=== PATIENT | female | born 1960 | race Caucasian/White ===

== ENCOUNTER 2020-06-16 17:09 | Inpatient (IN) | payer OTHER ==
--- OUTSIDE RECORDS SUMMARY | 2020-06-16 18:56 | XMS REPORT | Continuity of Care Document ---
:1960 Author Organization [facility] t Address [address] [place] [address] Care Team Providers Name Role Phone Lisa BOWEN, Kan Attending Clinician Trev Escalante MD Attending Clinician Problems This patient has no known problems. Allergies, Adverse Reactions, Alerts This patient has no known allergies or adverse reactions. Medications This patient has no known medications. Procedures This patient has no known procedures. Encounters Start End Encounter Admission Attending Care Care Encounter Source Date/Time Date/Time Type Type Clinicians Facility Department ID 2020-06-12 2020-06-12 [facility] [id number] 11:00:00 23:59:00 Encounter [facility] [id number] [place] [id number] [place] [id number] 2019-06-13 2019-06-13 [facility] [id number] 16:45:08 23:59:00 Encounter [facility] [id number] [place] [id number] [place] [id number] 2019-06-13 2019-06-13 [facility] [id number] 16:44:50 16:44:50 Encounter [facility] [id number] [place] [id number] [place] [id number] 2019-06-13 2019-06-13 [facility] [id number] 16:44:31 16:44:31 Encounter Trev [facility] [id number] [place] [id number] [place] [id number] 2019-06-13 2019-06-13 [facility] Chevy Escalante [facility] [id number] 16:44:16 16:44:16 Encounter Trev [facility] [id number] [place] [id number] [place] [id number] 2019-06-13 2019-06-13 [facility] Chevy Escalante [facility] [id number] 16:44:00 16:44:00 Encounter Trev [facility] [id number] [place] [id number] [place] [id number] Results This patient has no known results.
--- NOTE | 2020-06-16 19:57 | P.HP ---
Certification for Inpatient With expected LOS: >2 Midnights Patient will require the following post-hospital care: Rehabilitation Practitioner: I am a practitioner with admitting privileges, knowledge of patient current condition, hospital course, and medical plan of care. Services: Services provided to patient in accordance with Admission requirements found in Title 42 Section 412.3 of the Code of Federal Regulations <[email or web address] gutierrez - Last Filed: 06/16/20 19:52> Patient History Date of Service: 06/16/20 Primary Care Provider: Lisa Reason for admission: Right hip fracture History of Present Illness: 60-year-old female with a past medical history of chronic pain, diabetic neuropathy, history of CVA in 2006, diabetes, hypertension and hypothyroidism presents to the hospital as a direct admit from due to a nondisplaced right hip fracture. Patient states that she has problems with balance ever since her stroke. She was going to the bathroom and tripped falling on her right side. States that this happened approximately 4 weeks ago. States that she has had worsening right hip pain ever since her fall. Today patient was referred to MRI for imaging of her right hip. MRI shows a right intertrochanteric nondisplaced fracture. Patient will be admitted and is scheduled for surgical repair tomorrow morning. 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 -: Hysterectomy -: Bladder suspension Psychosocial/ Personal History: Lives at home with boyfriend of many year - Family History Family History: Reviewed- Non-Contributory - Social History Smoking Status: Never smoker Alcohol use: No CD- Drugs: No Caffeine use: No Place of Residence: Home <Giuseppe Garcia - Last Filed: 06/16/20 19:52> Date of Service: 06/16/20 <Loc Walden - Last Filed: 06/18/20 15:33> Allergies acetaminophen [From Percocet] Allergy (Mild, Verified 06/16/20 23:34) Nausea/Vomiting codeine Allergy (Mild, Verified 06/16/20 23:34) Nausea/Vomiting oxycodone [From Percocet] Allergy (Mild, Verified 06/16/20 23:34) Nausea/Vomiting tramadol Allergy (Mild, Verified 06/16/20 23:34) Nausea/Vomiting Home Medications: ALPRAZolam [Alprazolam] 0.5 mg PO TID PRN 06/16/20 Albuterol Sulfate [Albuterol Sulfate Hfa] 1 puff IN DAILY PRN 06/16/20 Aspirin 81 mg PO DAILY 06/16/20 Clopidogrel Bisulfate [Plavix*] 75 mg PO DAILY 06/16/20 D3/Red Wine/Resveratrol/Malt [Super-D3+ Softgel] 1 cap PO DAILY 06/16/20 Diphenhydramine HCl [Benadryl Allergy] 25 mg PO Q4H PRN 06/16/20 Duloxetine [Cymbalta *] 60 mg PO DAILY 06/16/20 Gabapentin 300 mg PO QID 06/16/20 Glipizide [Glipizide ER] 10 mg PO DAILY 06/16/20 Hydrocodone 10/APAP 325 [Lena 10/325*] 1 tab PO QID PRN 06/16/20 Levothyroxine Sodium 200 mcg PO 0630 06/16/20 Lisinopril [Zestril] 5 mg PO BEDTIME 06/16/20 Magnesium Oxide [Magnesium] 500 mg PO BID 06/16/20 Metformin HCl [Metformin ER Osmotic] 1,000 mg PO BID 06/16/20 Montelukast [Singulair*] 10 mg PO BEDTIME 06/16/20 Omeprazole [Prilosec] 40 mg PO 0730 06/16/20 Simvastatin 10 mg PO BEDTIME 06/16/20 hydroCHLOROthiazide [Hydrochlorothiazide*] 25 mg PO DAILY 06/16/20 Review of Systems General: As per HPI Eyes: Unremarkable ENT: Other (Right ear deafness) Respiratory: Unremarkable Cardiovascular: Unremarkable Gastrointestinal: Unremarkable Genitourinary: Unremarkable Musculoskeletal: Leg Pain (Right hip), As per HPI Integumentary: Unremarkable Neurological: Incoordination (History of balance disorder secondary to CVA in 2006) Lymphatics: Unremarkable <Giuseppe Garcia - Last Filed: 06/16/20 19:52> Physical Examination - Physical Exam General: Alert, In no apparent distress, Oriented x3 HEENT: Atraumatic, Normocephalic, PERRLA Neck: Supple, No Thyromegaly, Other (Trachea midline) Respiratory: Clear to auscultation bilaterally, Normal air movement Cardiovascular: No edema, Normal pulses, Regular rate/rhythm, Normal S1 S2 Capillary refill: <2 Seconds Gastrointestinal: Normal bowel sounds, Soft and benign, Non-distended Musculoskeletal: No clubbing, No swelling, No contractures, No warmth, Tenderness (Right hip) Integumentary: No rashes, No breakdown, No significant lesion Neurological: Normal speech, Normal strength at 5/5 x4 extr, Normal tone, Abnormal gait <Giuseppe Garcia - Last Filed: 06/16/20 19:52> - Studies Laboratory Data (last 24 hrs) 06/17/20 22:22: Potassium 4.2 <Loc Walden - Last Filed: 06/18/20 15:33> Assessment and Plan - Plan Impression: Right nondisplaced intertrochanteric hip fracture: Type 2 diabetes mellitus: Essential hypertension: Chronic pain/neuropathy: Plan: Right nondisplaced intertrochanteric hip fracture: Patient is scheduled for surgical repair of right hip tomorrow morning with . Will keep NPO after midnight. PT consult for after surgery. Patient may need physical therapy and her rehabilitation after her surgery. Type 2 diabetes mellitus: Will start sliding scale insulin. Accu-Cheks a.c. HS. Diabetic diet. Essential hypertension: Will order hydralazine 10 mg q.4 hr for systolic blood pressure greater than 160 and diastolic blood pressure greater than 100. Will resume all medications once verified. Chronic pain/neuropathy: Will continue home pain medications. Discharge Plan: Home Plan to discharge in: Greater than 2 days - Advance Directives Does patient have a Living Will: No Does patient have a Durable POA for Healthcare: No - Code Status/Comfort Care Code Status Assessed: Yes Time Spent Managing Pts Care (In Minutes): 55 <Giuseppe Garcia - Last Filed: 06/16/20 19:52> Date of Service: 06/16/20 Patient is a 60-year-old female who is directly admitted from orthopedic office for hip fracture. Patient will be admitted and taken to the operating room in the morning. Vitals: Reviewed Physical exam: AAO x3 Musculoskeletal; pain on range of motion of the right leg Extremities: No clubbing, no cyanosis, no edema Assessment: 1. Right intratrochanteric hip fracture Plan: 1. Pain control 2. Orthopedic surgery 3. IV antibiotic therapy 4. GI and DVT prophylax <Loc Walden - Last Filed: 06/18/20 15:33>
[2020-06-16 20:32] VITALS: BMI 23.0
[2020-06-16] MEDS: INSULIN -REGULAR HUMAN 50 UNIT/0.5 ML ML SQ SCH (21:34)
[2020-06-16] MEDS: HYDROCODONE/APAP 10/325 TAB PO PRN (21:40)
[2020-06-16] MEDS: HYDRALAZINE HCL 20 MG/ML VIAL IV PRN (22:00)
[2020-06-16 22:59] LABS: Urine Appearance CLOUDY; Urine Bilirubin NEGATIVE (NEG); Urine Blood NEGATIVE (NEG); Urine Color YELLOW; Urine Glucose 2+ (NEG); Urine Protein 1+ (NEG); Urine Specific Gravity 1.015 (1.005-1.030); Urine Urobilinogen 0.2 mg/dL (0.2-1.0); Urine pH 6.5 (5.0-7.0)
[2020-06-16 23:01] LABS: Urine Microscopic Reflex ORDER UMIC
[2020-06-16] MEDS: ALPRAZOLAM 0.5 MG TABLET PO PRN (23:29)
[2020-06-16 23:56] LABS: Urine Culture Reflex Order REFLEXED
[2020-06-16 23:57] LABS: Urine Bacteria LOADED /HPF (<20)
[2020-06-16 23:58] LABS: Urine RBC <5 /HPF (NONE SEEN); Urine Urothelial Cells <5 /HPF (NONE SEEN)
[2020-06-17] MEDS: HEPARIN 5000 UNIT/ML 1 ML VIAL SQ SCH ×3 (00:04→15:40)
[2020-06-17] MEDS: HYDRALAZINE HCL 20 MG/ML VIAL IV PRN (01:55)
[2020-06-17] MEDS: MORPHINE 2 MG/ML SYR IV PRN ×3 (02:47→20:51)
[2020-06-17] MEDS ORDERED: [UNRECOGNIZED DRUG - REMARK] PO PRN (03:00)
[2020-06-17] MEDS ORDERED: ALPRAZOLAM 0.5 MG TABLET PO PRN (03:00)
[2020-06-17] MEDS ORDERED: DIPHENHYDRAMINE 25 MG TAB/CAP PO PRN ×2 (03:06→03:10)
[2020-06-17] MEDS: GABAPENTIN 300 MG CAP PO SCH ×5 (03:45→21:33)
[2020-06-17] MEDS: CEFTRIAXONE/SWI 1gm 1 GM/10 ML SYR IV SCH (03:50)
[2020-06-17] MEDS ORDERED: NA CHLORIDE 0.9% 1,000 ML IV SCH (04:00)
[2020-06-17] MEDS: PANTOPRAZOLE 40MG TABLET PO SCH (05:30)
[2020-06-17] MEDS: LEVOTHYROXINE SOD 0.1 MG TAB PO SCH (05:30)
[2020-06-17] MEDS: HYDROCODONE/APAP 10/325 TAB PO PRN ×3 (06:26→22:55)
[2020-06-17] MEDS ORDERED: HOME MED 1 EA UNK (Levothyroxine Sodium [Levothyroxine Sodium] 200 MCG) PO SCH (06:30)
[2020-06-17 06:42] LABS: Absolute Lymphocytes (CBC) 4.1 K/uL (0.7-4.9); Hematocrit 37.5 % (36.0-45.0); Lymphocytes % 26.1 % (15.3-44.8); MPV 8.2 fL (7.6-11.3); RBC Red Blood Cell Count 5.29 M/uL (3.86-4.86)
[2020-06-17 06:54] LABS: Protime INR 0.93
[2020-06-17 07:03] LABS: Albumin 3.4 g/dL (3.4-5.0); Bilirubin Total 0.3 mg/dL (0.2-1.0); Magnesium 1.5 mg/dL (1.8-2.4); Potassium 3.3 mmol/L (3.5-5.1)
[2020-06-17] MEDS ORDERED: Magnesium Sulfate 2gm IVPB 2 G/50 ML BAG IV ONE (07:07)
[2020-06-17] MEDS: INSULIN -REGULAR HUMAN 50 UNIT/0.5 ML ML SQ SCH ×5 (07:28→21:44)
[2020-06-17] MEDS: hydroCHLOROthiazide 12.5 MG CAP PO SCH (07:30)
[2020-06-17] MEDS: KCL 20 MEQ/100 mL IVPB 20 MEQ/100 ML BAG IV SCH ×2 (07:30→10:00)
[2020-06-17] MEDS ORDERED: PANTOPRAZOLE 40MG TABLET PO SCH (07:30)
[2020-06-17] MEDS: METFORMIN ER 500 MG TAB PO SCH ×2 (07:30→16:19)
--- NOTE | 2020-06-17 08:27 | RAD REPORT ---
EXAM DESCRIPTION: Charlene Single View06/17/2020 6:02 am CLINICAL HISTORY: Preop for hip surgery COMPARISON: 2016 FINDINGS: The right lateral costophrenic sulcus is not included in the field of view and is not eval uated The visualized lungs appear clear of acute infiltrate. Lungs are hyperaerated consistent with COPD The heart is normal size
[2020-06-17 08:29] LABS: Anisocytosis 1+; Blood Morphology Comment NOTED (NOT SEEN); Platelet Estimate INCR; Urine White Blood Cell Casts OK
[2020-06-17] MEDS ORDERED: CEFTRIAXONE 1 GM/NS 50 ML 1 GM/50 ML BAG IV SCH ×2 (09:00)
[2020-06-17] MEDS ORDERED: HOME MED 1 EA UNK (Metformin Hcl [Metformin Er Osmotic] 1,000 MG) PO SCH (09:00)
[2020-06-17] MEDS: NA CHLORIDE 0.9% 1,000 ML IV SCH ×2 (09:41→14:59)
[2020-06-17] MEDS ORDERED: TRANEXAMIC ACID 1,000 MG in NA CHLORIDE 0.9% 50 ML IV ONE (10:00)
--- NOTE | 2020-06-17 10:17 | CON ---
Date of Consultation: 06/17/2020 History Of Present Illness: I have seen this patient in the past, actually saw in office recently. She was there because she was having fairly unremitting pain related to her right hip. X-rays were t aken at that time, which failed to demonstrate any fractures or dislocations. However, based on her history of osteoporosis as well as persistent pain, decision was made to proceed with the MRI and was expecting to find the rami fracture or perhaps sacral insufficiency fracture. However, called by Ra arroyo today and she has an intertrochanteric fracture which is nondisplaced, which basically goes a cross the proximal femur. This was gently recognized as an unstable fracture pattern and could go on to failure or failure to heal. Therefore, she was called at home and [facility] She is admitted under the care of the hospitalist. Review of MRI does reveal a nondisplaced frac ture in the intertrochanteric region. She says that she has had some increasing pain. Risks, benefi ts, and alternatives have been discussed with her both yesterday as well as today, and we will most l ikely proceed with fixation of her hip around 11 this morning. Her questions were otherwise answered . /YOKASTA Voice ID: [id number] Report ID: [id number]
[2020-06-17] MEDS ORDERED: propofoL 200 MG/20 ML VIAL IV ONE (11:09)
[2020-06-17] MEDS ORDERED: FENTANYL CITR 100 MCG/2 ML ONE (11:09)
[2020-06-17] MEDS ORDERED: MIDAZOLAM HCL 2 MG/2 ML INJ ONE (11:09)
[2020-06-17] MEDS ORDERED: LIDOCAINE 2% MPF 5 ML VIAL ONE (11:09)
[2020-06-17] MEDS ORDERED: dexAMETHasone 10 MG/ML VIAL ONE (11:09)
[2020-06-17] MEDS ORDERED: EPHEDRINE SULF 50 MG/ML VIAL ONE (12:25)
[2020-06-17] MEDS ORDERED: KETOROLAC 30 MG/ML INJ ONE (12:50)
--- NOTE | 2020-06-17 12:50 | P.BOP ---
Preoperative diagnosis: right it fracture Postoperative diagnosis: same Primary procedure: right hiup RENEE fixation Estimated blood loss: 20 ccs Anesthesia: General Complications: None Transferred to: Recovery Room Condition: Good
[2020-06-17] MEDS ORDERED: HYDROMORPHONE HCL 0.5 MG/0.5 ML INJ IV PRN (12:56)
[2020-06-17] MEDS: HYDROMORPHONE HCL 1 MG/ML INJ ONE ×4 (13:05→13:22)
[2020-06-17] MEDS ORDERED: ONDANSETRON 4 MG/2 ML VIAL ONE (13:14)
[2020-06-17] MEDS ORDERED: MEPERIDINE HCL 25 MG/ML SYR ONE (13:14)
[2020-06-17] MEDS: MIDAZOLAM HCL 2 MG/2 ML INJ ONE ×2 (13:17→13:56)
--- NOTE | 2020-06-17 13:18 | RAD REPORT ---
EXAM DESCRIPTION: RAD - Hip In Or - 06/17/2020 12:54 pm FINDINGS: A total of 7 images were submitted from a fluoroscopic assisted placement of fracture fixa tion hardware. No suspicious or unexpected finding. Fluoro time was 1.2 minutes. Cumulative dose was 6.42 mGy.
[2020-06-17] MEDS ORDERED: HYDROMORPHONE HCL 1 MG/ML INJ ONE (13:34)
[2020-06-17] MEDS: ONDANSETRON 4 MG/2 ML VIAL IV PRN (20:51)
[2020-06-17] MEDS: ENOXAPARIN 30 MG/0.3 ML SQ SCH (21:00)
[2020-06-17] MEDS: lisinopriL 5 MG TAB PO SCH (21:33)
[2020-06-17] MEDS: MONTELUKAST 10 MG TAB PO SCH (21:33)
[2020-06-17] MEDS: NICOTINE 21 MG/PAT TD SCH ×2 (21:33→22:56)
--- NOTE | 2020-06-17 21:59 | OP ---
Date of Procedure: 06/17/2020 Surgeon: Mahin Gonzalez MD Preoperative Diagnosis: Nondisplaced intertrochanteric fracture on the right. Postoperative Diagnosis: Nondisplaced intertrochanteric fracture on the right. Procedure: Right intertrochanteric fracture closed reduction with intramedullary lashanda fixation. Estimated Blood Loss: 20 cc. Complications: There were no complications. Specimens: No pathology specimen sent. Indications For Operation: Ms. Higgins is a 60-year-old female, who does have a history of fairly sign ificant ostial product change. She came to see me approximately 3 weeks after she had fallen, having very significant amount of difficulty with ambulation, complaining of hip pain. X-rays were taken a t that time in my office did not demonstrate any fracture or dislocation. There was concern for perh aps a small unobserved crack in the femoral neck, however, you would expect that this would be more v isible at this time, also possibility of a pelvic fracture or sacral fracture, and so we ordered an M RI basically just to double check and unfortunately radiologist called with finding of a complete int ertrochanteric fracture with no displacement. She was then brought to the hospital under the care of the hospitalist and cleared, and undergoes fixation of this fracture. The risks, benefits, and alte rnatives of this have been discussed with her. She states she understands things as presented. Description Of Procedure: The patient was taken to the operating room and placed in supine position. General anesthesia was obtained by the staff. Following this, she was then placed on the fracture table where she was properly positioned with regard to her bony prominences as well as probably posit ioned on the fracture table. The C-arm was brought in good AP and lateral views. It was then preppe d and draped in the usual sterile fashion. The greater trochanter was marked out. A vertical incisi on was made just above the greater trochanter, taken down through fascia. A finger was placed into t he incision and the starting awl was then placed without difficulty. This was followed by placement of a guide pin, placed without difficulty. After this, the guide pin was then overreamed and a size 9 x 125 nail was then gently placed to appropriate depth. It was checked under biplanar C-arm radiog veronica as a cephalomedullary screw was then placed. This was followed by placement of a distal interl ocking screw. The wounds were then irrigated and the fascia closed in a watertight fashion using hea vy Vicryl sutures followed by closure of the skin with Vicryl followed by mark. She was then plac ed in Aquacel dressing, awakened, and taken to recovery room. There were no complications. SE/MODL Voice ID: [id number] Report ID: [id number]
[2020-06-18] MEDS: NA CHLORIDE 0.9% 1,000 ML IV SCH ×4 (00:45→20:15)
[2020-06-18] MEDS: MORPHINE 2 MG/ML SYR IV PRN ×4 (00:45→13:25)
[2020-06-18] MEDS: LEVOTHYROXINE SOD 0.1 MG TAB PO SCH (06:30)
[2020-06-18] MEDS: INSULIN -REGULAR HUMAN 50 UNIT/0.5 ML ML SQ SCH ×4 (07:30→20:16)
[2020-06-18] MEDS: PANTOPRAZOLE 40MG TABLET PO SCH (07:37)
[2020-06-18] MEDS: ENOXAPARIN 30 MG/0.3 ML SQ SCH ×2 (08:23→20:16)
[2020-06-18] MEDS: METFORMIN ER 500 MG TAB PO SCH ×2 (08:24→16:26)
[2020-06-18] MEDS: hydroCHLOROthiazide 12.5 MG CAP PO SCH (08:24)
[2020-06-18] MEDS: GABAPENTIN 300 MG CAP PO SCH ×4 (08:25→20:15)
[2020-06-18] MEDS: NICOTINE 21 MG/PAT TD SCH (08:26)
[2020-06-18] MEDS: CEFTRIAXONE/SWI 1gm 1 GM/10 ML SYR IV SCH (08:27)
[2020-06-18] MEDS: HYDROCODONE/APAP 10/325 TAB PO PRN ×2 (10:42→18:00)
--- NOTE | 2020-06-18 15:39 | P.PN ---
Subjective Date of Service: 06/17/20 Patient status post surgery. Continue with pain control. Patient is having significant pain. Continue with physical therapy. Attempting to go to inpatient rehab afterwards. Review of Systems 10-point ROS is otherwise unremarkable Physical Examination - Vital Signs Temperature: 97.8 F Blood Pressure: 143/69 Pulse: 97 Respirations: 20 Pulse Ox (%): 98 - Physical Exam General: Alert, In no apparent distress, Oriented x3 Respiratory: Clear to auscultation bilaterally, Normal air movement Cardiovascular: Regular rate/rhythm, Normal S1 S2, No murmurs Gastrointestinal: Normal bowel sounds, No tenderness Musculoskeletal: No clubbing, No swelling, Tenderness Integumentary: No rashes Neurological: Sensation intact - Studies Laboratory Data (last 24 hrs) 06/17/20 22:22: Potassium 4.2 Medications List Reviewed: Yes Assessment & Plan - Problems (Diagnosis) (1) Intertrochanteric fracture of right femur Current Visit: Yes Status: Acute (2) Status post open reduction and internal fixation (ORIF) of fracture Current Visit: Yes Status: Acute (3) Hypertension Current Visit: Yes Status: Acute Qualifiers: Hypertension type: essential hypertension Qualified Code(s): I10 - Essential (primary) hypertension (4) Type 2 diabetes mellitus Current Visit: Yes Status: Acute 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 Physical therapy evaluation 2. DVT prophylaxis 3. Strict blood sugar and blood pressure control 4. Continue with cardiac med 5. GI and DVT prophylaxis Discharge Plan: Home Plan to discharge in: Greater than 2 days - Advance Directives Does patient have a Living Will: No Does patient have a Durable POA for Healthcare: No - Code Status/Comfort Care Code Status Assessed: Yes Code Status: Full Code Critical Care: No Time Spent Managing PTS Care (In Minutes): 30
[2020-06-18] MEDS: HYDROMORPHONE HCL 0.5 MG/0.5 ML INJ IV PRN ×2 (16:00→20:16)
[2020-06-18] MEDS: HYDRALAZINE HCL 20 MG/ML VIAL IV PRN (16:27)
[2020-06-18] MEDS: ONDANSETRON 4 MG/2 ML VIAL IV PRN (17:09)
[2020-06-18] MEDS: lisinopriL 5 MG TAB PO SCH (20:15)
[2020-06-18] MEDS: MONTELUKAST 10 MG TAB PO SCH (20:15)
[2020-06-18] MEDS: ALPRAZOLAM 0.5 MG TABLET PO PRN (23:29)
[2020-06-19] MEDS: HYDROMORPHONE HCL 0.5 MG/0.5 ML INJ IV PRN ×2 (01:19→09:25)
[2020-06-19] MEDS: NA CHLORIDE 0.9% 1,000 ML IV SCH ×3 (01:36→12:29)
[2020-06-19 02:27] VITALS: O2SAT 98
[2020-06-19] MEDS: LEVOTHYROXINE SOD 0.1 MG TAB PO SCH (05:18)
[2020-06-19] MEDS: PANTOPRAZOLE 40MG TABLET PO SCH (05:18)
[2020-06-19] MEDS: HYDRALAZINE HCL 20 MG/ML VIAL IV PRN (05:18)
--- NOTE | 2020-06-19 05:22 | PN ---
Date of Progress Note: 06/18/2020 Subjective: The patient is seen today. She is conversant. She says she does have some soreness in her hip, otherwise doing well. Objective: Her dressing is clean, dry, and intact. She is neurovascularly intact. Assessment And Plan: I think that she is doing well as it is completely nondisplaced. We will go ah ead and weightbearing as tolerated with physical therapy. [facility] and an opinion of the hospitalist. I think she does need to be on anticoagulation for 3 weeks and then aspirin for 3 weeks. Her mark were removed at 2 weeks. All of her questions we re otherwise answered. SE/MODL Voice ID: [id number] Report ID: [id number]
[2020-06-19] MEDS: INSULIN -REGULAR HUMAN 50 UNIT/0.5 ML ML SQ SCH ×2 (07:30→11:30)
[2020-06-19] MEDS: ENOXAPARIN 30 MG/0.3 ML SQ SCH (09:00)
[2020-06-19] MEDS: hydroCHLOROthiazide 12.5 MG CAP PO SCH (09:15)
[2020-06-19] MEDS: NICOTINE 21 MG/PAT TD SCH (09:16)
[2020-06-19] MEDS: GABAPENTIN 300 MG CAP PO SCH ×2 (09:16→13:25)
[2020-06-19] MEDS: CEFTRIAXONE/SWI 1gm 1 GM/10 ML SYR IV SCH (09:16)
[2020-06-19] MEDS: METFORMIN ER 500 MG TAB PO SCH (09:16)
[2020-06-19] MEDS: HYDROCODONE/APAP 10/325 TAB PO PRN (13:28)
--- NOTE | 2020-06-19 14:01 | P.PN ---
Subjective Date of Service: 06/18/20 Patient did well with physical therapy. 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 Anticipate discharge in next 24-48 hr. Review of Systems 10-point ROS is otherwise unremarkable Physical Examination - Vital Signs Temperature: 97.3 F Blood Pressure: 146/76 Pulse: 109 Respirations: 18 Pulse Ox (%): 97 - Physical Exam General: Alert, In no apparent distress, Oriented x3 Respiratory: Clear to auscultation bilaterally, Normal air movement Cardiovascular: Regular rate/rhythm, Normal S1 S2, No murmurs Gastrointestinal: Normal bowel sounds, Soft and benign, Non-distended, No tenderness Musculoskeletal: No clubbing, No swelling, No tenderness Neurological: Sensation intact, Cranial nerves 3-12 intact - Studies Microbiology Data (last 24 hrs): 06/16/20 22:35 Clean Catch Urine Mcdonald Count - Final >100,000 CFU/ML. 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 Physical therapy evaluation appreciated. Patient walked to the lab with physical therapy today. Possible discharge tomorrow or day after 2. DVT prophylaxis; continue Eliquis 2.5mg b.i.d. at discharge 3. Strict blood sugar and blood pressure control 4. Continue with cardiac med 5. GI and DVT prophylaxis Discharge Plan: Home Plan to discharge in: 48 Hours - Advance Directives Does patient have a Living Will: No Does patient have a Durable POA for Healthcare: No - Code Status/Comfort Care Code Status: Full Code Critical Care: No Time Spent Managing PTS Care (In Minutes): 30
[2020-06-19 16:30] VITALS: BP 110/72; TEMP 97
--- NOTE | 2020-06-20 08:48 | P.DS ---
Discharge Date: 06/19/20 Primary Care Provider: Lisa Disposition: ROUTINE DISCHARGE Discharge Condition: GOOD Reason for Admission: Right hip fracture - Problems (1) Intertrochanteric fracture of right femur Status: Acute (2) Status post open reduction and internal fixation (ORIF) of fracture Status: Acute (3) Hypertension Status: Acute Qualifiers: Hypertension type: essential hypertension Qualified Code(s): I10 - Essential (primary) hypertension (4) Type 2 diabetes mellitus Status: Acute Qualifiers: Diabetes mellitus retirement insulin use: with retirement use (5) History of stroke Status: Acute Brief History of Present Illness: 60-year-old female with a past medical history of chronic pain, diabetic neuropathy, history of CVA in 2006, diabetes, hypertension and hypothyroidism presents to the hospital as a direct admit from due to a nondisplaced right hip fracture. Patient states that she has problems with balance ever since her stroke. She was going to the bathroom and tripped falling on her right side. States that this happened approximately 4 weeks ago. States that she has had worsening right hip pain ever since her fall. Today patient was referred to MRI for imaging of her right hip. MRI shows a right intertrochanteric nondisplaced fracture. Patient will be admitted and is scheduled for surgical repair tomorrow morning. Hospital Course: Patient did well after surgery. Patient ambulating with physical therapy. Patient's pain is well-controlled. Patient is clinically doing well. At this time, patient is stable for discharge with home health. Patient will follow up with PCP in 1-2 weeks. Vital Signs/Physical Exam: Temp Pulse Resp BP Pulse Ox 97.0 F 105 H 16 110/72 97 06/19/20 16:00 06/19/20 16:00 06/19/20 16:00 06/19/20 16:00 06/19/20 16:00 General: Alert, In no apparent distress, Oriented x3 Laboratory Data at Discharge: WBC 15.6 K/uL (4.3-10.9) H 06/17/20 06:21 Hgb 12.1 g/dL (12.0-15.0) 06/17/20 06:21 Hct 37.5 % (36.0-45.0) 06/17/20 06:21 Plt Count 412 K/uL (152-406) H 06/17/20 06:21 PT 11.0 SECONDS (9.5-12.5) 06/17/20 06:21 INR 0.93 06/17/20 06:21 APTT 33.9 SECONDS (24.3-36.9) 06/17/20 06:21 Sodium 133 mmol/L (136-145) L 06/17/20 06:21 Potassium 4.2 mmol/L (3.5-5.1) 06/17/20 22:22 BUN 11 mg/dL (7-18) 06/17/20 06:21 Creatinine 0.77 mg/dL (0.55-1.3) 06/17/20 06:21 Glucose 218 mg/dL (74-106) H 06/17/20 06:21 Magnesium 2.2 mg/dL (1.8-2.4) D 06/17/20 14:23 Total Bilirubin 0.3 mg/dL (0.2-1.0) 06/17/20 06:21 AST 13 U/L (15-37) L 06/17/20 06:21 ALT 15 U/L (12-78) 06/17/20 06:21 Alkaline Phosphatase 145 U/L (45-117) H 06/17/20 06:21 Home Medications: ALPRAZolam [Alprazolam] 0.5 mg PO TID PRN 06/16/20 Albuterol Sulfate [Albuterol Sulfate Hfa] 1 puff IN DAILY PRN 06/16/20 Aspirin 81 mg PO DAILY 06/16/20 Clopidogrel Bisulfate [Plavix*] 75 mg PO DAILY 06/16/20 D3/Red Wine/Resveratrol/Malt [Super-D3+ Softgel] 1 cap PO DAILY 06/16/20 Diphenhydramine HCl [Benadryl Allergy] 25 mg PO Q4H PRN 06/16/20 Duloxetine [Cymbalta *] 60 mg PO DAILY 06/16/20 Gabapentin 300 mg PO QID 06/16/20 Glipizide [Glipizide ER] 10 mg PO DAILY 06/16/20 Hydrocodone 10/APAP 325 [[place] 10/325*] 1 tab PO QID PRN 06/16/20 Levothyroxine Sodium 200 mcg PO 0630 06/16/20 Lisinopril [Zestril] 5 mg PO BEDTIME 06/16/20 Magnesium Oxide [Magnesium] 500 mg PO BID 06/16/20 Metformin HCl [Metformin ER Osmotic] 1,000 mg PO BID 06/16/20 Montelukast [Singulair*] 10 mg PO BEDTIME 06/16/20 Omeprazole [Prilosec] 40 mg PO 0730 06/16/20 Simvastatin 10 mg PO BEDTIME 06/16/20 hydroCHLOROthiazide [Hydrochlorothiazide*] 25 mg PO DAILY 06/16/20 Enoxaparin Sodium [Lovenox 30 MG INJ] 30 mg SQ DAILY #14 syr 06/19/20 New Medications: Enoxaparin Sodium [Lovenox 30 MG INJ] 30 mg SQ DAILY #14 syr Patient Discharge Instructions: OK TO DC IV AND DC HOME. FOLLOW-UP WITH PRIMARY CARE PROVIDER IN 1-2 WEEKS. FOLLOW-UP WITH ORTHOPEDICS IN 1-2 WEEKS. RETURN TO THE ER IF symptoms worsen. CALL or TEXT DR. BORGES AT [phone] IF ANY QUESTIONS REGARDING HOSPITAL STAY. PLEASE CALL THE FLOOR AT [phone] IF ANY MEDICATION OR NURSING QUESTIONS. Diet: AHA Activity: Fall precautions Followup: Mahin Gonzalez MD [ACTIVE - CAN ADMIT] - Time spent managing pt's care (in minutes): 25
== END 2020-06-19 16:45 | disposition home health service (06) | DRG 482 ==
LOC: 2ND 18:55
PROVIDERS: ADMIT Hospitalist; ATTEND Hospitalist
PROC: 0QS606Z Reposition Right Upper Femur with Intramedullary Internal Fixation Device, Open Approach (ICD-10-PCS; principal; 2020-06-17 12:00)
DX: S72.144A Nondisplaced intertrochanteric fracture of right femur, initial encounter for closed fracture (principal); E11.40 Type 2 diabetes mellitus with diabetic neuropathy, unspecified; I10 Essential (primary) hypertension; E03.9 Hypothyroidism, unspecified; W01.0XXA Fall on same level from slipping, tripping and stumbling without subsequent striking against object, initial encounter; Z79.82 Long term (current) use of aspirin; Y92.002 Bathroom of unspecified non-institutional (private) residence as the place of occurrence of the external cause; Z79.84 Long term (current) use of oral hypoglycemic drugs; Z11.59 Encounter for screening for other viral diseases
CPT/HCPCS: 36415; 71045; 73530; 80053; 81003; 81015; 82947; 83605; 83735; 84132; 85025; 85610; 85730; 87077; 87086; 87088; 87186; 97110; 97116; 97161; 97530; J0360; J0696; J1100; J1170; J1644; J1650; J2175; J2250; J2270; J2405; J2704; J3010; J3475; J3480; J7030; U0003

== ENCOUNTER 2021-06-17 10:23 | Emergency (ER) | payer OTHER ==
--- OUTSIDE RECORDS SUMMARY | 2021-06-17 10:26 | XMS REPORT | Continuity of Care Document ---
:1960 Author Organization [facility] t Address [address] [place] [address] Care Team Providers Name Role Phone Tomi العراقي DO Attending Clinician Lisa BOWEN, Kan Attending Clinician Boris BOWEN, Trev Attending Clinician Problems This patient has no known problems. Allergies, Adverse Reactions, Alerts This patient has no known allergies or adverse reactions. Medications This patient has no known medications. Procedures This patient has no known procedures. Encounters Start End Encounter Admission Attending Care Care Encounter Source Date/Time Date/Time Type Type Clinicians Facility Department ID 2021-01-13 2021-01-13 Patient Malcom [facility] [id number] 00:00:00 00:00:00 Outreach [facility] [id number] Tomi [facility] [id number] [place] [id number] 2020-06-12 2020-06-12 [facility] [id number] 11:00:00 23:59:00 Encounter [facility] [id number] [place] [id number] [place] [id number] 2019-06-13 2019-06-13 [facility] Chevy Escalante [facility] [id number] 16:45:08 23:59:00 Encounter [facility] [id number] [place] [id number] [place] [id number] 2019-06-13 2019-06-13 [facility] Chevy Escalante [facility] [id number] 16:44:50 16:44:50 Encounter [facility] [id number] [place] [id number] [place] [id number] 2019-06-13 2019-06-13 [facility] Chevy Escalante [facility] [id number] 16:44:31 16:44:31 Encounter [facility] [id number] [place] [id number] [place] [id number] 2019-06-13 2019-06-13 [facility] Chevy Escalante [facility] [id number] 16:44:16 16:44:16 Encounter Tre[facility] [id number] [place] [id number] [place] [id number] 2019-06-13 2019-06-13 [facility] Chevy Escalante [facility] [id number] 16:44:00 16:44:00 Encounter Trev [facility] [id number] [place] [id number] [place] [id number] Results This patient has no known results.
--- NOTE | 2021-06-17 14:18 | RAD REPORT ---
EXAM DESCRIPTION: RAD - Chest Pa And Lat (2 Views) - 06/17/2021 2:04 pm CLINICAL HISTORY: DYSPNEA Chest pain. COMPARISON: Chest Single View dated 06/17/2020; Chest Pa And Lat (2 Views) dated 01/27/2017 FINDINGS: The lungs are mildly hyperexpanded but clear. The heart is normal in size. No displaced fr actures. IMPRESSION: Mild diffuse COPD.
[2021-06-17] MEDS ORDERED: MEPERIDINE HCL 50 MG/ML ONE (14:28)
[2021-06-17] MEDS ORDERED: PROMETHAZINE INJ 25 MG/ML AMP ONE (14:29)
--- NOTE | 2021-06-17 14:47 | ER ---
Nurse's Notes [facility] Name: Sourav Higgins Age: 61 yrs Sex: Female : 1960 Arrival Date: 06/17/2021 Time: 10:26 Bed DX1 Private MD: Diagnosis: Tobacco abuse counseling;Tobacco use;COPD/ Chronic obstructive pulmonary disease, unspecified;Chest pain, unspecified-contusion;UTI/ Urinary tract infection, site not specified Presentation: 06/17 10:59 Chief complaint: Patient states: "I fell early this morning trying to make it to the aa5 potty chair". Pt c/o pain to left side of abdomen. Pt states "I think I have a UTI". Coronavirus screen: At this time, the client does not indicate any symptoms associated with coronavirus-19. Ebola Screen: Patient negative for fever greater than or equal to 101.5 degrees Fahrenheit, and additional compatible Ebola Virus Disease symptoms. Initial Sepsis Screen: Does the patient meet any 2 criteria? No. Patient's initial sepsis screen is negative. Does the patient have a suspected source of infection? No. Patient's initial sepsis screen is negative. Risk Assessment: Do you want to hurt yourself or someone else? Patient reports no desire to harm self or others. Onset of symptoms was June 17, 2021. 10:59 Method Of Arrival: Wheelchair aa5 10:59 Acuity: ERIN 3 aa5 Triage Assessment: 15:07 General: Appears in no apparent distress. Behavior is calm, cooperative, appropriate kg for age, quiet. Pain: Complains of pain in abdomen. 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 per her doctor's recommmendation. - Social history:: Smoking status: Patient reports the use of cigarette tobacco products, smokes one pack cigarettes per day. Screenin:07 Abuse screen: Denies threats or abuse. Denies injuries from another. Nutritional kg screening: No deficits noted. Tuberculosis screening: No symptoms or risk factors identified. Fall Risk None identified. Assessment: 14:00 General: Appears in no apparent distress. Behavior is calm, cooperative, appropriate kg for age, quiet. Pain: Complains of pain in abdomen Pain radiates to chest. Cardiovascular: Reports chest pain, Heart tones S1 S2. Respiratory: No deficits noted. Respiratory: Respiratory effort is even, unlabored, relaxed, shallow, Respiratory pattern is hypoventilation. Vital Signs: 10:59 BP 160 / 94; Pulse 93; Resp 14 S; Temp 98.6(O); Pulse Ox 100% on R/A; Weight 58.97 kg aa5 (R); Height 5 ft. 3 in. (160.02 cm) (R); Pain 6/10; 15:08 BP 156 / 90; Pulse 85; Resp 18; Pulse Ox 100% on R/A; kg 10:59 Body Mass Index 23.03 (58.97 kg, 160.02 cm) aa5 ED Course: 10:26 Patient arrived in ED. cl3 10:58 Arm band placed on. aa5 11:00 Triage completed. aa5 12:22 Josef Barrow MD is Attending Physician. jerry 12:26 Gill Scott, AMAIRANI is Primary Nurse. kg 12:51 Urine Culture Sent. kg 12:51 Urine Culture Sent. kg 13:50 Patient moved to radiology via wheelchair. md1 14:04 Patient moved back from radiology. md1 14:05 Chest Pa And Lat (2 Views) XRAY In Process Unspecified. EDMS 14:40 INCENTIVE SPIROMETRY Sent. kg 15:07 Patient has correct armband on for positive identification. kg 15:07 No provider procedures requiring assistance completed. Patient did not have IV access kg during this emergency room visit. Administered Medications: 14:12 Drug: Demerol (meperidine) 50 mg Route: IM; Site: right deltoid; kg 14:40 Follow up: Response: No adverse reaction; Pain is decreased kg 14:40 Follow up: Response: No adverse reaction kg 14:12 Drug: Phenergan (promethazine) 25 mg Route: IM; Site: right deltoid; kg 14:50 Follow up: Response: No adverse reaction; Marked relief of symptoms ch5 14:50 Drug: Rocephin (cefTRIAXone) 1 grams Route: IM; Site: right deltoid; ch5 15:08 Follow up: Response: No adverse reaction kg 14:51 Drug: Augmentin (Amoxicillin-Clavulanate) 875 mg Route: PO; ch5 15:08 Follow up: Response: No adverse reaction kg Outcome: 14:46 Discharge ordered by . jerry 15:07 Discharged to home via wheelchair. kg 15:07 Condition: improved kg 15:07 Discharge instructions given to patient, Instructed on discharge instructions, follow up and referral plans. Demonstrated understanding of instructions, follow-up care, medications, Prescriptions given X 1, 2. 15:13 Patient left the ED. kg Addendum: 06/20/2021 07:17 Addendum: Culture Results: Positive urine culture. No further action required. Bacteria e b sensitive to prescribed antibiotic. Signatures: Dispatcher [employer] EDMS Josef Barrow MD MD cha Calderon, Audri, RN RN aa5 Elda Garcia Charde 3 Nadja Grimaldo md1 Gill Scott, AMAIRANI RN Vick De La Rosa RN RN 5 Corrections: (The following items were deleted from the chart) 06/17 11:00 10:59 BP 160 / 94; Pulse 93bpm; Resp 14bpm; Spontaneous; Pulse Ox 100% RA; Temp 98.6F aa5 Oral; 58.97 kg Reported; Height 5 ft. 3 in. Reported; BMI: 23.0; aa5 13:46 12:51 To radiology for Wrist Left 3 View+RAD.RAD.BRZ. kg EDRI 14:04 13:50 Patient moved to radiology Patient moved back from radiology. rahat giang
--- NOTE | 2021-06-17 14:47 | EDPHYS ---
Physician Documentation [facility] Name: Sourav Higgins Age: 61 yrs Sex: Female : 1960 Arrival Date: 06/17/2021 Time: 10:26 Bed DX1 Private MD: ED Physician Josef Barrow HPI: 06/17 14:28 This 61 yrs old Female presents to ER via Wheelchair with complaints of Fall jerry Injury, Wrist Injury. 14:28 Details of fall: The patient fell from an upright position, while walking. Onset: The jerry symptoms/episode began/occurred this morning. Associated injuries: The patient sustained injury to the chest, specifically the anterior aspect of left upper chest, left lateral posterior chest, left lateral anterior chest and left breast, contusion. Severity of symptoms: At their worst the symptoms were mild, in the emergency department the symptoms are unchanged. The patient has experienced similar episodes in the past, a few times. 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 per her doctor's recommmendation. - Social history:: Smoking status: Patient reports the use of cigarette tobacco products, smokes one pack cigarettes per day. ROS: 14:28 Constitutional: Negative for fever, chills, and weight loss, Eyes: Negative for injury, jerry pain, redness, and discharge, ENT: Negative for injury, pain, and discharge, Neck: Negative for injury, pain, and swelling, Cardiovascular: Negative for chest pain, palpitations, and edema, Respiratory: Negative for shortness of breath, cough, wheezing, and pleuritic chest pain, Abdomen/GI: Negative for abdominal pain, nausea, vomiting, diarrhea, and constipation, Back: Negative for injury and pain, MS/Extremity: Negative for injury and deformity, Skin: Negative for injury, rash, and discoloration, Neuro: Negative for headache, weakness, numbness, tingling, and seizure, Psych: Negative for depression, anxiety, suicide ideation, homicidal ideation, and hallucinations, Allergy/Immunology: Negative for hives, rash, and allergies, Endocrine: Negative for neck swelling, polydipsia, polyuria, polyphagia, and marked weight changes, Hematologic/Lymphatic: Negative for swollen nodes, abnormal bleeding, and unusual bruising. 14:28 : Positive for urinary symptoms, of the suprapubic area. Exam: 14:28 Constitutional: This is a well developed, well nourished patient who is awake, alert, jerry and in no acute distress. Head/Face: Normocephalic, atraumatic. Eyes: Pupils equal round and reactive to light, extra-ocular motions intact. Lids and lashes normal. Conjunctiva and sclera are non-icteric and not injected. Cornea within normal limits. Periorbital areas with no swelling, redness, or edema. ENT: Nares patent. No nasal discharge, no septal abnormalities noted. Tympanic membranes are normal and external auditory canals are clear. Oropharynx with no redness, swelling, or masses, exudates, or evidence of obstruction, uvula midline. Mucous membranes moist. Neck: Trachea midline, no thyromegaly or masses palpated, and no cervical lymphadenopathy. Supple, full range of motion without nuchal rigidity, or vertebral point tenderness. No Meningismus. Cardiovascular: Regular rate and rhythm with a normal S1 and S2. No gallops, murmurs, or rubs. Normal PMI, no JVD. No pulse deficits. Respiratory: Lungs have equal breath sounds bilaterally, clear to auscultation and percussion. No rales, rhonchi or wheezes noted. No increased work of breathing, no retractions or nasal flaring. Abdomen/GI: Soft, non-tender, with normal bowel sounds. No distension or tympany. No guarding or rebound. No evidence of tenderness throughout. Back: No spinal tenderness. No costovertebral tenderness. Full range of motion. Female : Normal external genitalia. Skin: Warm, dry with normal turgor. Normal color with no rashes, no lesions, and no evidence of cellulitis. MS/ Extremity: Pulses equal, no cyanosis. Neurovascular intact. Full, normal range of motion. Neuro: Awake and alert, GCS 15, oriented to person, place, time, and situation. Cranial nerves II-XII grossly intact. Motor strength 5/5 in all extremities. Sensory grossly intact. Cerebellar exam normal. Normal gait. Psych: Awake, alert, with orientation to person, place and time. Behavior, mood, and affect are within normal limits. 14:28 Chest/axilla: Inspection: normal, Palpation: tenderness, that is mild, of the left lateral posterior chest and left lateral anterior chest. 14:28 Abdomen/GI: Inspection: abdomen appears normal, Bowel sounds: normal, Palpation: nontender, Liver: no appreciated palpable abnormalities, Hernia: not appreciated. 14:28 : CVA tenderness, is absent, Pelvic Exam: is not necessary for this patient, Bladder: tenderness, that is mild. Vital Signs: 10:59 BP 160 / 94; Pulse 93; Resp 14 S; Temp 98.6(O); Pulse Ox 100% on R/A; Weight 58.97 kg aa5 (R); Height 5 ft. 3 in. (160.02 cm) (R); Pain 6/10; 15:08 BP 156 / 90; Pulse 85; Resp 18; Pulse Ox 100% on R/A; kg 10:59 Body Mass Index 23.03 (58.97 kg, 160.02 cm) aa5 MDM: 12:22 Patient medically screened. [facility] 14:28 Differential diagnosis: contusion, fracture, sprain, strain. Differential diagnosis: jerry Blunt Chest Trauma Chest Wall Contusion Chest Wall Injury Pleural Effusion Pneumothorax Pulmonary Contusion Rib Fracture. Data reviewed: vital signs, nurses notes, radiologic studies, plain films. Data interpreted: tear down man: rate is 93 beats/min, rhythm is regular, Pulse oximetry: on room air is 100 %. Test interpretation: by ED physician or midlevel provider: plain radiologic studies. Counseling: I had a detailed discussion with the patient and/or guardian regarding: the historical points, exam findings, and any diagnostic results supporting the discharge/admit diagnosis, lab results, radiology results. 06/17 12:23 Order name: Urine Culture [facility] 06/17 12:24 Order name: Urine Culture [facility] 06/17 13:46 Order name: Chest Pa And Lat (2 Views) XRAY; Complete Time: 14:23 [facility] 06/17 14:13 Order name: Urine Dipstick--Ancillary (enter results) 06/17 12:23 Order name: Urine Dipstick-Ancillary (obtain specimen); Complete Time: 12:51 [facility] 06/17 12:23 Order name: Ice pack; Complete Time: 12:29 [facility] 06/17 14:27 Order name: INCENTIVE SPIROMETRY jerry Administered Medications: 14:12 Drug: Demerol (meperidine) 50 mg Route: IM; Site: right deltoid; kg 14:40 Follow up: Response: No adverse reaction; Pain is decreased kg 14:40 Follow up: Response: No adverse reaction kg 14:12 Drug: Phenergan (promethazine) 25 mg Route: IM; Site: right deltoid; kg 14:50 Follow up: Response: No adverse reaction; Marked relief of symptoms ch5 14:50 Drug: Rocephin (cefTRIAXone) 1 grams Route: IM; Site: right deltoid; ch5 15:08 Follow up: Response: No adverse reaction kg 14:51 Drug: Augmentin (Amoxicillin-Clavulanate) 875 mg Route: PO; ch5 15:08 Follow up: Response: No adverse reaction kg Disposition Summary: 06/17/21 14:46 Discharge Ordered Location: Home jerry Problem: new jerry Symptoms: have improved jerry Condition: Stable jerry Diagnosis - Tobacco abuse counseling jerry - Tobacco use jerry - COPD/ Chronic obstructive pulmonary disease, unspecified jerry - Chest pain, unspecified - contusion jerry - UTI/ Urinary tract infection, site not specified jerry Followup: jerry - With: Private Physician - When: 2 - 3 days - Reason: Recheck today's complaints, Continuance of care, Re-evaluation by your physician Discharge Instructions: - Discharge Summary Sheet jerry - Chest Wall Pain jerry - Chronic Obstructive Pulmonary Disease jerry - Dysuria jerry - Fall Prevention in the Home, Adult jerry - Urinary Tract Infection, Adult jerry - How to Use an Incentive Spirometer jerry - Chronic Obstructive Pulmonary Disease, [id number]-[id number] jerry - Chest Wall Pain, Blmp-cf-Ruuv jerry - Urinary Tract Infection, Adult, [id number]-yc-Apzq jerry - Fall Prevention in the Home, Adult, [id number] [facility] Forms: - Medication Reconciliation Form [facility] - Thank You Letter [facility] - Antibiotic Education [facility] - Prescription Opioid Use [facility] Prescriptions: - Augmentin 875-125 mg Oral Tablet - take 1 tablet by ORAL route every 12 hours for 7 days; 14 tablet; Refills: 0, [facility] Product Selection Permitted - Tramadol 50 mg Oral Tablet - take 1 tablet by ORAL route every 8 hours as needed; 20 tablet; Refills: 0, [facility] Product Selection Permitted Signatures: Dispatcher [employer] EDMS Josef Barrow MD MD cha Calderon, Audri, RN RN aa5 Gill Scott, RN RN kg Vick De La Rosa RN RN ch5 Corrections: (The following items were deleted from the chart) 13:46 12:24 Wrist Left 3 View+RAD.RAD.BRZ ordered. EDMS EDMS
[2021-06-17] MEDS ORDERED: CEFTRIAXONE 1000 MG/VIAL ONE (15:07)
[2021-06-17] MEDS ORDERED: AMOX/K CLAV 875 MG TAB ONE (15:18)
[2021-06-17 15:19] VITALS: TEMP 98.6; O2SAT 100
[2021-06-17 15:20] VITALS: BP 156/90
== END 2021-06-17 15:13 | disposition home or self-care (01) ==
LOC: ER 10:23
DX: S20.219A Contusion of unspecified front wall of thorax, initial encounter (principal); N39.0 Urinary tract infection, site not specified; J44.9 Chronic obstructive pulmonary disease, unspecified; I10 Essential (primary) hypertension; W19.XXXA Unspecified fall, initial encounter; Y93.01 Activity, walking, marching and hiking; Z71.6 Tobacco abuse counseling; Z72.0 Tobacco use; Z88.5 Allergy status to narcotic agent
CPT/HCPCS: 87088; 87086; 87077; 87186; 71046; 96372; 99284; J2550; J2175

== ENCOUNTER 2021-10-10 21:57 | Emergency (ER) | payer OTHER ==
--- OUTSIDE RECORDS SUMMARY | 2021-10-10 22:02 | XMS REPORT | Continuity of Care Document ---
:1960 Author Organization [facility] t Address [address] [place] [address] Care Team Providers Name Role Phone Trev Bridges MD Primary Care Physician Cristhian Garcia Attending Clinician Doctor Unassigned, Name Attending Clinician Unavailable Tomi العراقي DO Attending Clinician Shaye Attending Clinician Unavailable Kan Gonzalez MD Attending Clinician KAN GONZALEZ Attending Clinician Unavailable Solange ALLEN Attending Clinician Unavailable Trev Bridges MD Attending Clinician TREV BRIDGES Attending Clinician Unavailable Shaye Admitting Clinician Unavailable Payers Payer Name Policy Type Policy Number Effective Date Expiration Date S ource [employer] (MEDICARE [id number] REPLACEMENT/ADVAN TAGE - PPO) [employer] CHOICE [id number] 2014 00:00:00 Problems Condition Condition Condition Status Onset Resolution Last Treating Co mments Source Name Details Category Date Date Treatment Clinician Date Hip Hip Disease Active 2017-10 Univers fracture fracture 1-18 ity of 00:00: [place] 00 Medical Branch Foot pain, Foot pain, Disease Active U nivers left left 6-20 ity of 00:00: [place] 00 Medical Branch Allergies, Adverse Reactions, Alerts Allergy Allergy Status Severity Reaction(s) Onset Inactive Treating Comm ents Source Name Type Date Date Clinician Fish Propensi Active Nausea 2018-10 Univers Containi ty to and/or 1-11 ity of ng adverse Vomiting 00:00: [place] Products reaction 00 Medica l s Branch Strawber Propensi Active Hives 2019- Univer s ry ty to 1-11 ity of adverse 00:00: [place] reaction 00 Medical s Branch FISH Drug Active High N/V 2019- Univers CONTAINI Class 1-11 ity of NG 00:00: [place] PRODUCTS 00 Medical Branch STRAWBER DRUG Active High Hives 2019- Univers RY INGREDI 1-11 ity of 00:00: [place] 00 Medical Branch TRAMADOL DRUG Active N/V 2018- Univers INGREDI 1-18 ity of 00:00: [place] 00 Medical Branch Tramadol Propensi Active Nausea 2018-1 Univer s ty to and/or 1-18 ity of adverse Vomiting 00:00: [place] reaction 00 Medical Branch Codeine Propensi Active Itching 2016-0 Univer s ty to 6-07 ity of adverse 00:00: [place] reaction 00 Medical [facility] OXYCODON DRUG Active Hives 2016-0 Univers E-ACETAM 6-07 ity of INOPHEN 00:00: [place] 00 Medical Branch THIMEROS DRUG Active N/V 2016-0 Univers AL INGREDI 6-07 ity of 00:00: [place] 00 Medical Branch CODEINE DRUG Active Low N/V 2016-0 Univers INGREDI 6-07 ity of 00:00: [place] 00 Medical [place] Oxycodon Propensi Active Hives 2016-0 Univer s e-Acetam ty to 6-07 ity of inophen adverse 00:00: [place] reaction 00 Medical [facility] Thimeros Propensi Active Nausea 2016-0 Univer s al ty to and/or 6-07 ity of adverse Vomiting 00:00: [place] reaction 00 [facility] Social History Social Habit Start Date Stop Date Quantity Comments Source Exposure to Not sure University of SARS-CoV-2 (event) [facility] History of tobacco Cigarette Smoker University of use [facility] Alcohol intake 2021-07-27 2021-07-27 0 /d University of 00:00:00 00:00:00 [facility] Tobacco use and 2019-09-03 2019-09-03 Never used Universit y of exposure 00:00:00 00:00:00 [facility] Cigarettes smoked 2019-09-03 2019-09-03 Univers ity of current (pack per 00:00:00 00:00:00 ) - Reported Branch Cigarette 2019-09-03 2019-09-03 University of pack-years 00:00:00 00:00:00 [facility] Sex [birth year] At [birth year] Universit y of 00:00:00 00:00:00 [facility] Smoking Status Start Date Stop Date Source Current every day smoker 2019-09-03 00:00:00 Uni versity of [facility] Medications Ordered Filled Start Stop Current Ordering Indication Dosage Frequency Signature Comments Components Source Medication Medication Date Date Medication? Clinician (SIG) Name Name clopidogrel 2017-10 Yes 75mg Take 75 mg Univers 75 mg -22 by mouth ity of tablet 00:13: daily. [address] Branch Cholecalcif 2017-10 Yes 1000U Take 1,000 Univers leno, 1-22 Units by ity of Vitamin D3, 00:13: [place] (VITAMIN 18 Medical D3) 1,000 Branch unit capsule aspirin 81 2017-10 Yes 81mg Take 81 mg U nivers mg EC 22 by mouth ity of tablet 00:13: daily. [address] Branch Magnesium 2017-10 Yes [facility] by [facility] Hydroxide - mouth. ity of 400 mg (170 00:13: [place] mg) [address] Branch DULoxetine 2017-10 Yes 60mg Take 60 mg U nivers (CYMBALTA) 22 by mouth ity o f 60 mg 00:13: daily. [place] capsule Medical Branch B 2017-10 Yes Take by Univers INFANTIS/B -22 mouth. ity of ANI/B KARUNA/B 00:13: [place] BIFID Medical (PROBIOTIC Branch 4X ORAL) ranitidine 2017-10 Yes 150mg Take 150 Un jacinta (ZANTAC) 1-22 mg by ity of 150 mg 00:13: mouth 2 [place] tablet 18 (two) Medical times Branch daily. SELENIUM 2017-10 Yes Take by Unive rs ORAL -22 mouth. ity of 00:13: [address] Branch clopidogrel 2017-10 Yes 75mg Take 75 mg Univers 75 mg -22 by mouth ity of tablet 00:13: daily. [address] Branch Cholecalcif 2017-10 Yes 1000U Take 1,000 Univers leno, 1-22 Units by ity of Vitamin D3, 00:13: mouth. [place] (VITAMIN 18 Medical D3) 1,000 Branch unit capsule aspirin 81 2017-10 Yes 81mg Take 81 mg U nivers mg EC -22 by mouth ity of tablet 00:13: daily. [place] [address] Medical Branch Magnesium 2017-10 Yes [facility] Hydroxide - mouth. ity of 400 mg (170 00:13: [place] mg) Chew [address] [place] [address] Branch DULoxetine 2017-10 Yes 60mg Take 60 mg U nivers (CYMBALTA) -22 by mouth ity o f 60 mg 00:13: daily. [place] capsule Medical Branch B 2017-10 Yes Take by [facility] INFANTIS/B - mouth. ity of ANI/B KARUNA/B 00:13: [place] BIFID 18 Medical (PROBIOTIC Branch 4X ORAL) ranitidine 2017-10 Yes 150mg Take 150 Un jacinta (ZANTAC) 1-22 mg by ity of 150 mg 00:13: mouth 2 [place] tablet 18 (two) Medical times [place] daily. SELENIUM 2017-10 [facility] mouth. ity of 00:13: [address] Branch clopidogrel 2017-10 Yes 75mg Take 75 mg Univers 75 mg 11-14 by mouth ity of tablet 00:13: daily. [address] Branch Cholecalcif 2017-10 Yes 1000U Take 1,000 Univers leno, -22 Units by ity of Vitamin D3, 00:13: mouth. [place] (VITAMIN [address] [place] [address] D3) 1,000 Branch unit capsule aspirin 81 2017-10 Yes 81mg Take 81 mg U nivers mg EC -22 by mouth ity of tablet 00:13: daily. [address] Branch Magnesium 2017-10 Yes Take by [facility] ers Hydroxide - mouth. ity of 400 mg (170 00:13: [place] mg) Chew [address] [place] [address] Branch DULoxetine 2017-10 Yes 60mg Take 60 mg U nivers (CYMBALTA) -22 by mouth ity o f 60 mg 00:13: daily. [place] capsule Medical Branch B 2017-10 Yes Take by [facility] INFANTIS/B -22 mouth. ity of ANI/B KARUNA/B 00:13: [place] BIFID 18 Medical (PROBIOTIC Branch 4X ORAL) ranitidine 2017-10 Yes 150mg Take 150 Un jacinta (ZANTAC) 1-22 mg by ity of 150 mg 00:13: mouth 2 [place] tablet 18 (two) Medical times Branch daily. SELENIUM 2017-10 Yes Take by Unive rs ORAL 1-22 mouth. ity of 00:13: [place] [address] Medical Branch clopidogrel 2017-10 Yes 75mg Take 75 mg Univers 75 mg -22 by mouth ity of tablet 00:13: daily. [place] [address] Medical Branch Cholecalcif 2017-10 Yes 1000U Take 1,000 Univers leno, 1-22 Units by ity of Vitamin D3, 00:13: [place]. [place] (VITAMIN 18 Medical D3) 1,000 Branch unit capsule aspirin 81 2017-10 Yes 81mg Take 81 mg U nivers mg EC -22 by mouth ity of tablet 00:13: daily. [place] [address] Medical Branch Magnesium 2017-10 Yes Take by Univ ers Hydroxide -22 mouth. ity of 400 mg (170 00:13: [place] mg) Chew Medical Branch DULoxetine 2017-10 Yes 60mg Take 60 mg U nivers (CYMBALTA) -22 by mouth ity o f 60 mg 00:13: daily. [place] [address] Medical Branch B 2017-10 Yes Take by Univers INFANTIS/B -22 mouth. ity of ANI/B KARUNA/B 00:13: [place] BIFID 18 Medical (PROBIOTIC Branch 4X ORAL) ranitidine 2017-10 Yes 150mg Take 150 Un jacinta (ZANTAC) 1-22 mg by ity of 150 mg 00:13: mouth 2 [place] tablet 18 (two) Medical times Branch daily. SELENIUM 2017-10 Yes Take by Unive rs ORAL -22 mouth. ity of 00:13: [place] [address] Medical Branch clopidogrel 2017-10 Yes 75mg Take 75 mg Univers 75 mg -22 by mouth ity of tablet 00:13: daily. [place] [address] Medical Branch Cholecalcif 2017-10 Yes 1000U Take 1,000 Univers leno, 1-22 Units by ity of Vitamin D3, 00:13: [place]. [place] (VITAMIN 18 Medical D3) 1,000 Branch unit capsule aspirin 81 2017-10 Yes 81mg Take 81 mg U nivers mg EC -22 by mouth ity of tablet 00:13: daily. [place] [address] Medical Branch Magnesium 2017-10 Yes Take by Univ ers Hydroxide -22 mouth. ity of 400 mg (170 00:13: [place] mg) Chew Medical Branch DULoxetine 2017-10 Yes 60mg Take 60 mg U nivers (CYMBALTA) 11-14 by mouth ity o f 60 mg 00:13: daily. [place] capsule 18 Medical Branch B 2017-10 Yes Take by Univers INFANTIS/B - mouth. ity of ANI/B KARUNA/B 00:13: [place] BIFID 18 Medical (PROBIOTIC Branch 4X ORAL) ranitidine 2017-10 Yes 150mg Take 150 Un jacinta (ZANTAC) 1-22 mg by ity of 150 mg 00:13: mouth 2 [place] tablet 18 (two) Medical times Branch daily. SELENIUM 2017-10 Yes Take by Unive rs ORAL -22 mouth. ity of 00:13: [address] Branch clopidogrel 2017-10 Yes 75mg Take 75 mg Univers 75 mg -22 by mouth ity of tablet 00:13: daily. [address] Branch Cholecalcif 2017-10 Yes 1000U Take 1,000 Univers leno, 1-22 Units by ity of Vitamin D3, 00:13: mouth. [place] (VITAMIN Medical D3) 1,000 Branch unit capsule aspirin 81 2017-10 Yes 81mg Take 81 mg U nivers mg EC 11-14 by mouth ity of tablet 00:13: daily. [address] Branch Magnesium 2017-10 Yes Take by Univ ers Hydroxide 11-14 mouth. ity of 400 mg (170 00:13: [place] mg) [address] Branch DULoxetine 2017-10 Yes 60mg Take 60 mg U nivers (CYMBALTA) 11-14 by mouth ity o f 60 mg 00:13: daily. [place] capsule Medical Branch B 2017-10 Yes Take by Univers INFANTIS/B - mouth. ity of ANI/B KARUNA/B 00:13: [place] BIFID 18 Medical (PROBIOTIC Branch 4X ORAL) ranitidine 2017-10 Yes 150mg Take 150 Un jacinta (ZANTAC) 1-22 mg by ity of 150 mg 00:13: mouth 2 [place] tablet 18 (two) Medical times Branch daily. SELENIUM 2017-10 Yes Take by Unive rs ORAL - mouth. ity of 00:13: [address] Branch clopidogrel 2017-10 Yes 75mg Take 75 mg Univers 75 mg -22 by mouth ity of tablet 00:13: daily. [address] Branch Cholecalcif 2017-10 Yes 1000U Take 1,000 Univers leno, 1-22 Units by ity of Vitamin D3, 00:13: [place]. [place] (VITAMIN 18 Medical D3) 1,000 Branch unit capsule aspirin 81 2017-10 Yes 81mg Take 81 mg U nivers mg EC 11-14 by mouth ity of tablet 00:13: daily. [place] [address] Medical Branch Magnesium 2017-10 Yes Take by Univ ers Hydroxide 22 mouth. ity of 400 mg (170 00:13: [place] mg) [place] [address] Medical Branch DULoxetine 2017-10 Yes 60mg Take 60 mg U nivers (CYMBALTA) 22 by mouth ity o f 60 mg 00:13: daily. [place] capsule Medical Branch B 2017-10 Yes Take by Univers INFANTIS/B 11-14 mouth. ity of ANI/B KARUNA/B 00:13: [place] BIFID 18 Medical (PROBIOTIC Branch 4X ORAL) ranitidine 2017-10 Yes 150mg Take 150 Un j[place]inta (ZANTAC) 1-22 mg by ity of 150 mg 00:13: mouth 2 [place] tablet 18 (two) Medical times Branch daily. SELENIUM 2017-10 Yes Take by Unive rs ORAL 22 mouth. ity of 00:13: [address] Branch DULoxetine 2017-10 Yes 60mg Take 60 mg U nivers (CYMBALTA) 11-13 by mouth ity o f 60 mg 18:13: daily. [place] capsule 18 Medical Branch B 2017-10 Yes Take by Univers INFANTIS/B -21 mouth. ity of ANI/B KARUNA/B 18:13: [place] BIFID 18 Medical (PROBIOTIC Branch 4X ORAL) ranitidine 2017-10 Yes 150mg Take 150 Un [place] (ZANTAC) 1-21 mg by ity of 150 mg 18:13: mouth 2 [place] tablet 18 (two) Medical times Branch daily. SELENIUM 2017-10 Yes Take by Unive rs ORAL -21 mouth. ity of 18:13: [address] Branch clopidogrel 2017-10 Yes 75mg Take 75 mg Univers 75 mg -21 by mouth ity of tablet 18:13: daily. [address] Branch Cholecalcif 2017-10 Yes 1000U Take 1,000 Univers leno, 1-21 Units by ity of Vitamin D3, 18:13: [place]. [place] (VITAMIN 18 Medical D3) 1,000 Branch unit capsule aspirin 81 2017-10 Yes 81mg Take 81 mg U nivers mg EC 1-21 by mouth ity of tablet 18:13: daily. [place] [address] Medical Branch Magnesium 2017-10 Yes [facility] ers Hydroxide 1-21 mouth. ity of 400 mg (170 18:13: [place] mg) Chew Medical Branch DULoxetine 2017-10 Yes 60mg Take 60 mg U nivers (CYMBALTA) 1-21 by mouth ity o f 60 mg 18:13: daily. [place] capsule Medical Branch B 2017-10 Yes Take by Univers INFANTIS/B 1-21 mouth. ity of ANI/B KARUNA/B 18:13: [place] BIFID 18 Medical (PROBIOTIC Branch 4X ORAL) ranitidine 2017-10 Yes 150mg Take 150 Un j[place]inta (ZANTAC) 1-21 mg by ity of 150 mg 18:13: mouth 2 [place] tablet 18 (two) Medical times Branch daily. SELENIUM 2017-10 [facility]-21 mouth. ity of 18:13: [address] Branch clopidogrel 2017-10 Yes 75mg Take 75 mg Univers 75 mg 1-21 by mouth ity of tablet 18:13: daily. [address] Branch Cholecalcif 2017-10 Yes 1000U Take 1,000 Univers leno, 1-21 Units by ity of Vitamin D3, 18:13: mouth. [place] [facility] Medical D3) 1,000 Branch unit capsule aspirin 81 2017-10 Yes 81mg Take 81 mg U nivers mg EC 1-21 by mouth ity of tablet 18:13: daily. [address] Branch Magnesium 2017-10 Yes [facility] by [facility] ers Hydroxide 1-21 mouth. ity of 400 mg (170 18:13: [place] mg) Chew Medical Branch HYDROcodone 2017-10 Yes 1{tbl} Take 1 Un jacinta -acetaminop 1-21 tablet by ity of hen 5-325 00:00: mouth [place] mg tablet 00 every 6 Medical (six) Branch hours as needed for Pain (scale 4-6) or Pain (scale 7-10). HYDROcodone 2017-10 Yes 1{tbl} Take 1 Un jac[place] -acetaminop 1-21 tablet by ity of hen 5-325 00:00: mouth [place] mg tablet 00 every 6 Medical (six) Branch hours as needed for Pain (scale 4-6) or Pain (scale 7-10). HYDROcodone 2017-10 Yes 1{tbl} Take 1 Un jac[place] -acetaminop 1-21 tablet by ity of hen 5-325 00:00: mouth [place] mg tablet 00 every 6 Medical (six) Branch hours as needed for Pain (scale 4-6) or Pain (scale 7-10). HYDROcodone 2017-10 Yes 1{tbl} Take 1 Un [place] -acetaminop 1-21 tablet by ity of hen 5-325 00:00: mouth [place] mg tablet 00 every 6 Medical (six) Branch hours as needed for Pain (scale 4-6) or Pain (scale 7-10). HYDROcodone 2017-10 Yes 1{tbl} Take 1 Un [place] -acetaminop 1-21 tablet by ity of hen 5-325 00:00: mouth [place] mg tablet 00 every 6 Medical (six) Branch hours as needed for Pain (scale 4-6) or Pain (scale 7-10). HYDROcodone 2017-10 Yes 1{tbl} Take 1 Un [place] -acetaminop 1-21 tablet by ity of hen 5-325 00:00: mouth [place] mg tablet 00 every 6 Medical (six) Branch hours as needed for Pain (scale 4-6) or Pain (scale 7-10). HYDROcodone 2017-10 Yes 1{tbl} Take 1 Un [place] -acetaminop 1-21 tablet by ity of hen 5-325 00:00: mouth [place] mg tablet 00 every 6 Medical (six) Branch hours as needed for Pain (scale 4-6) or Pain (scale 7-10). HYDROcodone 2017-10 Yes 1{tbl} Take 1 Un jacinta -acetaminop 1-21 tablet by ity of hen 5-325 00:00: mouth [place] mg tablet 00 every 6 Medical (six) Branch hours as needed for Pain (scale 4-6) or Pain (scale 7-10). HYDROcodone 2017-10 Yes 1{tbl} Take 1 Un jacinta -acetaminop 1-21 tablet by ity of hen 5-325 00:00: mouth [place] mg tablet 00 every 6 Medical (six) Branch hours as needed for Pain (scale 4-6) or Pain (scale 7-10). PROAIR HFA 2016-0 Yes Univers 90 5-27 ity of mcg/actuati 00:00: [place] on inhaler 00 Medical Branch PROAIR HFA 0 Yes Univers 90 5-27 ity of mcg/actuati 00:00: [place] on inhaler Medical Branch PROAIR HFA 0 Yes Univers 90 5-27 ity of mcg/actuati 00:00: [place] on inhaler Medical Branch PROAIR HFA 0 Yes Univers 90 5-27 ity of mcg/actuati 00:00: [place] on inhaler Medical Branch PROAIR HFA 0 Yes Univers 90 5-27 ity of mcg/actuati 00:00: [place] on inhaler Medical Branch PROAIR HFA 0 Yes Univers 90 5-27 ity of mcg/actuati 00:00: [place] on inhaler Medical Branch PROAIR HFA 0 Yes Univers 90 5-27 ity of mcg/actuati 00:00: [place] on inhaler Medical Branch PROAIR HFA 0 Yes Univers 90 5-27 ity of mcg/actuati 00:00: [place] on inhaler Medical Branch PROAIR HFA 0 Yes Univers 90 5-27 ity of mcg/actuati 00:00: [place] on inhaler Medical Branch HYDROcodone Yes Univer s -acetaminop 5-24 ity of hen (NORCO 00:00: [place] 5) 5-325 mg 00 Medical tablet Branch HYDROcodone Yes Univer s -acetaminop 5-24 ity of hen (NORCO 00:00: [place] 5) 5-325 mg 00 Medical tablet Branch HYDROcodone Yes Univer s -acetaminop 5-24 ity of hen (NORCO 00:00: [place] 5) 5-325 mg 00 Medical tablet Branch HYDROcodone Yes Univer s -acetaminop 5-24 ity of hen (NORCO 00:00: [place] 5) 5-325 mg 00 Medical tablet Branch HYDROcodone 0 Yes Univer s -acetaminop 5-24 ity of hen (NORCO 00:00: [place] 5) 5-325 mg 00 Medical tablet Branch HYDROcodone 0 Yes Univer s -acetaminop 5-24 ity of hen (NORCO 00:00: [place] 5) 5-325 mg 00 Medical tablet Branch HYDROcodone 0 Yes Univer s -acetaminop 5-24 ity of hen (NORCO 00:00: [place] 5) 5-325 mg 00 Medical tablet Branch HYDROcodone 2016-0 Yes Univer s -acetaminop 5-24 ity of hen (NORCO 00:00: [place] 5) 5-325 mg 00 Medical tablet Branch HYDROcodone 2016-0 Yes Univer s -acetaminop 5-24 ity of hen (NORCO 00:00: [place] 5) 5-325 mg 00 Medical tablet Branch montelukast 20160 Yes Univer s (SINGULAIR) 5-10 ity of 10 mg 00:00: [place] tablet [facility] Univer s (SINGULAIR) 5-10 ity of 10 mg 00:00: [place] tablet 00 [facility] 2016-[facility] Yes Univer s (SINGULAIR) 5-10 ity of 10 mg 00:00: [place] tablet 00 [facility] 2016-0 Yes Univer s (SINGULAIR) 5-10 ity of 10 mg 00:00: [place] tablet 00 [facility] 2016-0 Yes Univer s (SINGULAIR) 5-10 ity of 10 mg 00:00: [place] tablet 00 [facility] 2016-0 Yes Univer s (SINGULAIR) 5-10 ity of 10 mg 00:00: [place] tablet 00 [facility] 2016-[facility] Yes Univer s (SINGULAIR) 5-10 ity of 10 mg 00:00: [place] tablet 00 [facility] 2016-[facility] Yes Univer s (SINGULAIR) 5-10 ity of 10 mg 00:00: [place] tablet [facility] Univer s (SINGULAIR) 5-10 ity of 10 mg 00:00: [place] tablet 00 Medical Branch cyanocobala 2015-0 Yes Univer s min 5-09 ity of (VITAMIN 00:00: [place] B12) 1,000 00 Medical mcg/mL Branch injection cyanocobala 0 Yes Univer s min 5-09 ity of (VITAMIN 00:00: [place] B12) 1,000 00 Medical mcg/mL Branch injection cyanocobala 2015-0 Yes Univer s min 5-09 ity of (VITAMIN 00:00: [place] B12) 1,000 00 Medical mcg/mL Branch injection cyanocobala 2015-0 Yes Univer s min 5-09 ity of (VITAMIN 00:00: [place] B12) 1,000 00 Medical mcg/mL Branch injection cyanocobala 2015-0 Yes Univer s min 5-09 ity of (VITAMIN 00:00: [place] B12) 1,000 00 Medical mcg/mL Branch injection cyanocobala 2015-0 Yes Univer s min 5-09 ity of (VITAMIN 00:00: [place] B12) 1,000 00 Medical mcg/mL Branch injection cyanocobala 2015-0 Yes Univer s min 5-09 ity of (VITAMIN 00:00: [place] B12) 1,000 00 Medical mcg/mL Branch injection cyanocobala 2015-0 Yes Univer s min 5-09 ity of (VITAMIN 00:00: [place] B12) 1,000 00 Medical mcg/mL Branch injection cyanocobala 2015-0 Yes Univer s min 5-09 ity of (VITAMIN 00:00: [place] B12) 1,000 00 Medical mcg/mL Branch injection methscopola 0 Yes 5mg Take 5 mg U nivers mine 4-11 by mouth ity of (PAMINE 00:00: daily. [place] FORTE) 5 mg 00 Medical tablet Branch JANUVIA 100 0 Yes 100mg Take 100 U nivers mg tablet 4-11 mg by ity of 00:00: mouth [place] 00 daily. Medical Branch methscopola 2015-0 Yes 5mg Take 5 mg U nivers mine 4-11 by mouth ity of (PAMINE 00:00: daily. [place] FORTE) 5 mg 00 Medical tablet Branch JANUVIA 100 0 Yes 100mg Take 100 U nivers mg tablet 4-11 mg by ity of 00:00: mouth [place] 00 daily. Medical Branch methscopola 2016-0 Yes 5mg Take 5 mg U nivers mine 4-11 by mouth ity of (PAMINE 00:00: daily. [place] FORTE) 5 mg 00 Medical tablet Branch JANUVIA 100 0 Yes 100mg Take 100 U nivers mg tablet 4-11 mg by ity of 00:00: mouth [place] 00 daily. Medical Branch methscopola 2016-0 Yes 5mg Take 5 mg U nivers mine 4-11 by mouth ity of (PAMINE 00:00: daily. [place] FORTE) 5 mg 00 Medical tablet Branch HUGOUVIA 100 Yes 100mg Take 100 U nivers mg tablet 4-11 mg by ity of 00:00: mouth [place] 00 daily. Medical Branch methscopola 0 Yes 5mg Take 5 mg U nivers mine 4-11 by mouth ity of (PAMINE 00:00: daily. [place] FORTE) 5 mg 00 Medical tablet Branch methscopola Yes 5mg Take 5 mg U nivers mine 4-11 by mouth ity of (PAMINE 00:00: daily. [place] FORTE) 5 mg 00 Medical tablet Branch TEAGANIA 100 Yes 100mg Take 100 U nivers mg tablet 4-11 mg by ity of 00:00: mouth [place] 00 daily. Medical Branch TEAGANIA 100 Yes 100mg Take 100 U nivers mg tablet 4-11 mg by ity of 00:00: mouth [place] 00 daily. Medical Branch methscopola Yes 5mg Take 5 mg U nivers mine 4-11 by mouth ity of (PAMINE 00:00: daily. [place] FORTE) 5 mg 00 Medical tablet Branch SANKET 100 Yes 100mg Take 100 U nivers mg tablet 4-11 mg by ity of 00:00: mouth [place] 00 daily. Medical Branch methscopola Yes 5mg Take 5 mg U nivers mine 4-11 by mouth ity of (PAMINE 00:00: daily. [place] FORTE) 5 mg 00 Medical tablet Branch SANKET 100 Yes 100mg Take 100 U nivers mg tablet 4-11 mg by ity of 00:00: mouth [place] 00 daily. Medical Branch methscopola Yes 5mg Take 5 mg U nivers mine 4-11 by mouth ity of (PAMINE 00:00: daily. [place] FORTE) 5 mg 00 Medical tablet Branch TEAGANIA 100 Yes 100mg Take 100 U nivers mg tablet 4-11 mg by ity of 00:00: mouth [place] 00 daily. Medical Branch glipiZIDE Yes Univers XL 4-01 ity of (GLUCOTROL 00:00: [place] XL) 10 mg 00 Medical 24 hr Branch tablet metFORMIN Yes Univers (GLUCOPHAGE 4-01 ity of ) 1,000 mg 00:00: [place] tablet 00 Medical Branch omeprazole Yes Univers (PRILOSEC) 4-01 ity of 40 mg 00:00: [place] capsule 00 Medical Branch glipiZIDE Yes Univers XL 4-01 ity of (GLUCOTROL 00:00: [place] XL) 10 mg 00 Medical 24 hr Branch tablet metFORMIN Yes Univers (GLUCOPHAGE 4- ity of ) 1,000 mg 00:00: [place] tablet 00 Medical Branch omeprazole Yes Univers (PRILOSEC) 4-01 ity of 40 mg 00:00: [place] capsule 00 Medical Branch glipiZIDE Yes Univers XL 4-01 ity of (GLUCOTROL 00:00: [place] XL) 10 mg 00 Medical 24 hr Branch tablet metFORMIN Yes Univers (GLUCOPHAGE 4- ity of ) 1,000 mg 00:00: [place] tablet 00 Medical Branch glipiZIDE Yes Univers XL 4-01 ity of (GLUCOTROL 00:00: [place] XL) 10 mg 00 Medical 24 hr Branch tablet omeprazole Yes Univers (PRILOSEC) 4-01 ity of 40 mg 00:00: [place] capsule 00 Medical Branch glipiZIDE Yes Univers XL 4-01 ity of (GLUCOTROL 00:00: [place] XL) 10 mg 00 Medical 24 hr Branch tablet metFORMIN Yes Univers (GLUCOPHAGE 4- ity of ) 1,000 mg 00:00: [place] tablet 00 Medical Branch metFORMIN Yes Univers (GLUCOPHAGE 4- ity of ) 1,000 mg 00:00: [place] tablet 00 Medical Branch omeprazole Yes Univers (PRILOSEC) 4-01 ity of 40 mg 00:00: [place] capsule 00 Medical Branch omeprazole Yes Univers (PRILOSEC) 4-01 ity of 40 mg 00:00: [place] capsule 00 Medical Branch glipiZIDE Yes Univers XL 4-01 ity of (GLUCOTROL 00:00: [place] XL) 10 mg 00 Medical 24 hr Branch tablet metFORMIN Yes Univers (GLUCOPHAGE 4-01 ity of ) 1,000 mg 00:00: [place] tablet 00 Medical Branch omeprazole Yes Univers (PRILOSEC) 4-01 ity of 40 mg 00:00: [place] capsule 00 Medical Branch glipiZIDE Yes Univers XL 4-01 ity of (GLUCOTROL 00:00: [place] XL) 10 mg 00 Medical 24 hr Branch tablet metFORMIN Yes Univers (GLUCOPHAGE 4-01 ity of ) 1,000 mg 00:00: [place] tablet 00 Medical Branch omeprazole Yes Univers (PRILOSEC) 4- ity of 40 mg 00:00: [place] capsule 00 Medical Branch glipiZIDE Yes Univers XL 4- ity of (GLUCOTROL 00:00: [place] XL) 10 mg 00 Medical 24 hr Branch tablet metFORMIN Yes Univers (GLUCOPHAGE 4- ity of ) 1,000 mg 00:00: [place] tablet 00 Medical Branch omeprazole Yes Univers (PRILOSEC) 4 ity of 40 mg 00:00: [place] capsule 00 Medical Branch glipiZIDE Yes Univers XL 01-22 ity of (GLUCOTROL 00:00: [place] XL) 10 mg 00 Medical 24 hr Branch tablet metFORMIN Yes Univers (GLUCOPHAGE 4- ity of ) 1,000 mg 00:00: [place] tablet 00 Medical Branch omeprazole Yes Univers (PRILOSEC) 4 ity of 40 mg 00:00: [place] [facility] Vital Signs Vital Name Observation Time Observation Value Comments Source Systolic blood 2021-07-28 02:18:00 137 mm[Hg] Univer sity of pressure [facility] Diastolic blood 2021-07-28 02:18:00 101 mm[Hg] Unive rsity of pressure [facility] Heart rate 2021-07-28 02:18:00 114 /min [facility] Body temperature 2021-07-28 02:18:00 36.83 [place] [facility] Respiratory rate 2021-07-28 02:18:00 20 /min [facility] Body weight 2021-07-28 02:18:00 54.432 kg [facility] BMI 2021-07-28 02:18:00 20.60 kg/m2 [facility] Oxygen saturation in 2021-07-28 02:18:00 100 /min [facility] Arterial blood by [facility] Pulse oximetry Branch Procedures Procedure Date / Time Performing Clinician Source Performed ED SPLINT APPLICATION 2021-07-28 04:01:28 Sobia Benitez [facility] XR WRIST 3+ VW LEFT 2021-07-28 02:47:37 Sobia Benitez [facility] [place] NOTICE OF PRIVACY 2021-07-28 02:12:55 Doctor Unassigned, [facility] PRACTICES [facility] CONSENT/REFUSAL FOR 2021-07-28 02:11:02 Doctor Unassjudi, [facility] DIAGNOSIS AND TREATMENT [facility] DEXA SELF-REFERRED AXIAL 2020-06-12 16:32:24 Mahin Gonzalez [facility] (HIP AND SPINE) [facility] NO SHOW OR MISSED 2020-06-12 15:28:40 Doctor Maribeth, [facility] APPOINTMENT POLICY [facility] [place] [facility] ACKNOWLEDGEMENT [facility] PATIENT FINANCIAL 2020-06-12 15:28:13 Doctor Unawallace, [facility] POLICY [facility] NOTICE OF BILLING 2020-06-12 15:27:48 Doctor Maribeth, [facility] PRACTICES FOR MEDICARE [facility] ranch PATIENTS NOTICE OF PRIVACY 2020-06-12 15:27:26 Doctor Unawallace, [facility] CONSENT/REFUSAL FOR 2020-06-12 15:27:12 Doctor Maribeth, [facility] DIAGNOSIS AND TREATMENT [facility] ASSIGNMENT OF BENEFITS 2020-06-12 15:26:57 Doctor Maribeth, [facility] XR HAND 3+ VW RIGHT 2019-06-13 22:51:47 Chevy Bridges [facility] [place] XR FINGERS 2 VW LEFT 2019-06-13 22:37:09 Chevy Bridges [facility] Branch XR FINGERS 2 VW RIGHT 2019-06-13 22:36:58 Chevy Bridges [facility] XR KNEE 3 VW RIGHT 2019-06-13 22:35:46 Chevy Bridges [facility] Branch XR HAND 3+ VW LEFT 2019-06-13 22:35:35 Chevy Bridges [facility] NOTICE OF PRIVACY 2019-06-13 21:46:43 Doctor Maribeth, [facility] [place] PRACTICES [facility] CONSENT/REFUSAL FOR 2019-06-13 21:45:54 Doctor Maribeth, Naldo [facility] DIAGNOSIS AND TREATMENT [facility] ASSIGNMENT OF BENEFITS 2019-06-13 21:45:39 Doctor Kittyssjudi[facility] Encounters Start End Encounter Admission Attending Care Care Encounter Source Date/Time Date/Time Type Type Clinicians Facility Department ID 2021-08-[address] [facility] [id number] [facility] 03:52:11 ity of [facility] 2021-07-27 2021-07-27 Emergency [facility] [id number] Univers 21:23:00 22:50:00 Sobia Hall [id number] i [id number] [id number] [facility] 084 Branch 2021-07-27 2021-07-27 Orders Doctor EASTMAN [id number] Univers 00:00:00 00:00:00 Only Unassigned, KRYSTINA [id number] ity of [place] [facility] [id number] Adryan as [id number] [facility] 009 Branch 2021-01-13 2021-01-13 [facility] [id number] Univers 00:00:00 00:00:00 Outreach Lemuel PRIMARY [id number] i ty of [facility] [id number] [id number] In dical 388 Branch 2021-01-13 2021-01-13 [facility] [id number] 00:00:00 00:00:00 Outreach Lemuel PRIMARY [id number] Tomi CARE [id number] PAVILLION [id number] 2020-08-27 2020-08-27 Outpatient Raju_P MMG MMG [id number] [place] 11:17:00 11:17:00 1104 Medical Group 2020-06-12 2020-06-12 [facility] [id number] Univers 11:00:00 23:59:00 Encounter Mahin Kan Rafael [id number] ity of [place] [id number] [facility] [id number] [facility] 800 Branch 2020-06-12 2020-06-12 [facility] [id number] 11:00:00 23:59:00 Encounter Mahin Omer Rafael [id number] [place] [id number] [place] [id number] 800 2020-06-12 2020-06-12 Outpatient [facility] [id number] Univers 11:00:00 11:00:00 MAHIN [id number] [facility] 2020-06-12 2020-06-12 Outpatient R [facility] [id number] Univers 00:00:00 00:00:00 MAHIN [facility] 2020-05-27 2020-05-27 Outpatient Raju_P MMG MMG [id number] [place] 05:00:00 05:00:00 0804 [facility] 2019-09-03 2019-09-03 Outpatient [facility] [id number] Univers 16:28:25 23:59:00 ANTIONETTE [facility] 2019-06-13 2019-06-13 [facility] [id number] Univers 16:45:08 23:59:00 Encounter Trev Hall [id number] ity [facility] [id number] [facility] [id number] [facility] 807 Branch 2019-06-13 2019-06-13 [facility] [id number] 16:45:08 23:59:00 Encounter Trev Hall [id number] [place] [id number] [place] [id number] 2019-06-13 2019-06-13 [facility] [id number] Univers 16:44:50 16:44:50 Encounter Trev [place] [id number] ity of [place] [id number] [facility] [id number] [address] 2019-06-13 2019-06-13 [facility] Chevy Bridges [facility] [id number] 16:44:50 16:44:50 Encounter Trev [place] [id number] [place] [id number] [place] [address] [id number] [facility] 2019-06-13 2019-06-13 [facility] [id number] 16:44:31 16:44:31 Encounter Trev [place] [id number] [place] [id number] [place] [address] [id number] [facility] 2019-06-13 2019-06-13 Outpatient R [facility] [id number] [facility] 16:44:31 16:44:31 [facility] 2019-06-13 2019-06-13 [facility] [id number] [facility] 16:44:31 16:44:31 Encounter Trev [place] [id number] ity of [place] [address].2.7.[address] [place] [id number] 2019-06-13 2019-06-13 [facility] Boris [facility] [id number] 16:44:16 16:44:16 Encounter Trev [place] [id number] [place] [id number] [place] [address] [id number] [facility] 2019-06-13 2019-06-13 [facility] 1.2.840.114 [id number] [facility] 16:44:16 16:44:16 Encounter Trev [place] [id number] ity [facility] 4.2.7.2.[address] [place] [id number] 2019-06-13 2019-06-13 [facility] [id number] 16:44:00 16:44:00 Encounter Trev [place] [id number] [place] [id number] [place] [id number] 2019-06-13 2019-06-13 [facility] Chevy Bridges [facility] [id number] [facility] 16:44:00 16:44:00 Encounter Trev Hall [id number] ity of [place] [id number] [facility] [id number] [facility] 807 Branch Results Test Description Test Time Test Comments Results Result Sourc e Comments DEXA 2020-05-25 Addendum by Kali Nicholson of SELF-REFERRED 0 MD [facility] Medical AXIAL (HIP AND 16:38:48 on 06/12/2020 11:52 B ranch SPINE) AM* * * * * * * * ADDENDUM: * * * * * * * *Please discard this follows initial reported values of lumbar spinesbecause that study included T12-L3 level rather than L1-L4. Corrected BMDvalues of the lumbar spines are as follows: LUMBAR SPINES:Average BMD value from L1 through L4 is 0.857 gm/sq cm, with T-score - 2.7.This is consistent with mild osteoporosis. HISTORY: Osteoporosis screening study. TECHNIQUE: Bone density estimation is done using DEXA scan, over the righthip and lumbar spines. FINDINGS: Details of the results are enclosed for your review. The summaryis as follows. RIGHT HIP:BMD value is 0.597 gm/sq cm, with T-score of - 3.3. Estimated BMD in theneck is 0.553 g/sq cm with T score of - 3.5. LUMBAR SPINES:Average BMD value from L1 through L4 is 0.776 gm/sq cm, with T-score -3.4. 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 ASSESSMENT: WHO-definitions: T-score normal: +/- 1 SD around the meanosteopenia: >1 to 2.4 SD below the meanosteoporosis: >2.5 SD below the meanFracture risk doubles for each 1.5 SD below the mean. [facility], Radiant Results Inft User - 06/12/2020 11:39 AM CDTHISTORY: Osteoporosis screening study.TECHNIQUE: Bone density estimation is done using DEXA scan, over the righthip and lumbar spines.FINDINGS: Details of the results are enclosed for your review. The summaryis as follows.RIGHT HIP:BMD value is 0.597 gm/sq cm, with T-score of - 3.3. 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 XR HAND 3+ VW 2019-05-25 No acute bony Univers ity of RIGHT 1 abnormality. I, [facility] 23:09:26 Sarah Cantu MD., have reviewed this study and agree with the abovereport.* * * * * * * * ORIGINAL REPORT * * * * * * * *EXAM: XR HAND 3+ VW RIGHT HISTORY: pain in hand COMPARISON: None. FINDINGS: Radiographs of the left hand demonstrate no acute fractures ordislocations. Joint spaces are preserved. Alignment is within normallimits. The soft tissues are unremarkable. [facility], Radiant Results Inft User - 06/13/2019 6:11 PM CDT* * * * * * * * ORIGINAL REPORT * * * * * * * *EXAM: XR HAND 3+ VW RIGHTHISTORY: pain in hand COMPARISON: None.FINDINGS: Radiographs of the left hand demonstrate no acute fractures ordislocations. Joint spaces are preserved. Alignment is within normallimits. The soft tissues are unremarkable.IMPRES SIONNo acute bony abnormality.I, Walter Mujica MD., have reviewed this study and agree with the abovereport. XR HAND 3+ VW 2019-05-25 No acute bony Univers ity of LEFT 1 abnormality is [place] [facility] 22:45:33 present. 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 EXAM: XR FINGERS 2 VW RIGHT, EXAM: XR FINGERS 2 VW LEFT, EXAM: XR HAND 3+ VW LEFT, EXAM: XR KNEE 3 VW RIGHT HISTORY: finger pain COMPARISON: None FINDINGS: Imaging of the left hand and left/right fingers demonstrates no erosions,subluxatio ns or acute fractures. Minimal joint space narrowing withmarginal osteophytosis is seen about the STT and thumb CMC joints. Imaging of the knee demonstrates maintenance of alignment. No fractures,erosions or subluxations are seen. No effusion is present. [facility], Radiant Results Inft User - 06/13/2019 5:47 PM CDTEXAM:XR FINGERS 2 VW RIGHT,EXAM:XR FINGERS 2 VW LEFT,EXAM:XR HAND 3+ VW LEFT,EXAM:XR KNEE 3 VW RIGHTHISTORY:finger pain COMPARISON:NoneFIND INGS: Imaging of the left hand and left/right fingers demonstrates no erosions,subluxatio ns or acute fractures. Minimal joint space narrowing withmarginal osteophytosis is seen about the STT and thumb CMC joints.Imaging of the knee demonstrates maintenance of alignment. No fractures,erosions or subluxations are seen. No effusion is present.IMPRESSIONN o acute bony abnormality is present.Mild osteoarthrosis of the left wrist. XR KNEE 3 VW 2019-05-25 No acute bony Universi ty of RIGHT 1 abnormality is [place] [facility] 22:45:33 present. 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 EXAM: XR FINGERS 2 VW RIGHT, EXAM: XR FINGERS 2 VW LEFT, EXAM: XR HAND 3+ VW LEFT, EXAM: XR KNEE 3 VW RIGHT HISTORY: finger pain COMPARISON: None FINDINGS: Imaging of the left hand and left/right fingers demonstrates no erosions,subluxatio ns or acute fractures. Minimal joint space narrowing withmarginal osteophytosis is seen about the STT and thumb CMC joints. Imaging of the knee demonstrates maintenance of alignment. No fractures,erosions or subluxations are seen. No effusion is present. [facility], Radiant Results Inft User - 06/13/2019 5:47 PM CDTEXAM:XR FINGERS 2 VW RIGHT,EXAM:XR FINGERS 2 VW LEFT,EXAM:XR HAND 3+ VW LEFT,EXAM:XR KNEE 3 VW RIGHTHISTORY:finger pain COMPARISON:NoneFIND INGS: Imaging of the left hand and left/right fingers demonstrates no erosions,subluxatio ns or acute fractures. Minimal joint space narrowing withmarginal osteophytosis is seen about the STT and thumb CMC joints.Imaging of the knee demonstrates maintenance of alignment. No fractures,erosions or subluxations are seen. No effusion is present.IMPRESSIONN o acute bony abnormality is present.Mild osteoarthrosis of the left wrist. XR FINGERS 2 VW 2019-05-25 No acute bony Unive rsity of LEFT 1 abnormality is [place] [facility] 22:45:33 present. 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 EXAM: XR FINGERS 2 VW RIGHT, EXAM: XR FINGERS 2 VW LEFT, EXAM: XR HAND 3+ VW LEFT, EXAM: XR KNEE 3 VW RIGHT HISTORY: finger pain COMPARISON: None FINDINGS: Imaging of the left hand and left/right fingers demonstrates no erosions,subluxatio ns or acute fractures. Minimal joint space narrowing withmarginal osteophytosis is seen about the STT and thumb CMC joints. Imaging of the knee demonstrates maintenance of alignment. No fractures,erosions or subluxations are seen. No effusion is present. [facility], Radiant Results Inft User - 06/13/2019 5:47 PM CDTEXAM:XR FINGERS 2 VW RIGHT,EXAM:XR FINGERS 2 VW LEFT,EXAM:XR HAND 3+ VW LEFT,EXAM:XR KNEE 3 VW RIGHTHISTORY:finger pain COMPARISON:NoneFIND INGS: Imaging of the left hand and left/right fingers demonstrates no erosions,subluxatio ns or acute fractures. Minimal joint space narrowing withmarginal osteophytosis is seen about the STT and thumb CMC joints.Imaging of the knee demonstrates maintenance of alignment. No fractures,erosions or subluxations are seen. No effusion is present.IMPRESSIONN o acute bony abnormality is present.Mild osteoarthrosis of the left wrist. XR FINGERS 2 VW 2019-05-25 No acute bony Unive rsity of RIGHT 1 abnormality is [place] [facility] 22:45:33 present. 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 EXAM: XR FINGERS 2 VW RIGHT, EXAM: XR FINGERS 2 VW LEFT, EXAM: XR HAND 3+ VW LEFT, EXAM: XR KNEE 3 VW RIGHT HISTORY: finger pain COMPARISON: None FINDINGS: Imaging of the left hand and left/right fingers demonstrates no erosions,subluxatio ns or acute fractures. Minimal joint space narrowing withmarginal osteophytosis is seen about the STT and thumb CMC joints. Imaging of the knee demonstrates maintenance of alignment. No fractures,erosions or subluxations are seen. No effusion is present. [facility], Radiant Results Inft User - 06/13/2019 5:47 PM CDTEXAM:XR FINGERS 2 VW RIGHT,EXAM:XR FINGERS 2 VW LEFT,EXAM:XR HAND 3+ VW LEFT,EXAM:XR KNEE 3 VW RIGHTHISTORY:finger pain COMPARISON:NoneFIND INGS: Imaging of the left hand and left/right fingers demonstrates no erosions,subluxatio ns or acute fractures. Minimal joint space narrowing withmarginal osteophytosis is seen about the STT and thumb CMC joints.Imaging of the knee demonstrates maintenance of alignment. No fractures,erosions or subluxations are seen. No effusion is present.IMPRESSIONN o acute bony abnormality is present.Mild osteoarthrosis of the left wrist.
[2021-10-10] MEDS ORDERED: MORPHINE 4 MG/ML SYR ONE (23:26)
[2021-10-10] MEDS ORDERED: ONDANSETRON 4 MG (ODT) TAB ONE (23:26)
--- NOTE | 2021-10-11 01:32 | ER ---
Nurse's Notes [facility] Name: Sourav Higgins Age: 61 yrs Sex: Female : 1960 Arrival Date: 10/10/2021 Time: 22:02 Bed 6 Private MD: Chevy Escalante Diagnosis: Contusion of left hip;Strain of muscle, fascia and tendon of the posterior muscle group at thigh level, left thigh, initial encounter;Closed impacted fracture of the distal left radius and ulna;Closed acute mildly displaced left ulnar styloid process fracture Presentation: 10/10 22:53 Chief complaint: Patient states: she fell earlier in the day over a standing fan did bb not hit her head no LOC but she has pain to left hip and left arm which has worsened through the day pt has hx of bilateral hip fractures in the past and just got a cast off of her left arm 3 weeks ago after breaking both bones in her wrist. Coronavirus screen: At this time, the client does not indicate any symptoms associated with coronavirus-19. Ebola Screen: No symptoms or risks identified at this time. Initial Sepsis Screen: Does the patient meet any 2 criteria? No. Patient's initial sepsis screen is negative. Does the patient have a suspected source of infection? No. Patient's initial sepsis screen is negative. Risk Assessment: Do you want to hurt yourself or someone else? Patient reports no desire to harm self or others. Note pt states she also has a really bad headache. Onset of symptoms was October 10, 2021. 22:53 Method Of Arrival: Wheelchair bb 22:53 Acuity: ERIN 3 bb Historical: - Allergies: 22:55 Codeine; bb - Home Meds: 22:55 metformin 1,000 mg Oral tab 1 tab 2 times per day [Active]; gabapentin 300 mg oral cap bb 3 caps twice a day [Active]; omeprazole 40 mg Oral cpDR 1 cap once daily [Active]; duloxetine 60 mg oral CDRS 1 cap once daily [Active]; primadone 50 mg BID [Active]; hydrochlorothiazide 25 mg Oral tab 1 tab once daily [Active]; glipizide 10 mg Oral tab 1 tab once daily [Active]; clopidogrel 75 mg oral tab 1 tab once daily [Active]; montelukast 10 mg oral tab 1 tab once daily [Active]; simvastatin 10 mg Oral tab 1 tab once daily [Active]; levothyroxine 175 mcg cap 1 cap once daily [Active]; lorazepam 0.5 mg Oral tab 1 tab 3 times per day [Active]; hydrocodone-acetaminophen 10-325 mg Oral tab 1 tab every 6 hours [Active]; magnesium oxide 250 mg magnesium Oral tab twice a day [Active]; potassium 99 mg daily [Active]; biotin 1,000 mcg oral chew daily [Active]; D3 daily [Active]; albuterol inh 2 puffs Q 4 hours [Active]; - PMHx: 22:55 Asthma; COPD; CVA; 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 - Social history:: Smoking status: Patient reports the use of cigarette tobacco products. Screenin:37 Abuse screen: Denies threats or abuse. Denies injuries from another. Nutritional lp1 screening: No deficits noted. Tuberculosis screening: No symptoms or risk factors identified. Fall Risk Total Farris Fall Scale indicates High Risk Score (45 or more points). Fall prevention measures have been instituted. Side Rails Up X 2 Family Present and informed to notify staff if the need to leave the bedside As available patient and family educated on Fall Prevention Program and Strategies. Assessment: 23:30 General: Appears in no apparent distress. Behavior is appropriate for age. Pain: lp1 Complains of pain in left hip Pain currently is 6 out of 10 on a pain scale. Aggravated by weight bearing. Neuro: Level of Consciousness is awake, alert, obeys commands, Oriented to person, place, time, situation. Cardiovascular: Patient's skin is warm and dry. Respiratory: Respiratory effort is even, unlabored. GI: No signs and/or symptoms were reported involving the gastrointestinal system. : No signs and/or symptoms were reported regarding the genitourinary system. EENT: No signs and/or symptoms were reported regarding the EENT system. Derm: Skin is pink, warm \T\ dry. Musculoskeletal: Circulation, motion, and sensation intact. Reports pain in left hip. 23:37 Reassessment: radiology at bedside. lp1 10/11 00:20 Reassessment: Assisted patient with bedpan to void; linens changed as needed. lp1 00:40 Reassessment: Provider at bedside to discuss results with patient and daughter at lp1 bedside. 01:27 Reassessment: patient able to bear weight and ambulate with walker; has cane to use at lp1 home; Reports minimal pain to left medial groin area while ambulating. Vital Signs: 10/10 22:53 BP 147 / 79; Pulse 90; Resp 16 S; Temp 97.7(O); Pulse Ox 100% on R/A; Weight 58.97 kg bb (R); Height 5 ft. 3 in. (160.02 cm) (R); Pain 6/10; 10/11 01:27 BP 149 / 74; Pulse 86; Resp 18; Pulse Ox 98% on R/A; lp1 10/10 22:53 Body Mass Index 23.03 (58.97 kg, 160.02 cm) bb ED Course: 10/10 22:02 Patient arrived in ED. mr 22:03 Chevy Escalante is Private Physician. mr 22:55 Triage completed. bb 22:55 Arm band placed on Patient placed in an exam room, on a stretcher, on pulse oximetry. bb Family accompanied patient. 23:10 Bill Morales NP is PHCP. pm1 23:10 Chriss Gar MD is Attending Physician. pm1 23:11 Helena Tristan, AMAIRANI is Primary Nurse. lp1 23:37 Patient has correct armband on for positive identification. lp1 23:53 Wrist Left (3 View) XRAY In Process Unspecified. EDMS 23:53 Hip Left 2 View XRAY In Process Unspecified. EDMS 10/11 00:54 No provider procedures requiring assistance completed. Patient did not have IV access lp1 during this emergency room visit. 01:09 Orthoglass splint: Sugar tong splint applied on left arm. Sling applied to left arm. oe 01:29 Mahin Gonzalez MD is Referral Physician. pm1 Administered Medications: 10/10 23:29 Drug: Ondansetron 4 mg Route: PO; lp1 10/11 01:15 Follow up: Response: No adverse reaction lp1 10/10 23:34 Drug: morphine 4 mg Route: IM; Site: right deltoid; lp1 10/11 01:15 Follow up: Response: No adverse reaction; Pain is decreased lp1 Outcome: 01:32 Discharge ordered by MD. pm1 01:40 Discharged to home via wheelchair, with family. lp1 01:40 Condition: good 01:40 Discharge instructions given to patient, family, Instructed on discharge instructions, follow up and referral plans. Demonstrated understanding of instructions, follow-up care. 01:41 Patient left the ED. lp1 Signatures: Dispatcher [employer] Mia Cai mr Michela Tovar RN RN bb Helena Tristan RN RN lp1 Bill Morales, ACID LEVELER ACID LEVELER pm1 Socrates Hathaway
--- NOTE | 2021-10-11 01:33 | EDPHYS ---
Physician Documentation [facility] Name: Sourav Higgins Age: 61 yrs Sex: Female : 1960 Arrival Date: 10/10/2021 Time: 22:02 Bed 6 Private MD: Chevy Escalante ED Physician Chriss Gar HPI: 10/10 23:15 This 61 yrs old Female presents to ER via Wheelchair with complaints of Fall Injury, pm1 Hip Pain, Leg Pain, Arm Pain. 23:15 Details of fall: The patient fell from an upright position, while walking, and struck pm1 wood flroa. Onset: The symptoms/episode began/occurred today, at 13:00. Associated injuries: The patient sustained left wrist and left hip. Severity of symptoms: in the emergency department the symptoms are actually worse. The patient has been recently seen by a physician: with different complaint(s), Patient recently had cast from left wrist removed by Dr. Gonzalez for wrist fracture. Patient presents to the ER with complaints of swelling and pain to left wrist and left hip pain status post fall while trying to turn off fan in her room. Patient lost her balance and fell on her left side. No headache, head injury, LOC, or neck pain. Patient reports that she was able to walk to her bedside commode earlier today after falling but now reports that her hip pain is worse. Patient also had her left wrist cast removed by Dr. Gonzalez recently. Historical: - Allergies: 22:55 Codeine; bb - Home Meds: 22:55 metformin 1,000 mg Oral tab 1 tab 2 times per day [Active]; gabapentin 300 mg oral cap bb 3 caps twice a day [Active]; omeprazole 40 mg Oral cpDR 1 cap once daily [Active]; duloxetine 60 mg oral CDRS 1 cap once daily [Active]; primadone 50 mg BID [Active]; hydrochlorothiazide 25 mg Oral tab 1 tab once daily [Active]; glipizide 10 mg Oral tab 1 tab once daily [Active]; clopidogrel 75 mg oral tab 1 tab once daily [Active]; montelukast 10 mg oral tab 1 tab once daily [Active]; simvastatin 10 mg Oral tab 1 tab once daily [Active]; levothyroxine 175 mcg cap 1 cap once daily [Active]; lorazepam 0.5 mg Oral tab 1 tab 3 times per day [Active]; hydrocodone-acetaminophen 10-325 mg Oral tab 1 tab every 6 hours [Active]; magnesium oxide 250 mg magnesium Oral tab twice a day [Active]; potassium 99 mg daily [Active]; biotin 1,000 mcg oral chew daily [Active]; D3 daily [Active]; albuterol inh 2 puffs Q 4 hours [Active]; - PMHx: 22:55 Asthma; COPD; CVA; 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 - Social history:: Smoking status: Patient reports the use of cigarette tobacco products. ROS: 23:15 Constitutional: Negative for fever, chills, and weight loss, Cardiovascular: Negative pm1 for chest pain, palpitations, and edema, Respiratory: Negative for shortness of breath, cough, wheezing, and pleuritic chest pain. 23:15 Abdomen/GI: Negative for abdominal pain, nausea, vomiting, diarrhea, and constipation, Back: Negative for injury and pain. 23:15 Skin: Negative for injury, rash, and discoloration, Neuro: Negative for headache, weakness, numbness, tingling, and seizure. 23:15 MS/extremity: Positive for pain, swelling, of the left wrist, Pain and tenderness to left hamstring area, Negative for decreased range of motion, deformity. 23:15 All other systems are negative. Exam: 23:15 Constitutional: This is a well developed, well nourished patient who is awake, alert, pm1 and in no acute distress. Head/Face: Normocephalic, atraumatic. 23:15 Back: No spinal tenderness. No costovertebral tenderness. Full range of motion. Skin: Warm, dry with normal turgor. Normal color with no rashes, no lesions, and no evidence of cellulitis. 23:15 ENT: Exam is negative for acute changes, Mouth: no acute changes, Lips: normal, moist, Oral mucosa: normal, pink and intact, moist. 23:15 Chest/axilla: Exam negative for acute changes, Palpation: is normal, no crepitus, no tenderness. 23:15 Cardiovascular: Exam negative for acute changes, Rate: normal, Rhythm: regular, Pulses: no pulse deficits are appreciated, Edema: is not appreciated. 23:15 Respiratory: Exam negative for acute changes, respiratory distress, shortness of breath. 23:15 Abdomen/GI: Inspection: abdomen appears normal, Palpation: abdomen is soft and non-tender, in all quadrants. 23:15 Musculoskeletal/extremity: Extremities: grossly normal except: noted in the dorsal aspect of left wrist: swelling, tenderness, There is no evidence of decreased ROM, deformity, noted in the left hamstring: tenderness, no evidence of decreased ROM, deformity, shortening or rotation. Patient is able to actively bend her left hip and left knee actively and passively. 23:15 Neuro: Exam negative for acute changes, Orientation: is normal, Mentation: is normal, Motor: is normal, moves all fours. Vital Signs: 22:53 BP 147 / 79; Pulse 90; Resp 16 S; Temp 97.7(O); Pulse Ox 100% on R/A; Weight 58.97 kg bb (R); Height 5 ft. 3 in. (160.02 cm) (R); Pain 6/10; 10/11 01:27 BP 149 / 74; Pulse 86; Resp 18; Pulse Ox 98% on R/A; lp1 10/10 22:53 Body Mass Index 23.03 (58.97 kg, 160.02 cm) bb Procedures: 01:14 Splinting: Splint applied to left wrist using Orthoglass splint, applied by tech. pm1 Examined by me, post splint application: neurovascular intact, 2+ distal pulses palpable, brisk capillary refill noted, Patient tolerated well. MDM: 10/10 23:15 Patient medically screened. pm1 10/11 01:28 Data reviewed: vital signs. Data interpreted: Pulse oximetry: on room air is 98 %. pm1 Interpretation: normal. Counseling: I had a detailed discussion with the patient and/or guardian regarding: the historical points, exam findings, and any diagnostic results supporting the discharge/admit diagnosis, radiology results, the need for outpatient follow up, to return to the emergency department if symptoms worsen or persist or if there are any questions or concerns that arise at home, Patient able to ambulate in the ER with a walker. 10/10 23:16 Order name: Wrist Left (3 View) XRAY pm1 10/10 23:16 Order name: Hip Left 2 View XRAY pm1 10/11 00:12 Order name: Splint - Wrist; Complete Time: 01:15 pm1 10/11 01:02 Order name: Sling; Complete Time: 01:15 pm1 Administered Medications: 10/10 23:29 Drug: Ondansetron 4 mg Route: PO; lp1 10/11 01:15 Follow up: Response: No adverse reaction lp1 10/10 23:34 Drug: morphine 4 mg Route: IM; Site: right deltoid; lp1 10/11 01:15 Follow up: Response: No adverse reaction; Pain is decreased lp1 Disposition: 04:26 Co-signature as Attending Physician, Chriss Gar MD. [email or web address] Disposition Summary: 10/11/21 01:32 Discharge Ordered Location: Home pm1 Problem: new pm1 Symptoms: have improved pm1 Condition: Stable pm1 Diagnosis - Contusion of left hip pm1 - Strain of muscle, fascia and tendon of the posterior muscle group at thigh level, pm1 left thigh, initial encounter - Closed impacted fracture of the distal left radius and ulna pm1 - Closed acute mildly displaced left ulnar styloid process fracture pm1 Followup: pm1 - With: Emergency Department - When: As needed - Reason: Worsening of condition Followup: pm1 - With: Mahin Gonzalez MD - When: 2 - 3 days - Reason: Recheck today's complaints, Continuance of care, Re-evaluation by your physician Discharge Instructions: - Discharge Summary Sheet pm1 - Contusion pm1 - Cast or Splint Care, Adult pm1 - Hamstring Strain pm1 - Wrist Fracture Treated With Immobilization pm1 - Fall Prevention in the Home, Adult pm1 - How to Use a Sling pm1 Forms: - Medication Reconciliation Form pm1 - Thank You Letter pm1 - Antibiotic Education pm1 - Prescription Opioid Use pm1 Signatures: Dispatcher [employer] Michela Sandoval RN RN bb Helena Tristan RN RN lp1 Bill Morales, ELECTRIC DRILL OPERATOR ELECTRIC DRILL OPERATOR pm1 Chriss Gar MD MD mh7
[2021-10-11 01:46] VITALS: TEMP 97.7
[2021-10-11 01:49] VITALS: BP 149/74; O2SAT 98
--- NOTE | 2021-10-11 15:35 | RAD REPORT ---
EXAM DESCRIPTION: RAD - Wrist Left 3 View - 10/10/2021 11:53 pm CLINICAL HISTORY: PAIN. COMPARISON: None. TECHNIQUE: Three views of the left wrist were obtained: PA, oblique, and lateral radiographs. FINDINGS: Acute impacted fractures of the distal radius and ulna. There is also an acute mildly disp laced ulnar styloid process fracture. Osteopenia. No scapholunate interval widening. Ulnar positive v ariance by approximately 0.4 cm. Mild thumb CMC and triscaphe osteoarthrosis. IMPRESSION: 1. Acute impacted fractures of the distal radius and ulna. 2. Acute mildly displaced ulnar styloid process fracture. 3. Ulnar positive variance. Electronically signed by: Sarah Elder MD 10/11/2021 12:04 AM POLICE SHIFT COMMANDER Due to temporary technical issues with the PACS/Fluency reporting system, reports are being signed by the in house radiologists without review as a courtesy to insure prompt reporting. The interpreting radiologist is fully responsible for the content of the report.
--- NOTE | 2021-10-11 15:37 | RAD REPORT ---
EXAM DESCRIPTION: RAD - Hip Left 2 View - 10/10/2021 11:53 pm CLINICAL HISTORY: PAIN. COMPARISON: None. TECHNIQUE: Two views of the left hip: AP and frog-leg lateral radiographs. FINDINGS: Osteopenia. No acute osseous abnormality is identified. Hip joint alignment is maintained, with mild joint space narrowing and tiny marginal osteophytes. IMPRESSION: No acute osseous abnormality identified. Mild left hip osteoarthrosis. Osteopenia. Electronically signed by: Sarah Elder MD 10/11/2021 12:05 AM PROCESS SERVER Due to temporary technical issues with the PACS/Fluency reporting system, reports are being signed by the in house radiologists without review as a courtesy to insure prompt reporting. The interpreting radiologist is fully responsible for the content of the report.
== END 2021-10-11 01:41 | disposition home or self-care (01) ==
LOC: ER 21:57
PROC: 2W3DX1Z Immobilization of Left Lower Arm using Splint (ICD-10-PCS; principal; 2021-10-11)
DX: S52.502A Unspecified fracture of the lower end of left radius, initial encounter for closed fracture (principal); S52.612A Displaced fracture of left ulna styloid process, initial encounter for closed fracture; S76.312A Strain of muscle, fascia and tendon of the posterior muscle group at thigh level, left thigh, initial encounter; S70.02XA Contusion of left hip, initial encounter; W18.30XA Fall on same level, unspecified, initial encounter; Y93.01 Activity, walking, marching and hiking; Y92.003 Bedroom of unspecified non-institutional (private) residence as the place of occurrence of the external cause; Z72.0 Tobacco use; Z88.5 Allergy status to narcotic agent; I10 Essential (primary) hypertension; E11.9 Type 2 diabetes mellitus without complications
CPT/HCPCS: 96372; 99284

== ENCOUNTER 2022-03-19 09:21 | Day surgery (SDC) | payer OTHER ==
--- NOTE | 2022-03-16 09:12 | EKG ---
Test Date: 2022-03-15 Test Time: 10:37:03 Slubber Frame Changer: STEPHANIE MEASUREMENT RESULTS: Intervals: Rate: 91 KS: 190 QRSD: 78 QT: 386 QTc: 474 [place]: P: 33 KS: 190 QRS: -3 T: 86 INTERPRETIVE STATEMENTS: Normal sinus rhythm Inferior infarct, age undetermined Cannot rule out Anterior infarct, age undetermined Abnormal ECG No previous ECG available for comparison Electronically Signed On 03-16-22 09:08:24 CDT by Son Amezcua
[2022-03-19] MEDS: NA CHLORIDE 0.9% 1,000 ML ONE ×3 (09:51→11:29)
[2022-03-19] MEDS: OFLOXACIN OPH 0.3%-5 ML BTL ONE ×2 (10:42→11:45)
--- NOTE | 2022-03-19 11:53 | P.OP ---
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 Details of operation: The patient was brought to the operating room and placed under general anesthesia via inhalational mask. The left ear was visualized under the operating microscope with assistance of an ear speculum. Cerumen was removed from the canal using a wire curette. The ear canal was noted to be torturous. A myringotomy incision was made in the anterior-inferior quadrant and scant fluid was aspirated from the middle ear space. A [tiny T] tube was positioned across the incision using an alligator forcep and pick. A small abrasion on the anterior canal wall was created during placement of the tympanostomy tube. Bleeding was minimal and self resolved. [Ofloxacin drops were instilled into the middle ear and a cottonball was placed at the meatus.] Disposition the patient will be discharged home later today in the care of their family and follow-up with Dr. Butler's office in approximately 1 to 2 weeks.
[2022-03-19 13:47] VITALS: BP 132/63; TEMP 98.5; O2SAT 98
== END 2022-03-19 13:11 | disposition home or self-care (01) ==
LOC: OR 09:21
PROVIDERS: ATTEND Otolaryngology
PROC: 099670Z Drainage of Left Middle Ear with Drainage Device, Via Natural or Artificial Opening (ICD-10-PCS; principal; 2022-03-19 11:00)
DX: H65.492 Other chronic nonsuppurative otitis media, left ear (principal); H90.71 Mixed conductive and sensorineural hearing loss, unilateral, right ear, with unrestricted hearing on the contralateral side; H90.72 Mixed conductive and sensorineural hearing loss, unilateral, left ear, with unrestricted hearing on the contralateral side
CPT/HCPCS: 93005; 82947; 69436; J7030

== ENCOUNTER 2022-05-11 18:56 | Inpatient (IN) | payer OTHER ==
[2022-05-11 20:03] LABS: Absolute Lymphocytes (CBC) 2.5 K/uL (0.7-4.9); Hematocrit 25.9 % (36.0-45.0); Lymphocytes % 15.7 % (15.3-44.8); MCV 60.5 fL (80-100); RBC Red Blood Cell Count 4.27 M/uL (3.86-4.86)
--- NOTE | 2022-05-11 20:21 | RAD REPORT ---
EXAM DESCRIPTION: CT - CTHCSPWOC - 05/11/2022 8:07 pm CLINICAL HISTORY: Trauma, head and neck injury. fall, head injury, neck pain COMPARISON: No comparisons TECHNIQUE: Axial 5 mm thick images of the head were obtained. Axial 2 mm thick images of the cervical spine were obtained with sagittal and coronal reconstruction images generated and reviewed. All CT scans are performed using dose optimization technique as appropriate and may include automated exposure control or mA/KV adjustment according to patient size. FINDINGS: CT HEAD WITHOUT CONTRAST: No acute hemorrhage, hydrocephalus or extra-axial collection is identified.No areas of brain edema or midline shift. Chronic small vessel ischemic changes cerebral atrophy. The paranasal sinuses and mastoids are clear.The calvarium is intact. CT CERVICAL SPINE WITHOUT CONTRAST: No fracture or subluxation.No prevertebral soft tissues swelling is identified. Multilevel degenerati ve changes are present in the spine. IMPRESSION: No acute intracranial or cervical spine findings.
[2022-05-11 20:22] LABS: Potassium 3.3 mmol/L (3.5-5.1)
[2022-05-11] MEDS ORDERED: NA CHLORIDE 0.9% 1,000 ML ONE ×2 (20:31→22:35)
[2022-05-11 20:32] LABS: Protime INR 1.01
--- NOTE | 2022-05-11 20:33 | RAD REPORT ---
EXAM DESCRIPTION: RAD - Pelvis - 05/11/2022 8:18 pm CLINICAL HISTORY: BLUNT TRAUMA COMPARISON: Hip In Or dated 06/17/2020; Hip Right Wo Cont dated 06/16/2020 FINDINGS/IMPRESSION: Intramedullary lashanda and cephalomedullary screw in the right femur. No fracture o f either hip is identified. The left inferior pubic ramus is not well assessed which may be positiona l and due to overlapping anatomy. Difficult to exclude a fracture at this location, however. Correlat e with patient's mechanism of injury. Pelvic CT could better evaluate if clinically indicated.
[2022-05-11 20:35] LABS: Urine Blood Trace-intact (Negative); Urine Glucose Negative (Negative); Urine Protein 2+ (Negative); Urine Specific Gravity 1.015 (1.005-1.030)
--- NOTE | 2022-05-11 20:36 | RAD REPORT ---
EXAM DESCRIPTION: RAD - Chest Single View - 05/11/2022 8:18 pm CLINICAL HISTORY: BLUNT CHEST TRAUMA COMPARISON: Chest Pa And Lat (2 Views) dated 06/17/2021; Chest Single View dated 06/17/2020; Chest Pa And Lat (2 Views) dated 01/27/2017 FINDINGS: Lines: None. Lungs: No evidence of edema or pneumonia. Pleural: No significant pleural effusions or pneumothorax. Cardiac: The heart size is within normal limits. Bones: No acute fractures. Other: Probable hiatal hernia. IMPRESSION: No acute cardiopulmonary disease.
[2022-05-11 20:52] LABS: Urine Bacteria >50 /HPF (<20); Urine RBC <5 /HPF (None Seen)
[2022-05-11 21:32] LABS: Anisocytosis 1+; Blood Morphology Comment NOTED (NOT SEEN); Hypochromasia 2+; Platelet Estimate INCR; White Blood Cell Scan OK (OK)
[2022-05-11] MEDS ORDERED: ACETAMINOPHEN 325 MG TABLET ONE (21:59)
--- NOTE | 2022-05-11 22:04 | EDPHYS ---
Physician Documentation [facility] Name: Sourav Higgins Age: 62 yrs Sex: Female : 1960 Arrival Date: 05/11/2022 Time: 19:23 Bed 24 Private MD: ED Physician Efrain Valladares HPI: 05/11 19:46 This 62 yrs old Female presents to ER via Wheelchair with complaints of Dizziness, fall.rn 19:46 Details of fall: The patient fell from a supine position, out of bed. Onset: The rn symptoms/episode began/occurred today. Associated injuries: The patient sustained injury to the head, injury to the chest. Severity of symptoms: At their worst the symptoms were mild, in the emergency department the symptoms are unchanged. The patient has experienced a previous episode. The patient has been recently seen by a physician:. Daughter reports 2nd fall in last week, has been feeling weak all over, dizzy, today fell out of bed, thinks hit head, reports pain to back of head/neck. Also reports pain to both sides of ribs. No sob. Reports cough since hitting chest, no hemoptysis. Recent fall resulted in left supracondylar fracture, seen at [facility] for it, currently in splint, is going to f/u with ortho for that. Denies urinary symptoms. No fever. . 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 - Social history:: Smoking status: Patient reports the use of cigarette tobacco products, smokes one pack cigarettes per day. - Family history:: not pertinent. - Hospitalizations: : No recent hospitalization is reported. ROS: 19:46 Constitutional: Negative for fever, chills, and weight loss, Eyes: Negative for injury, rn pain, redness, and discharge, ENT: Negative for injury, pain, and discharge, Neck: + neck pain and injury Cardiovascular: Negative for palpitations, and edema, Respiratory: Negative for shortness of breath, cough, wheezing, and pleuritic chest pain, Abdomen/GI: Negative for abdominal pain, nausea, vomiting, diarrhea, and constipation, Back: Negative for injury and pain, : Negative for injury, bleeding, discharge, and swelling, MS/Extremity: Negative for injury and deformity, Skin: Negative for injury, rash, and discoloration, Neuro: Negative for weakness, numbness, tingling, and seizure. Exam: 19:46 Constitutional: This is a well developed, well nourished patient who is awake, alert, rn and in no acute distress. Head/Face: Normocephalic, atraumatic. Eyes: Pupils equal round and reactive to light, extra-ocular motions intact. ENT: dry MM Neck: No midline cervical tenderness Chest/axilla: Normal chest wall appearance and motion. No focal tenderness, + mild pain with deep inspiration. Cardiovascular: Tachycardic, regular Respiratory: No increased work of breathing, no retractions or nasal flaring. Abdomen/GI: Soft, non-tender Back: No spinal tenderness. No costovertebral tenderness. Full range of motion. Skin: Warm, dry with normal turgor. Normal color with no rashes, no lesions, and no evidence of cellulitis. MS/ Extremity: Pulses equal, no cyanosis. Neurovascular intact. FROM both lower extremities. LUE in splint Neuro: Awake and alert, GCS 15, oriented to person, place, time, and situation. Cranial nerves II-XII grossly intact. Motor strength 4/5 in all extremities. Sensory grossly intact. 20:30 ECG was reviewed by the Attending Physician. rn Vital Signs: 19:24 BP 148 / 88; Pulse 102; Resp 20; Temp 97.8; Pulse Ox 96% on R/A; Pain 8/10; hb 23:24 BP 138 / 86; Pulse 96; Resp 18 S; Pulse Ox 97% on R/A; lg3 MDM: 19:25 Patient medically screened. rn 22:02 Differential diagnosis: contusion, anemia, dehydration, UTI. Data reviewed: vital rn signs, nurses notes, lab test result(s), radiologic studies, CT scan, and as a result, I will admit patient. Counseling: I had a detailed discussion with the patient and/or guardian regarding: the historical points, exam findings, and any diagnostic results supporting the discharge/admit diagnosis, lab results, radiology results, the need for further work-up and treatment in the hospital. Response to treatment: the patient's symptoms have mildly improved after treatment, and as a result, I will admit patient. Admission orders: after a detailed discussion of the patient's condition and case, the admit orders are written by me. 05/11 19:35 Order name: CBC with Diff; Complete Time: 21:46 05/11 19:35 Order name: Basic Metabolic Panel; Complete Time: 20:38 rn 05/11 19:35 Order name: Urine Microscopic Only; Complete Time: 21:46 05/11 19:36 Order name: Protime (+inr); Complete Time: 20:38 05/11 19:36 Order name: Ptt, Activated; Complete Time: 20:38 05/11 19:46 Order name: SARS-COV-2 RT PCR (Document "Date of Onset" if Symptomatic); Complete Time: 21:46 05/11 20:35 Order name: Urine Dipstick-Ancillary; Complete Time: 20:38 [facility] 05/11 20:55 Order name: Urine Culture [facility] 05/11 21:33 Order name: CBC Smear Scan; Complete Time: 21:46 [facility] 05/11 22:08 Order name: BNP la1 05/11 22:08 Order name: Urine Osmolality la1 05/11 22:08 Order name: Osmolality, Serum la1 05/11 22:08 Order name: Urine Sodium Random la1 05/12 05:28 Order name: CBC with Automated Diff EDND 05/11 19:35 Order name: CT Head C Spine; Complete Time: 20:38 rn 05/11 19:35 Order name: XRAY Chest (1 view); Complete Time: 20:38 rn 05/11 19:35 Order name: EKG; Complete Time: 19:36 rn 05/11 19:36 Order name: XRAY Pelvis; Complete Time: 20:38 rn 05/12 05:36 Order name: CBC Smear Scan EDND 05/12 05:41 Order name: Comprehensive Metabolic Panel EDND 05/12 05:41 Order name: T4 Free EDND 05/12 05:41 Order name: Magnesium EDND 05/12 05:41 Order name: Thyroid Stimulating Hormone EDND 05/12 05:41 Order name: Transferrin Sat/Iron Binding EDND 05/12 05:41 Order name: Ferritin EDND 05/11 19:35 Order name: IV Start; Complete Time: 20:06 rn 05/11 19:35 Order name: Urine Dipstick-Ancillary (obtain specimen); Complete Time: 20:33 rn 05/11 19:35 Order name: EKG - Nurse/Tech; Complete Time: 20:32 rn EC:30 Rate is 92 beats/min. Rhythm is regular. QRS [place] is Normal. MA interval is normal. QRS rn interval is normal. QT interval is normal. No Q waves. T waves are Normal. No ST changes noted. Clinical impression: NSR w/ Non-specific ST/T Changes. Interpreted by me. Reviewed by me. Administered Medications: 20:33 Drug: NS 0.9% 1000 ml Route: IV; Rate: 1000 ml; Site: right forearm; lg3 23:01 Follow up: Response: No adverse reaction; IV Status: Infusion continued; IV Intake: lg3 1000ml 22:29 Not Given (Physician Discretion): Tylenol 650 mg PO once lg3 22:42 Drug: Crane (HYDROcodone-acetaminophen) 10 mg-325 mg 1 tabs Route: PO; lg3 22:42 Follow up: Response: No adverse reaction lg3 23:01 Drug: NS 0.9% 1000 ml Route: IV; Rate: 75 ml/hr; Site: right forearm; lg3 23:02 Follow up: IV Status: Infusion continued upon admission lg3 23:01 Drug: Potassium Chloride 40 mEq Route: PO; lg3 23:01 Follow up: Response: No adverse reaction lg3 Point of Care Testing: Guaiac: 22:11 Stool Guaiac: Negative; Stool Hemoccult Control: Pass; rn Disposition Summary: 05/11/22 22:03 Hospitalization Ordered Hospitalization Status: Inpatient Admission rn Condition: Stable rn Problem: new rn Symptoms: are unchanged rn Bed/Room Type: Standard rn Provider: Issa Valladares(05/11/22 22:05) faith Location: [facility] ER HOLD(05/11/22 22:41) mw Room Assignment: ERHOLD-(05/11/22 22:41) mw Diagnosis - UTI/ Urinary tract infection, site not specified rn - Muscle weakness (generalized) rn - Dehydration rn Forms: - Medication Reconciliation Form rn - SBAR form rn Signatures: Dispatcher [employer] EDND Marly Foote RN Efrain Jackson MD MD rn Attema, Lee, OPTICAL EFFECTS LINE UP PERSON-C OPTICAL EFFECTS LINE UP PERSON-Cla1 Radhika Marinelli RN Elizabeth Russ RN RN lg3 Corrections: (The following items were deleted from the chart) 22:05 22:03 Adriano Gordon rn la1 : 22:03 Telemetry/MedSurg (Inpatient) maryana [place] :41 22:03 maryana [place]
--- NOTE | 2022-05-11 22:04 | ER ---
Nurse's Notes [facility] Name: Sourav Higgins Age: 62 yrs Sex: Female : 1960 Arrival Date: 05/11/2022 Time: 19:23 Bed 24 Private MD: Diagnosis: UTI/ Urinary tract infection, site not specified;Muscle weakness (generalized);Dehydration Presentation: 05/11 19:24 Chief complaint: Daughter reports fall with left arm fracture 4 days ago, was unable to hb go to ortho follow up today, has had multiple falls over the weekend and has been acting confused. Pt reports dizziness and headache. Coronavirus screen: At this time, the client does not indicate any symptoms associated with coronavirus-19. Ebola Screen: No symptoms or risks identified at this time. Initial Sepsis Screen: Does the patient meet any 2 criteria? No. Patient's initial sepsis screen is negative. Does the patient have a suspected source of infection? No. Patient's initial sepsis screen is negative. Risk Assessment: Do you want to hurt yourself or someone else? Patient reports no desire to harm self or others. Onset of symptoms was May 07, 2022. 19:24 Method Of Arrival: Wheelchair hb 19:24 Acuity: ERIN 2 hb Historical: - Allergies: 19:27 Codeine; hb 19:27 oxycodone; hb 19:27 thimerosal; hb 19:27 tramadol; hb - PMHx: 19:27 Asthma; COPD; Deaf to right ear only; Hypertensive disorder; CVA; diabetes mellitus; hb - PSHx: 19:27 Cholecystectomy; hysterectomy; Right hip; tubal ligation; hb - Immunization history:: Adult Immunizations up to date, Client reports having NOT received the Covid vaccine. - Social history:: Smoking status: Patient reports the use of cigarette tobacco products, smokes one pack cigarettes per day. - Family history:: not pertinent. - Hospitalizations: : No recent hospitalization is reported. Screenin:33 Abuse screen: Denies threats or abuse. Denies injuries from another. Nutritional lg3 screening: No deficits noted. Tuberculosis screening: No symptoms or risk factors identified. Fall Risk Fall in past 12 months (25 points). Secondary diagnosis (15 points) impaired mobility, IV access (20 points). Ambulatory Aid- Crutches/Cane/Walker (15 pts). Gait- Weak (10 pts.). Mental Status- Oriented to own ability (0 pts). Total Farris Fall Scale indicates High Risk Score (45 or more points). Side Rails Up X 2 Frequent Obs/Assessments Occuring Family Present and informed to notify staff if the need to leave the bedside As available patient and family educated on Fall Prevention Program and Strategies. Assessment: 20:33 General: Appears in no apparent distress. comfortable, Behavior is calm, cooperative. lg3 Pain: Complains of pain in left arm, generalized body aches. Neuro: No deficits noted. Level of Consciousness is awake, alert, obeys commands, Oriented to person, place, time, situation. Cardiovascular: No deficits noted. Denies chest pain, shortness of breath, Capillary refill < 3 seconds Clubbing of nail beds is absent JVD is absent Patient's skin is warm and dry. Respiratory: No deficits noted. Airway is patent Trachea midline Respiratory effort is even, unlabored, Respiratory pattern is regular, symmetrical. GI: No deficits noted. No signs and/or symptoms were reported involving the gastrointestinal system. Abdomen is flat, non-distended. : No deficits noted. No signs and/or symptoms were reported regarding the genitourinary system. EENT: No deficits noted. No signs and/or symptoms were reported regarding the EENT system. Derm: No deficits noted. No signs and/or symptoms reported regarding the dermatologic system. Skin is intact, is healthy with good turgor, Skin is dry, Skin temperature is warm. Musculoskeletal: Circulation, motion, and sensation intact. left arm splinted and wrapped with edward wrap prior to arrival. 21:38 Reassessment: Patient appears in no apparent distress at this time. No changes from lg3 previously documented assessment. Patient and/or family updated on plan of care and expected duration. Pain level reassessed. Patient is alert, oriented x 3, equal unlabored respirations, skin warm/dry/pink. 23:24 Reassessment: Patient appears in no apparent distress at this time. No changes from lg3 previously documented assessment. Patient and/or family updated on plan of care and expected duration. Pain level reassessed. Patient is alert, oriented x 3, equal unlabored respirations, skin warm/dry/pink. Vital Signs: 19:24 BP 148 / 88; Pulse 102; Resp 20; Temp 97.8; Pulse Ox 96% on R/A; Pain 8/10; hb 23:24 BP 138 / 86; Pulse 96; Resp 18 S; Pulse Ox 97% on R/A; lg3 ED Course: 19:23 Patient arrived in ED. hb 19:25 Efrain Valladares MD is Attending Physician. rn 19:26 Triage completed. hb 19:27 Arm band placed on. hb 20:06 Inserted saline lock: 22 gauge in right forearm, using aseptic technique. Blood zm collected. 20:06 Protime (+inr) Sent. zm 20:06 Ptt, Activated Sent. zm 20:06 Basic Metabolic Panel Sent. zm 20:06 CBC with Diff Sent. zm 20:09 CT Head C Spine In Process Unspecified. EDMS 20:16 Elizabeth Mazariegos, RN is Primary Nurse. lg3 20:20 XRAY Chest (1 view) In Process Unspecified. EDMS 20:20 XRAY Pelvis In Process Unspecified. EDMS 20:23 SARS-COV-2 RT PCR (Document "Date of Onset" if Symptomatic) Sent. lg3 20:33 Patient has correct armband on for positive identification. Placed in gown. Bed in low lg3 position. Call light in reach. Side rails up X2. Client placed on continuous cardiac and pulse oximetry monitoring. NIBP monitoring applied. agricultural systems specialist on. Door closed. Noise minimized. Warm blanket given. Family accompanied patient. 20:33 Urine Microscopic Only Sent. lg3 22:03 Adriano Gordon MD is Hospitalizing Provider. rn 22:05 Issa Valladares MD is Hospitalizing Provider. la1 23:23 No provider procedures requiring assistance completed. Patient admitted, IV remains in lg3 place. intact, No redness/swelling at site. Administered Medications: 20:33 Drug: NS 0.9% 1000 ml Route: IV; Rate: 1000 ml; Site: right forearm; lg3 23:01 Follow up: Response: No adverse reaction; IV Status: Infusion continued; IV Intake: lg3 1000ml 22:29 Not Given (Physician Discretion): Tylenol 650 mg PO once lg3 22:42 Drug: [place] (HYDROcodone-acetaminophen) 10 mg-325 mg 1 tabs Route: PO; lg3 22:42 Follow up: Response: No adverse reaction lg3 23:01 Drug: NS 0.9% 1000 ml Route: IV; Rate: 75 ml/hr; Site: right forearm; lg3 23:02 Follow up: IV Status: Infusion continued upon admission lg3 23:01 Drug: Potassium Chloride 40 mEq Route: PO; lg3 23:01 Follow up: Response: No adverse reaction lg3 Medication: 23:23 VIS not applicable for this client. lg3 Point of Care Testing: Guaiac: 22:11 Stool Guaiac: Negative; Stool Hemoccult Control: Pass; learning specialist: 23:01 IV: 1000ml; Total: 1000ml. lg3 Outcome: 22:03 Decision to Hospitalize by Provider. rn 23:23 Admitted to ER Hold. Please see [facility] for further documentation. lg3 23:23 Condition: stable 23:23 Instructed on the need for admit. 05/12 05:58 Patient left the ED. mw2 Signatures: Dispatcher [employer] EDMS Efrain Valladares MD MD rn Attema, Lee, COLOR TECHNICIAN-C COLOR TECHNICIAN-Cla1 Radhika Marinelli RN RN Jennifer Hines 2 Elizabeth Mazariegos RN RN lg3 Rosa Bell Corrections: (The following items were deleted from the chart) 05/11 19:28 19:24 Chief complaint: Daughter reports fall with left arm fracture 4 days ago, was hb unable to go to ortho follow up today, has had multiple falls over the weekend and has been more confused than normal. Pt reports dizziness and headache.
[2022-05-11] MEDS ORDERED: HYDROCODONE/APAP 10/325 TAB ONE (22:35)
[2022-05-11] MEDS ORDERED: ONDANSETRON 4 MG/2 ML VIAL IV PRN (22:54)
[2022-05-11] MEDS: NA CHLORIDE 0.9% 1,000 ML IV SCH (23:00)
[2022-05-11] MEDS ORDERED: POTASSIUM CL SA 10 MEQ TAB PO ONE (23:08)
--- NOTE | 2022-05-11 23:10 | P.HP ---
Certification for Inpatient Patient admitted to: Inpatient With expected LOS: >2 Midnights Patient will require the following post-hospital care: None Practitioner: I am a practitioner with admitting privileges, knowledge of patient current condition, hospital course, and medical plan of care. Services: Services provided to patient in accordance with Admission requirements found in Title 42 Section 412.3 of the Code of Federal Regulations Patient History Date of Service: 05/11/22 Reason for admission: Hyponatremia, UTI History of Present Illness: 62-year-old female with history of COPD, hypertension, CVA, diabetes mellitus type [id number], hypothyroidism presents to the emergency department for frequent falls, intermittent dizziness. Patient had a fall on Tuesday went to the ER in [place] and was diagnosed with a distal humeral/supracondylar fracture. She has had 2 more falls since then she was supposed to follow-up with orthopedic today but unable to make it given feeling weak. Patient was evaluated in the emergency department here she is found to have urinary tract infection with leukocytosis, microcytic anemia, moderate hyponatremia, hypokalemia. Patient reports she is been dealing with falls over the course of the last 10 years but this week has been worse, she denies ever having low sodium levels in the past she does take hydrochlorothiazide at home she is unsure if the dose reports there have been any changes recently. She denies alcohol intake she does report that she takes hydrocodone 10 mg "the maximum dose and frequency possible". She was also noted to be anemic with a hemoglobin of 8, she reports that a few weeks ago she had some bright red blood in her stool with diarrhea but this is since resolved, her rectal exam in the ER was Hemoccult negative with brown stool. She does have a cane, walker at home that she typically uses she has been using her cane recently with the falls. ED provider wishes to admit for further evaluation and management. Allergies codeine Allergy (Mild, Verified 03/15/22 10:16) Itching/Nightmares oxycodone [From Percocet] Allergy (Mild, Verified 03/15/22 10:16) Hives/Itching thimerosal Allergy (Mild, Verified 03/15/22 10:16) Swelling, Whelps, Itching tramadol Allergy (Mild, Verified 03/15/22 10:16) Nausea/Vomiting Home Medications: Albuterol Sulfate [Albuterol Sulfate Hfa] 1 puff IN DAILY PRN 06/16/20 Clopidogrel Bisulfate [Plavix*] 75 mg PO DAILY 06/16/20 Diphenhydramine HCl [Benadryl Allergy] 25 mg PO Q4H PRN 06/16/20 Duloxetine [Cymbalta *] 60 mg PO BEDTIME 06/16/20 Gabapentin 300 mg PO TID 06/16/20 Glipizide [Glipizide ER] 10 mg PO DAILY 06/16/20 Hydrocodone 10/APAP 325 [[place] 10/325*] 1 tab PO QID PRN 06/16/20 Levothyroxine Sodium 200 mcg PO 0606/16/20 Lisinopril [Zestril] 5 mg PO DAILY 06/16/20 Magnesium Oxide [Magnesium] 500 mg PO BID 06/16/20 Metformin HCl [Metformin ER Osmotic] 1,000 mg PO BID 06/16/20 Montelukast [Singulair*] 10 mg PO BEDTIME 06/16/20 Omeprazole [Prilosec] 40 mg PO 30 06/16/20 Simvastatin 10 mg PO BEDTIME 06/16/20 hydroCHLOROthiazide [Hydrochlorothiazide*] 12.5 mg PO DAILY 06/16/20 Biotin 10,000 mcg PO DAILY 03/15/22 Cholecalciferol (Vitamin D3) [Vitamin D3] 2,000 unit PO DAILY 03/15/22 LORazepam [Ativan] 0.5 mg PO DIRECTED 03/15/22 Potassium Chloride 10 meq PO DAILY 03/15/22 - Past Medical/Surgical History Diabetic: Yes -: Type 2 diabetes mellitus -: Hypertension -: Diabetic neuropathy -: History of CVA in 2006 -: Chronic pain -: Hypothyroidism -: Right ear deafness -: Balance 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 -: Hysterectomy -: Bladder suspension Psychosocial/ Personal History: Lives at home with boyfriend of many year - Family History Family History: Reviewed- Non-Contributory - Social History Smoking Status: Current every day smoker Counseled patient to stop smoking for: less than 10 minutes Smoking therapy provided: Yes Alcohol use: No CD- Drugs: No Caffeine use: No Place of Residence: Home Review of Systems 10-point ROS is otherwise unremarkable General: Weakness, Malaise Neurological: Other (Unsteady gait) Physical Examination - Physical Exam General: Alert, In no apparent distress, Oriented x3 HEENT: Atraumatic, PERRLA, Mucous membr. moist/pink, EOMI, Sclerae nonicteric Neck: Supple, 2+ carotid pulse no bruit, No LAD, Without JVD or thyroid abnormality Respiratory: Clear to auscultation bilaterally, Normal air movement Cardiovascular: Regular rate/rhythm, Normal S1 S2 Capillary refill: <2 Seconds Gastrointestinal: Normal bowel sounds, No tenderness Musculoskeletal: No tenderness, Other (Left arm in sling, CMS intact distal) Integumentary: No rashes Neurological: Normal speech, Normal strength at 5/5 x4 extr, Normal tone, Normal affect - Studies Laboratory Data (last 24 hrs) 05/11/22 19:50: PT 11.1, INR 1.01, APTT 29.6 05/11/22 19:50: Sodium 122 L, Potassium 3.3 L, BUN 10, Creatinine 0.85, Glucose 164 H 05/11/22 19:50: WBC 16.0 H, Hgb 8.1 L, Hct 25.9 L, Plt Count 478 H Assessment and Plan - Plan Assessment: Frequent falls, unsteady gaits Hyponatremia UTI Microcytic anemia Hypokalemia Diabetes mellitus type [id number] Hypertension COPD Tobacco abuse Left humeral fracture-subacute Chronic pain Plan: Frequent falls, unsteady gaits: Physical therapy consult in place, patient has cane, walker at home has been using the cane only recently discussed the patient likely need to use her walker more often. Hyponatremia, UTI could also be contributing we will continue to treat possible underlying cause. Hyponatremia: Suspect this is related to patient's use of hydrochlorothiazide, this medication is being held patient did receive 1 L NS bolus in ER continue with NS at 75 cc/h recheck sodium with morning lab. UTI: Patient with significant UTI. Continue with antibioticsRocephin urine culture obtained. Microcytic anemia: Hemoccult negative, rectal exam with soft brown stool, patient does report an episode a few weeks ago of bright red blood per rectum/diarrhea which had since resolved suspect anemia from blood loss/UMANG. UMANG labs ordered. Hypokalemia: Protocol in place, replaced in the emergency department Diabetes mellitus type [id number]: ACH S Accu-Chek, sliding scale insulin Hypertension: Continue home medications, hold hydrochlorothiazide COPD: As needed nebs Tobacco abuse: Counseled on need for cessation provided NicoDerm patch. Left humeral fracture-subacute: Patient had left humeral fracture after fall on Tuesday with supposed to follow-up with orthopedics yesterday but unable to make it, will obtain x-ray to assess for stability/changes consult Ortho as necessary. Chronic pain: Patient reports that she takes hydrocodone 10 mg every 4 to every 6 hours at home for many years now prescribed by her primary care doctor will check NET MVC DEVELOPER aware and continue her pain medications as appropriate. DVT PPX: Lovenox Code status: Full Discharge Plan: Home Plan to discharge in: 48 Hours - Advance Directives Does patient have a Living Will: No Does patient have a Durable POA for Healthcare: No - Code Status/Comfort Care Code Status Assessed: Yes (Full code) Critical Care: No Time Spent Managing Pts Care (In Minutes): 70
[2022-05-12 05:14] LABS: Absolute Lymphocytes (CBC) 3.8 K/uL (0.7-4.9); Albumin 2.7 g/dL (3.4-5.0); Alkaline Phosphatase 93 U/L (45-117); BUN Blood Urea Nitrogen 9 mg/dL (7-18); Bicarbonate 25 mmol/L (21-32); Bilirubin Total 0.3 mg/dL (0.2-1.0); Glomerular Filtration Rate 90 ml/min (=/>90); Glucose Level 155 mg/dL (74-106); Hematocrit 24.1 % (36.0-45.0); Lymphocytes % 25.8 % (15.3-44.8); MPV 6.9 fL (7.6-11.3); Magnesium 1.7 mg/dL (1.8-2.4); Potassium 3.5 mmol/L (3.5-5.1); Protein, Total 6.7 g/dL (6.4-8.2); RBC Red Blood Cell Count 3.95 M/uL (3.86-4.86); Sodium Level 126 mmol/L (136-145); Thyroid Stimulating Hormone 0.119 uIU/mL (0.360-3.740); Transferrin 241 mg/dL (200-360)
[2022-05-12 05:35] LABS: Blood Morphology Comment NOTED (NOT SEEN); Platelet Estimate INCR
[2022-05-12 05:36] LABS: Anisocytosis 4+; Hypochromasia 2+; White Blood Cell Scan OK (OK)
[2022-05-12] MEDS ORDERED: HYDROCODONE/APAP 10/325 TAB ONE (05:37)
[2022-05-12 05:41] LABS: ALT/SGPT < 10 U/L (12-78); AST/SGOT < 3 U/L (15-37)
[2022-05-12] MEDS: HYDROCODONE/APAP 10/325 TAB PO PRN ×3 (05:43→19:38)
--- NOTE | 2022-05-12 07:21 | EKG ---
Test Date: 2022-05-11 Test Time: 20:31:48 Dry Wall Installations Mechanic: IFEOMA MEASUREMENT RESULTS: Intervals: Rate: 93 [place]: 190 QRSD: 80 QT: 400 QTc: 497 [place]: P: 47 [place]: 190 QRS: 14 T: 104 INTERPRETIVE STATEMENTS: Sinus rhythm with marked sinus arrhythmia Possible Inferior infarct, age undetermined Abnormal ECG Compared to ECG 05/11/2022 20:30:39 Atrial premature complex(es) no longer present Myocardial infarct finding still present Electronically Signed On 05-12-22 07:20:27 CDT by Son Amezcua
--- NOTE | 2022-05-12 07:21 | EKG ---
Test Date: 2022-05-11 Test Time: 20:30:39 Human Resources Intern: IFEOMA MEASUREMENT RESULTS: Intervals: Rate: 92 [place]: 190 QRSD: 80 QT: 404 QTc: 499 [place]: P: 49 [place]: 190 QRS: 14 T: 93 INTERPRETIVE STATEMENTS: Sinus rhythm with premature atrial complexes Inferior infarct, age undetermined Abnormal ECG Compared to ECG 03/15/2022 10:37:03 Atrial premature complex(es) now present Myocardial infarct finding still present Electronically Signed On 05-12-22 07:20:27 CDT by Son Amezcua
[2022-05-12] MEDS: INSULIN -REGULAR HUMAN 50 UNIT/0.5 ML ML SQ SCH ×4 (07:30→20:28)
[2022-05-12 08:04] VITALS: O2SAT 97
[2022-05-12] MEDS ORDERED: MAGNESIUM SULFATE 1 gm IVPB 1 GM/100 ML BAG IV ONE (08:30)
[2022-05-12] MEDS ORDERED: POTASSIUM CL SA 10 MEQ TAB PO ONE (08:30)
[2022-05-12] MEDS: ENOXAPARIN 40 MG/0.4 ML SQ SCH (08:41)
[2022-05-12] MEDS: NICOTINE 21 MG/PAT TD SCH (08:42)
[2022-05-12] MEDS: CEFTRIAXONE 1,000 MG in NA CHLORIDE 0.9% 50 ML IVPB SCH (08:42)
--- NOTE | 2022-05-12 08:49 | RAD REPORT ---
EXAM DESCRIPTION: RAD - Elbow Left 3 View - 05/12/2022 1:10 am CLINICAL HISTORY: Left elbow fracure, new fall. COMPARISON: No comparisons FINDINGS: Mildly displaced fracture of the distal humeral metaphysis is present. A dislocation is no t evident. Plaster splint is in place, limiting bone detail.
[2022-05-12 10:33] VITALS: BMI 23.0
[2022-05-12] MEDS: NA CHLORIDE 0.9% 1,000 ML IV SCH ×2 (12:42→23:56)
[2022-05-12] MEDS ORDERED: NA CHLORIDE 0.9% 250 ML IV SCH (14:00)
--- NOTE | 2022-05-12 15:32 | CON ---
Date of Consultation: 05/12/2022 Reason For Consultation: Hyponatremia. History Of Present Illness: This is a 62-year-old female with significant past medical history of hypertension, CVA, diabetes complicated with neuropathy, hypothyroidism, COPD, the patient was in her regular state of health, apparently has recurrent falls, for that reason, reported to the hospital, found to be hyponatremic at 122. For that reason, we have been consulted. The patient apparently has been on hydrochlorothiazide and had diarrhea for the last 2 months. No fever or chills. The patient supposed to be seen by Dr. Pérez GI, but could not make it. Past Medical History: Includes; 1. Hypertension. 2. Hyperlipidemia. 3. COPD. 4. CVA. 5. Diabetes complicated with neuropathy. 6. Hypothyroidism. Allergies: TO CODEINE, OXYCODONE, TRAMADOL, Home Medications: Include Plavix, albuterol, diphenhydramine, gabapentin, levothyroxine, lisinopril, magnesium, metformin, hydrochlorothiazide, _ lorazepam, KCl. Family History: Positive for hypertension. Social History: Active smoker, occasional alcohol. Denied drugs abuse. Review of Systems: Head and Neck: No red eye. No ear pain. GI: Has diarrhea. : No polyuria. No dysuria. No hematuria. 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 Respiratory: No shortness of breath. Cardiovascular: No chest pain. Endocrine: No polydipsia. Skin: No rash. Neuro: Has dizziness. Has fall. Musculoskeletal: Has left arm pain. Skin: No rash. Physical Examination: Vital Signs: When I saw the patient; blood pressure 140/66, pulse of 92, afebrile. Chest: Clear to auscultation. Heart: S1, S2. Regular. Abdomen: Soft, nontender. Extremities: No edema. Cast on the left arm. Neurologic: Alert. No focality. Laboratory Data: WBC 14.7, H and H 7.6/24.1. Sodium 126, potassium 3.5, bicarb 25, BUN 9, creatinine 0.7, calcium 8.4. Iron saturation 4.7, ferritin 18. Current Medications: The patient on ceftriaxone, nicotine, IV fluid. Assessment And Plan: 1. Hyponatremia, mostly depletional, secondary to hydrochlorothiazide, superimposed with gastrointestinal loss secondary to diarrhea. I am going to go ahead and discontinue hydrochlorothiazide. We will continue on IV hydration and we will monitor the patient. 2. Hypertension, controlled, optimal. Continue current treatment. 3. Urinary tract infection. Started on ceftriaxone. We will follow up culture. 4. Hyponatremia secondary to depletion, superimposed with hydrochlorothiazide. We will start IV hydration. I am going to send for uric acid, TSH given the presence of hypothyroidism history and we will send for urine electrolyte. We will follow up. 5. Hypertension with the presence of hyponatremia. Discontinue hydrochlorothiazide. 6. Diabetes as by primary. Time spent examining the patient [id number], reviewing the data, placing order, discussing with by bedside, discussing with staff member including charge nurse and nursing and hospitalist 65 minutes. CANDIDO Voice ID: [id number] Report ID: [id number] MTDD
[2022-05-12] MEDS ORDERED: NA CHLORIDE 0.9% 250 ML ONE (15:33)
[2022-05-12] MEDS: BENZONATATE 100 MG CAP PO PRN ×2 (15:34→22:54)
[2022-05-12] MEDS: HYDRALAZINE HCL 20 MG/ML VIAL IV PRN (16:41)
[2022-05-12] MEDS ORDERED: LABETALOL 20 MG/4ML SYRINGE IV ONE (19:14)
[2022-05-12] MEDS ORDERED: MELATONIN 5 MG TABLET PO PRN (20:40)
--- NOTE | 2022-05-12 20:57 | P.PN ---
Date of Service: 05/12/22 Subjective: pain improved with medication, still with LUE pain with some slight confusion, tangential at times ROS: 10 point ROS as noted above, otherwise negative Physical exam GEN: Alert, oriented HEENT: Normal conjunctiva, sclera anicteric CV: Regular rate and rhythm, no edema Pulm: non-labored respirations on room air ABD: Soft, nontender, nondistended MSK: LUE in sling, intact distal sensation. tenderness with ROM Neuro: Normal speech, normal affect Problem List Frequent falls, unsteady gaits Hyponatremia UTI Microcytic anemia Hypokalemia Diabetes mellitus type [id number] Hypertension COPD Tobacco abuse Left humeral fracture-subacute Chronic pain falls in distant past, and multiple falls over last few days fell Tuesday, 05/07 and noted L distal humeral fracture at [place], dc'd home to f/u with Ortho Daughter reports patient has had dark smelly urine recently UA concerning for UTI suspect UTI lead to fall hyponatremia likely secondary to hypovolemia / HCTZ nephrology consulted microcytic anemia - significant iron deficiency anemia. Hgb <8; denies h/o anemia given falls, <8, and needs surgery on elbow, will transfuse 1uPRBC patient will need iron as well continue IVF Ortho consulted - patient is ~5 days from fall and recommendations are to have this fixed within 12 days; recommended transfer to tertiary care center for elbow specialist patient likely to remain in hospital for ~2-3 more days, leaving her 2-3 days to (ideally) undergo surgical correction sliding scale insulin, continue home meds, hold HCTZ continue 10mg hydrocodone, BLUEPRINT ASSEMBLER reviewed, no red flags Code: full Dispo: initiate transfer for elbow repair Time Spent Managing Pts Care (In Minutes): 35
[2022-05-13] MEDS: HYDROCODONE/APAP 10/325 TAB PO PRN ×3 (01:34→19:48)
[2022-05-13 03:59] LABS: Hematocrit 27.3 % (36.0-45.0); Lymphocytes % 22.6 % (15.3-44.8); MPV 7.1 fL (7.6-11.3); RBC Red Blood Cell Count 4.24 M/uL (3.86-4.86)
[2022-05-13 04:09] LABS: MCV 64.3 fL (80-100)
[2022-05-13 04:29] LABS: Albumin 2.7 g/dL (3.4-5.0); Phosphorus 2.8 mg/dL (2.5-4.9); Potassium 3.3 mmol/L (3.5-5.1); Thyroid Stimulating Hormone 0.228 uIU/mL (0.360-3.740); Uric Acid 2.2 mg/dL (2.6-6.0)
[2022-05-13 04:31] LABS: Magnesium 1.4 mg/dL (1.8-2.4)
[2022-05-13] MEDS ORDERED: Magnesium Sulfate 2gm IVPB 2 G/50 ML BAG IV ONE (04:35)
[2022-05-13] MEDS ORDERED: POTASSIUM CL SA 10 MEQ TAB PO ONE (04:36)
--- NOTE | 2022-05-13 05:32 | DS ---
History Of Present Illness: I have seen this patient in the past. Apparently, she has been having p roblems with frequent falls. She fell approximately 4 days ago, injuring her left upper extremity. She was placed into a splint and asked to follow up and apparently has an appointment to follow up wi th me tomorrow, was unfortunately admitted to the hospital for frequent falls and according to the spitalist, also has some electrolyte abnormalities as well as a urinary tract infection, which they a re currently treating. I am consulted as x-rays of the elbow demonstrated a fracture. Physical Examination: All of her long bones and joints are palpated without pain or crepitation. She appears to be neurova scularly intact to both hands. She is in a well-padded posterior splint and does have pain at her el bow. Review of x-rays reveal a highly comminuted transcondylar intercondylar fracture of the distal humeru s with significant displacement. Assessment: This is a 62-year-old female now with a transcondylar intercondylar fracture, which is c omminuted and displaced of the left humerus. Plan: This is a very complex fracture pattern, which is probably best treated at a Tertiary Center. This would probably require an olecranon osteotomy and then either dual plating using open reduction and internal fixation, but may even need a total elbow arthroplasty. The open reduction and interna l fixation could possibly be achieved by myself. However, this may not be possible without assistanc e of other physicians, which is not an option and could be significantly prolonged causing greater ch ance of complication. If this is not able to be achieved because of the comminution and very small f ragments, total elbow arthroplasty is not something that I do in my practice. The plan would be for the hospitalist to correct her sodium and possibly treat her urinary tract infection, which would ava d to no longer need for hospitalization and then undergo procedure for her left elbow, which should b e done at a tertiary care center. I have explained this to both the patient and her caregiver, who i s in the room and they stated they understand things as presented. I have also explained this to Dr. Valladares, who will try to transfer to a tertiary care center to address her sodium and UTI; however, th is may not be possible. Given names of several subspecialists to Dr. Valladares, and also to the family; however, they may be discharged, and we may have to assist further in getting them to the correct sub specialist. Otherwise, all the family's questions have been invited and answered today. AJ Voice ID: [id number] Report ID: [id number]
[2022-05-13] MEDS: HYDRALAZINE HCL 20 MG/ML VIAL IV PRN (05:59)
--- NOTE | 2022-05-13 06:43 | P.PN ---
Date of Service: 05/13/22 Subjective: no longer confused, feeling better continues with some pain of arm working with PT ROS: 10 point ROS as noted above, otherwise negative Physical exam GEN: Alert, oriented x3, NAD HEENT: Normal conjunctiva, sclera anicteric CV: Regular rate and rhythm, no edema Pulm: non-labored respirations on room air ABD: Soft, nontender, nondistended MSK: LUE in sling, intact distal sensation. tenderness with ROM Neuro: Normal speech, normal affect Problem List Frequent falls, unsteady gaits secondary to UTI acute metabolic encephalopathy secondary to UTI Hyponatremia secondary to HCTZ Microcytic anemia Hypokalemia Diabetes mellitus type [id number] Hypertension COPD Tobacco abuse Left humeral fracture-subacute Chronic pain falls in distant past, and multiple falls over last few days fell Tuesday, 05/07 and noted L distal humeral fracture at [facility], dc'd home to f/u with Ortho - family report patient was told couldn't be seen due to not having appropriate referral. Patient rescheduled with different surgeon Daughter reports patient has had dark smelly urine recently Patient with UTI which likely lead to encephalopathy and falls hyponatremia likely secondary to hypovolemia / HCTZ; improving with IVF nephrology consulted microcytic anemia - significant iron deficiency anemia. Hgb <8; denies h/o anemia given falls, <8, and needs surgery on elbow, transfused 1uPRBC on 05/12 patient will need iron as well Ortho consulted - patient is ~5 days from fall and recommendations are to have this fixed within 12 days; recommended transfer to tertiary care center for elbow specialist patient likely to remain in hospital for ~2-3 more days, leaving her 2-3 days to (ideally) undergo surgical correction transfer initiated, awaiting call back social science research assistant consulted to assist with possible outpatient follow up. sliding scale insulin, continue home meds, hold HCTZ continue 10mg hydrocodone, [employer] reviewed, no red flags Code: full Dispo: initiated transfer for elbow repair vs home with close follow up Time Spent Managing Pts Care (In Minutes): 35
[2022-05-13] MEDS ORDERED: lisinopriL 5 MG TAB PO ONE (08:14)
[2022-05-13] MEDS: INSULIN -REGULAR HUMAN 50 UNIT/0.5 ML ML SQ SCH ×4 (08:35→22:53)
[2022-05-13] MEDS: NICOTINE 21 MG/PAT TD SCH (08:36)
[2022-05-13] MEDS: CLOPIDOGREL 75 MG TABLET PO SCH (08:36)
[2022-05-13] MEDS: ENOXAPARIN 40 MG/0.4 ML SQ SCH (08:36)
[2022-05-13] MEDS: CEFTRIAXONE 1,000 MG in NA CHLORIDE 0.9% 50 ML IVPB SCH (08:36)
[2022-05-13] MEDS: BENZONATATE 100 MG CAP PO PRN ×2 (08:38→19:49)
--- NOTE | 2022-05-13 13:14 | PN ---
Date of Progress Note: 05/13/2022 Subjective: The patient was admitted with hyponatremia, recurrent fall. Hyponatremia was secondary to chlorthalidone. The patient was started on aggressive IV fluids. Sodium started being normalized, appropriate rise. Physical Examination: Vital Signs: Blood pressure 161/82, pulse of 80, afebrile. Chest: Clear to auscultation. Heart: S1, S2. Regular. Abdomen: Soft, nontender. Extremity: Cast on the left arm. No edema. Neurologic: Alert. No focality. No tremors. Laboratory Data: WBC 13.1, H and H 8.8/27.3. Sodium 131, potassium 3.3, bicarb 22, BUN 7, creatinine 0.5, calcium 8.3, uric acid 2.2, magnesium 1.3. Assessment And Plan: 1. Hyponatremia secondary to depletional, superimposed with chlorthalidone, improved with appropriate rise. I am going to go ahead and discontinue IV fluid. We will continue to monitor the patient. 2. Hypomagnesemia, hypokalemia. We will supplement. 3. Hypertension, not controlled. We will discontinue IV fluid. The patient has history of diabetes. I am going to go ahead and resume her lisinopril. We will follow up. 4. Urinary tract infection. Continue current antibiotic. Culture still pending. 5. Left arm fracture. We will follow up with Ortho. We will follow up with primary. Time spent examining the patient [id number], reviewing the data, placing order, discussing with by bedside, discussing with staff member including charge nurse and nursing and hospitalist 45 minutes. CANDIDO Voice ID: [id number] Report ID: [id number]
--- OUTSIDE RECORDS SUMMARY | 2022-05-13 14:55 | XMS REPORT | Continuity of Care Document ---
:1960 Author Organization [facility] t Address [address] [place] [address] Care Team Providers Name Role Phone TREV BRIDGES Primary Care Physician Unavailable Solange ALLEN Attending Clinician Unavailable Sanjana PEÑA Attending Clinician Unavailable Sanjana Peña MD Attending Clinician Cristhian Garcia Attending Clinician Doctor Unassigned, Name Attending Clinician Unavailable Tomi العراقي DO Attending Clinician Raju_P Attending Clinician Unavailable Kan Gonzalez MD Attending Clinician KAN GONZALEZ Attending Clinician Unavailable Trev Bridges MD Attending Clinician TREV BRIDGES Attending Clinician Unavailable Shaye Admitting Clinician Unavailable Payers Payer Name Policy Type Policy Number Effective Date Expiration Date S tad HU[employer]NA MEDICARE [id number] 2021 ADV 00:00:00 HUMANA [facility] [id number] 2021 HMO 00:00:00 HUMANA (MEDICARE [id number] REPLACEMENT/ADVANT AGE - PPO) Problems Condition Condition Condition Status Onset Resolution Last Treating Co mments Source Name Details Category Date Date Treatment Clinician Date Hip Hip Disease Active 2017-10 Univers fracture fracture 1-18 ity of 00:00: [place] [address] Medical [place] Foot pain, Foot pain, Disease Active U nivers left left 6-20 ity of 00:00: [place] [address] Medical [place] Allergies, Adverse Reactions, Alerts Allergy Allergy Status Severity Reaction(s) Onset Inactive Treating Comm ents Source Name Type Date Date Clinician Fish Propensi Active Nausea 2018-10 Univers Containi ty to and/or 111 ity of ng adverse Vomiting 00:00: [place] Products reaction 00 Medica l s Branch Strawber Propensi Active Hives 2018- Univer s ry ty to 11 ity of adverse 00:00: [place] reaction 00 Medical s Branch FISH Drug Active High N/V 2018-10 Univers CONTAINI Class 1-11 ity of NG 00:00: [place] PRODUCTS 00 Medical Branch STRAWBER DRUG Active High Hives 2018- Univers RY INGREDI 1-11 ity of 00:00: [place] 00 Medical Branch Fish Propensi Active Nausea 2018- Univers Containi ty to and/or 11 ity of ng adverse Vomiting 00:00: [place] Products reaction 00 Medica l s Branch TRAMADOL DRUG Active N/V 2017- Univers INGREDI 18 ity of 00:00: [place] 00 Medical Branch Tramadol Propensi Active Nausea 2017-10 Univer s ty to and/or 18 ity of adverse Vomiting 00:00: [place] reaction 00 [facility] s Branch Codeine Propensi Active Itching 2016-0 Univer s ty to 6-07 ity of adverse 00:00: [place] reaction 00 [facility] Branch OXYCODON DRUG Active Hives 2016-0 Univers E-ACETAM 6-07 ity of INOPHEN 00:00: [place] 00 Medical [place] THIMEROS DRUG Active N/V 2016-0 Univers AL INGREDI 6-07 ity of 00:00: [place] 00 Medical [place] CODEINE DRUG Active Low N/V 2016-0 Univers INGREDI 6-07 ity of 00:00: [place] 00 Medical Branch Oxycodon Propensi Active Hives 2016-0 Univer s e-Acetam ty to 6-07 ity of inophen adverse 00:00: [place] reaction 00 Medical s Branch Thimeros Propensi Active Nausea 2015-0 Univer s al ty to and/or 6-07 ity of adverse Vomiting 00:00: [place] reaction 00 [facility] Social History Social Habit Start Date Stop Date Quantity Comments Source History of tobacco Cigarette Smoker [facility] Exposure to 2022-04-27 2022-05-07 Not sure University of SARS-CoV-2 (event) 00:00:00 19:59:00 [facility] Alcohol intake 2021-07-27 2021-07-27 0 /d University of 00:00:00 00:00:00 [facility] Tobacco use and 2016-04-12 2016-04-12 Smokeless Universit y of exposure 00:00:00 00:00:00 tobacco non-user [facility] Cigarettes smoked 2016-04-12 2016-04-12 [facility] ity of current (pack per 00:00:00 00:00:00 [place] ) - Reported Branch Cigarette 2016-04-12 2016-04-12 [place] of pack-years 00:00:00 00:00:00 [facility] Sex Ass[birth year] At [birth year] [facility] y of 00:00:00 00:00:00 [facility] Smoking Status Start Date Stop Date Source Smokes tobacco daily 2016-04-12 00:00:00 [facility] Medications Ordered Filled Start Stop Current Ordering Indication Dosage Frequency Signature Comments Components Source Medication Medication Date Date Medication? Clinician (SIG) Name Name FENTanyl PF 2021- No 50ug 50 mcg, Un jacinta (SUBLIMAZE 05-08 Slow IV ity o f (PF)) 02:00: 01:04 Push, [place] injection 00 :00 ONCE, 1 Medical 50 mcg dose, On Branch 05/07/22 at 2100, Routine clopidogrel 2017-10 Yes 75mg Take 75 mg Univers 75 mg 22 by mouth ity of tablet 00:13: daily. [address] Cholecalcif 2017-10 Yes 1000U Take 1,000 Univers leno, -22 Units by [place]y of Vitamin D3, 00:13: [place]. [place] (VITAMIN 18 Medical D3) 1,000 Branch unit capsule aspirin 81 2017-10 Yes 81mg Take 81 mg U nivers mg EC 11-14 by mouth ity of tablet 00:13: daily. [address] Magnesium 2017-10 Yes Take by [facility] ers Hydroxide 11-14 mouth. ity of 400 mg (170 00:13: [place] mg) [address] DULoxetine 2017-10 Yes 60mg Take 60 mg U nivers (CYMBALTA) 22 by mouth ity o f 60 mg 00:13: daily. [place] capsule [address] [place] [address] B 2017-10 Yes Take by Univers INFANTIS/B -22 mouth. ity of ANI/B KARUNA/B 00:13: [place] BIFID 18 Medical (PROBIOTIC Branch 4X ORAL) ranitidine 2017-10 Yes 150mg Take 150 Un jacinta (ZANTAC) 1-22 mg by ity of 150 mg 00:13: mouth 2 [place] tablet 18 (two) Medical times Branch daily. SELENIUM 2017-10 Yes Take by Unive rs ORAL - mouth. ity of 00:13: [address] Branch clopidogrel 2017-10 Yes 75mg Take 75 mg Univers 75 mg -22 by mouth ity of tablet 00:13: daily. [address] Branch Cholecalcif 2017-10 Yes 1000U Take 1,000 Univers leno, 1-22 Units by ity of Vitamin D3, 00:13: [place]. [place] (VITAMIN 18 Medical D3) 1,000 Branch unit capsule aspirin 81 2017-10 Yes 81mg Take 81 mg U nivers mg EC 11-14 by mouth ity of tablet 00:13: daily. [address] Magnesium 2017-10 Yes Take by Univ ers Hydroxide 11-14 mouth. ity of 400 mg (170 00:13: [place] mg) [address] Branch DULoxetine 2017-10 Yes 60mg Take 60 mg U nivers (CYMBALTA) 11-14 by mouth ity o f 60 mg 00:13: daily. [place] capsule Medical Branch B 2017-10 Yes Take by Univers INFANTIS/B -22 mouth. ity of ANI/B KARUNA/B 00:13: [place] BIFID 18 Medical (PROBIOTIC Branch 4X ORAL) ranitidine 2017-10 Yes 150mg Take 150 Un jacinta (ZANTAC) 1-22 mg by ity of 150 mg 00:13: mouth 2 [place] tablet 18 (two) Medical times Branch daily. SELENIUM 2017-10 Yes Take by Unive rs ORAL -22 mouth. ity of 00:13: [address] Branch clopidogrel 2017-10 Yes 75mg Take 75 mg Univers 75 mg -22 by mouth ity of tablet 00:13: daily. [address] Branch Cholecalcif 2017-10 Yes 1000U Take 1,000 Univers leno, 1-22 Units by ity of Vitamin D3, 00:13: [place]. [place] (VITAMIN 18 Medical D3) 1,000 Branch unit capsule aspirin 81 2017-10 Yes 81mg Take 81 mg U nivers mg EC - by mouth ity of tablet 00:13: daily. [place] [address] Medical Branch Magnesium 2017-10 Yes Take by [facility] ers Hydroxide - mouth. ity of 400 mg (170 00:13: [place] mg) Chew Medical Branch DULoxetine 2017-10 Yes 60mg Take 60 mg U nivers (CYMBALTA) -22 by mouth ity o f 60 mg 00:13: daily. [place] capsule 18 Medical Branch B 2017-10 Yes Take by Univers INFANTIS/B -22 mouth. ity of ANI/B KARUNA/B 00:13: [place] BIFID 18 Medical (PROBIOTIC Branch 4X ORAL) ranitidine 2017-10 Yes 150mg Take 150 Un jacinta (ZANTAC) 1-22 mg by ity of 150 mg 00:13: mouth 2 [place] tablet 18 (two) Medical times Branch daily. SELENIUM 2017-10 Yes Take by [facility] rs ORAL 11-14 mouth. ity of 00:13: [address] Branch clopidogrel 2017-10 Yes 75mg Take 75 mg Univers 75 mg 11-14 by mouth ity of tablet 00:13: daily. [address] Branch Cholecalcif 2017-10 Yes 1000U Take 1,000 Univers leno, -22 Units by ity of Vitamin D3, 00:13: mouth. [place] (VITAMIN [address] [place] [address] D3) 1,000 Branch unit capsule aspirin 81 2017-10 Yes 81mg Take 81 mg U nivers mg EC 11-14 by mouth ity of tablet 00:13: daily. [address] Branch Magnesium 2017-10 Yes Take by [facility] ers Hydroxide - mouth. ity of 400 mg (170 00:13: [place] mg) Chew Medical Branch DULoxetine 2017-10 Yes 60mg Take 60 mg U nivers (CYMBALTA) -22 by mouth ity o f 60 mg 00:13: daily. [place] capsule Medical Branch B 2017-10 Yes Take by [facility] INFANTIS/B -22 mouth. ity of ANI/B KARUNA/B 00:13: [place] BIFID 18 Medical (PROBIOTIC Branch 4X ORAL) ranitidine 2017-10 Yes 150mg Take 150 Un jacinta (ZANTAC) 1-22 mg by ity of 150 mg 00:13: mouth 2 [place] tablet 18 (two) Medical times Branch daily. SELENIUM 2017-10 Yes Take by Unive rs ORAL -22 mouth. ity of 00:13: [place] [address] Medical Branch clopidogrel 2017-10 Yes 75mg Take 75 mg Univers 75 mg -22 by mouth ity of tablet 00:13: daily. [place] [address] Medical Branch Cholecalcif 2017-10 Yes 1000U Take 1,000 Univers leno, 1-22 Units by ity of Vitamin D3, 00:13: [place]. [place] (VITAMIN 18 Medical D3) 1,000 Branch unit capsule aspirin 81 2017-10 Yes 81mg Take 81 mg U nivers mg EC 22 by mouth ity of tablet 00:13: daily. [place] [address] Medical Branch Magnesium 2017-10 Yes Take by Univ ers Hydroxide - mouth. ity of 400 mg (170 00:13: [place] mg) Chew Medical Branch DULoxetine 2017-10 Yes 60mg Take 60 mg U nivers (CYMBALTA) 11-14 by mouth ity o f 60 mg 00:13: daily. [place] [address] Medical Branch B 2017-10 Yes Take by Univers INFANTIS/B 11-14 mouth. ity of ANI/B KARUNA/B 00:13: [place] BIFID 18 Medical (PROBIOTIC Branch 4X ORAL) ranitidine 2017-10 Yes 150mg Take 150 Un jacinta (ZANTAC) 1-22 mg by ity of 150 mg 00:13: mouth 2 [place] tablet 18 (two) Medical times Branch daily. SELENIUM 2017-10 Yes Take by Unive rs ORAL -22 mouth. ity of 00:13: [address] Branch clopidogrel 2017-10 Yes 75mg Take 75 mg Univers 75 mg -22 by mouth ity of tablet 00:13: daily. [place] [address] Medical Branch Cholecalcif 2017-10 Yes 1000U Take 1,000 Univers leno, 1-22 Units by ity of Vitamin D3, 00:13: [place]. [place] (VITAMIN 18 Medical D3) 1,000 Branch unit capsule aspirin 81 2017-10 Yes 81mg Take 81 mg U nivers mg EC -22 by mouth ity of tablet 00:13: daily. [place] [address] Medical Branch Magnesium 2017-10 Yes Take by Univ ers Hydroxide -22 mouth. ity of 400 mg (170 00:13: [place] mg) Chew Medical Branch DULoxetine 2017-10 Yes 60mg Take 60 mg U nivers (CYMBALTA) 1-22 by mouth ity o f 60 mg 00:13: daily. [place] capsule 18 Medical Branch B 2017-10 Yes Take by Univers INFANTIS/B - mouth. ity of ANI/B KARUNA/B 00:13: [place] BIFID 18 Medical (PROBIOTIC Branch 4X ORAL) ranitidine 2017-10 Yes 150mg Take 150 Un jacinta (ZANTAC) 1-22 mg by ity of 150 mg 00:13: mouth 2 [place] tablet 18 (two) Medical times Branch daily. SELENIUM 2017-10 Yes Take by Unive rs ORAL 11-14 mouth. ity of 00:13: [address] Branch clopidogrel 2017-10 Yes 75mg Take 75 mg Univers 75 mg 11-14 by mouth ity of tablet 00:13: daily. [address] Branch Cholecalcif 2017-10 Yes 1000U Take 1,000 Univers leno, 11-14 Units by ity of Vitamin D3, 00:13: [place]. [place] (VITAMIN Medical D3) 1,000 Branch unit capsule aspirin 81 2017-10 Yes 81mg Take 81 mg U nivers mg EC 11-14 by mouth ity of tablet 00:13: daily. [address] Branch Magnesium 2017-10 Yes Take by Univ ers Hydroxide 11-14 mouth. ity of 400 mg (170 00:13: [place] mg) [address] Branch DULoxetine 2017-10 Yes 60mg Take 60 mg U nivers (CYMBALTA) 11-14 by mouth ity o f 60 mg 00:13: daily. [place] capsule Medical Branch B 2017-10 Yes Take by Univers INFANTIS/B 11-14 mouth. ity of ANI/B KARUNA/B 00:13: [place] BIFID 18 Medical (PROBIOTIC Branch 4X ORAL) ranitidine 2017-10 Yes 150mg Take 150 Un jacinta (ZANTAC) 1-22 mg by ity of 150 mg 00:13: mouth 2 [place] tablet 18 (two) Medical times Branch daily. SELENIUM 2017-10 Yes Take by Unive rs ORAL 11-14 mouth. ity of 00:13: [address] Branch DULoxetine 2017-10 Yes 60mg Take 60 mg U nivers (CYMBALTA) 11-13 by mouth ity o f 60 mg 18:13: daily. [place] capsule Medical Branch B 2017-10 Yes Take by Univers INFANTIS/B 1-21 mouth. ity of ANI/B KARUNA/B 18:13: [place] BIFID 18 Medical (PROBIOTIC Branch 4X ORAL) ranitidine 2017-10 Yes 150mg Take 150 Un jacinta (ZANTAC) 1-21 mg by ity of 150 mg 18:13: mouth 2 [place] tablet 18 (two) Medical times Branch daily. SELENIUM 2017-10 Yes Take by Unive rs ORAL 1-21 mouth. ity of 18:13: [address] clopidogrel 2017-10 Yes 75mg Take 75 mg Univers 75 mg 1-21 by mouth ity of tablet 18:13: daily. [address] Cholecalcif 2017-10 Yes 1000U Take 1,000 Univers leno, 1-21 Units by ity of Vitamin D3, 18:13: [place]. [place] (VITAMIN 18 Medical D3) 1,000 Branch unit capsule aspirin 81 2017-10 Yes 81mg Take 81 mg U nivers mg EC 1-21 by mouth ity of tablet 18:13: daily. [address] Magnesium 2017-10 Yes Take by Univ ers Hydroxide 1-21 mouth. ity of 400 mg (170 18:13: [place] mg) [address] DULoxetine 2017-10 Yes 60mg Take 60 mg U nivers (CYMBALTA) 1-21 by mouth ity o f 60 mg 18:13: daily. [place] capsule [address] [place] [address] B 2017-10 Yes Take by Univers INFANTIS/B 1-21 mouth. ity of ANI/B KARUNA/B 18:13: [place] BIFID Medical (PROBIOTIC Branch 4X ORAL) ranitidine 2017-10 Yes 150mg Take 150 Un jacinta (ZANTAC) 1-21 mg by ity of 150 mg 18:13: mouth 2 [place] tablet 18 (two) Medical times [place] daily. SELENIUM 2017-10 Yes Take by Unive rs ORAL 1-21 mouth. ity of 18:13: [address] clopidogrel 2017-10 Yes 75mg Take 75 mg Univers 75 mg 1-21 by mouth ity of tablet 18:13: daily. [address] Cholecalcif 2017-10 Yes 1000U Take 1,000 Univers leno, 1-21 Units by ity of Vitamin D3, 18:13: [place]. [place] (VITAMIN 18 Medical D3) 1,000 Branch unit capsule aspirin 81 2017-10 Yes 81mg Take 81 mg U nivers mg EC 1-21 by mouth ity of tablet 18:13: daily. [place] [address] Medical Branch Magnesium 2017-10 Yes Take by [facility] ers Hydroxide 1-21 mouth. ity of 400 mg (170 18:13: [place] mg) Chew Medical Branch DULoxetine 2017-10 Yes 60mg Take 60 mg U nivers (CYMBALTA) 1-21 by mouth ity o f 60 mg 18:13: daily. [place] capsule Medical Branch B 2017-10 Yes Take by Univers INFANTIS/B 1-21 mouth. ity of ANI/B KARUNA/B 18:13: [place] BIFID 18 Medical (PROBIOTIC Branch 4X ORAL) ranitidine 2017-10 Yes 150mg Take 150 Un jacinta (ZANTAC) 1-21 mg by ity of 150 mg 18:13: mouth 2 [place] tablet 18 (two) Medical times Branch daily. SELENIUM 2017-10 Yes Take by [facility] rs ORAL 1-21 mouth. ity of 18:13: [address] Branch clopidogrel 2017-10 Yes 75mg Take 75 mg Univers 75 mg -21 by mouth ity of tablet 18:13: daily. [address] Branch Cholecalcif 2017-10 Yes 1000U Take 1,000 Univers elno, 1-21 Units by ity of Vitamin D3, 18:13: [facility] D3[facility] 1,000 Branch unit capsule aspirin 81 2017-10 Yes 81mg Take 81 mg U nivers mg EC -21 by mouth ity of tablet 18:13: daily. [place] [address] Medical Branch Magnesium 2017-10 Yes Take by [facility] ers Hydroxide 1-21 mouth. ity of 400 [...] 4-6) or Pain (scale 7-10). PROAIR HFA Yes Univers 90 5-27 ity of mcg/actuati 00:00: [place] on inhaler Medical Branch PROAIR HFA Yes Univers 90 5-27 ity of mcg/actuati 00:00: [place] on inhaler Medical Branch PROAIR HFA Yes Univers 90 5-27 ity of mcg/actuati 00:00: [place] on inhaler Medical Branch PROAIR HFA Yes Univers 90 5-27 ity of mcg/actuati 00:00: [place] on inhaler Medical Branch PROAIR HFA Yes Univers 90 5-27 ity of mcg/actuati 00:00: [place] on inhaler Medical Branch PROAIR HFA Yes Univers 90 5-27 ity of mcg/actuati 00:00: [place] on inhaler Medical Branch PROAIR HFA Yes Univers 90 5-27 ity of mcg/actuati 00:00: [place] on inhaler Medical Branch PROAIR HFA Yes Univers 90 5-27 ity of mcg/actuati 00:00: [place] on inhaler 00 Medical Branch PROAIR HFA Yes Univers 90 5-27 ity of mcg/actuati 00:00: [place] on inhaler Medical Branch PROAIR HFA Yes Univers 90 5-27 ity of mcg/actuati [...] hen (NORCO 00:00: [place] 5) 5-325 mg Medical tablet Branch HYDROcodone 0 Yes Univer [...] 5) 5-325 mg 00 Medical tablet Branch [facility] 0 Yes Univer s (SINGULAIR) 5-10 ity of 10 mg 00:00: [place] tablet 00 Medical [facility] 2016-0 Yes Univer s (SINGULAIR) 5-10 ity of 10 mg 00:00: [place] tablet 00 Medical [facility] 2016-0 Yes Univer s (SINGULAIR) 5-10 ity of 10 mg 00:00: [place] tablet 00 Medical [facility] 2016-0 Yes Univer s (SINGULAIR) 5-10 ity of 10 mg 00:00: [place] tablet 00 Medical Branch [facility] 2016-0 Yes Univer s (SINGULAIR) 5-10 ity of 10 mg 00:00: [place] tablet 00 [facility] Univer s (SINGULAIR) 5-10 ity of 10 mg 00:00: [place] tablet 00 Medical [facility] Yes Univer s (SINGULAIR) 5-10 ity of 10 mg 00:00: [place] tablet 00 Medical [facility] Yes Univer s (SINGULAIR) 5-10 ity of 10 mg 00:00: [place] tablet 00 Medical [facility] 2016-0 Yes Univer s (SINGULAIR) 5-10 ity of 10 mg 00:00: [place] tablet 00 Medical Branch montelukast 0 Yes Univer s (SINGULAIR) 5-10 ity of 10 mg 00:00: [place] tablet 00 Medical Branch cyanocobala 0 Yes Univer s min 5-09 ity of (VITAMIN 00:00: [place] B12) 1,000 00 Medical mcg/mL Branch injection cyanocobala 0 Yes Univer s min 5-09 ity of (VITAMIN 00:00: [place] B12) 1,000 00 Medical mcg/mL Branch injection cyanocobala Yes Univer s min 5-09 ity of (VITAMIN 00:00: [place] B12) 1,000 00 Medical mcg/mL Branch injection cyanocobala 0 Yes Univer s min 5-09 ity of (VITAMIN 00:00: [place] B12) 1,000 00 Medical mcg/mL Branch injection cyanocobala 0 Yes Univer s min 5-09 ity of (VITAMIN 00:00: [place] B12) 1,000 00 Medical mcg/mL Branch injection cyanocobala Yes Univer s min 5-09 ity of [...] 1,000 00 Medical mcg/mL Branch injection methscopola Yes 5mg Take 5 mg U [...] mg 00 Medical tablet Branch SANKET 100 2015-0 Yes 100mg Take 100 U nivers mg tablet 4-11 mg by ity of 00:00: mouth [place] 00 daily. Medical Branch methscopola 2016-0 Yes 5mg Take 5 mg U nivers mine 4-11 by mouth ity of (PAMINE 00:00: daily. [place] FORTE) 5 mg 00 Medical tablet Branch SANKET 100 2015-0 Yes 100mg Take 100 U nivers mg tablet 4-11 mg by ity of 00:00: mouth [place] 00 daily. Medical Branch methscopola 2015-0 Yes 5mg Take 5 mg U nivers mine 4-11 by mouth ity of (PAMINE 00:00: daily. [place] FORTE) 5 mg 00 Medical tablet Branch SANKET 100 0 Yes 100mg Take 100 U nivers mg tablet 4-11 mg by ity of 00:00: mouth [place] 00 daily. Medical Branch methscopola 2015-0 Yes 5mg Take 5 mg U nivers mine 4-11 by mouth ity of (PAMINE 00:00: daily. [place] FORTE) 5 mg 00 Medical tablet Branch methscopola 2015-0 Yes 5mg Take 5 mg U nivers mine 4-11 by mouth ity of (PAMINE 00:00: daily. [place] FORTE) 5 mg 00 Medical tablet Branch SANKET 100 2015-0 Yes 100mg Take 100 U nivers mg tablet 4-11 mg by ity of 00:00: mouth [place] 00 daily. Medical Branch SANKET 100 2015-0 Yes 100mg Take 100 U nivers mg tablet 4-11 mg by ity of 00:00: mouth [place] 00 daily. Medical Branch methscopola 2016-0 Yes 5mg Take 5 mg U nivers mine 4-11 by mouth ity of (PAMINE 00:00: daily. [place] FORTE) 5 mg 00 Medical tablet Branch SANKET 100 2015-0 Yes 100mg Take 100 U nivers mg tablet 4-11 mg by ity of 00:00: mouth [place] 00 daily. Medical Branch methscopola 2016-0 Yes 5mg Take 5 mg U nivers mine 4-11 by mouth ity of (PAMINE 00:00: daily. [place] FORTE) 5 mg 00 Medical tablet Branch HUGOUVIA 100 2015-0 Yes 100mg Take 100 U nivers mg tablet 4-11 mg by ity of 00:00: mouth [place] 00 daily. Medical Branch methscopola 2015-0 Yes 5mg Take 5 mg U nivers mine 4-11 by mouth ity of (PAMINE 00:00: daily. [place] FORTE) 5 mg 00 Medical tablet Branch HUGOUVIA 100 0 Yes 100mg Take 100 U nivers mg tablet 4-11 mg by ity of 00:00: mouth [place] 00 daily. Medical Branch methscopola 2015-0 Yes 5mg Take 5 mg U nivers mine 4-11 by mouth ity of (PAMINE 00:00: daily. [place] FORTE) 5 mg 00 Medical tablet Branch SANKET 100 0 Yes 100mg Take 100 U nivers mg tablet 4-11 mg by ity of 00:00: mouth [place] 00 daily. Medical Branch glipiZIDE 0 Yes Univers XL 4-01 ity of (GLUCOTROL 00:00: [place] XL) 10 mg 00 Medical 24 hr Branch tablet metFORMIN Yes Univers (GLUCOPHAGE 4-01 ity of ) 1,000 mg 00:00: [place] tablet 00 Medical Branch omeprazole 0 Yes Univers (PRILOSEC) 4-01 ity of 40 mg 00:00: [place] capsule 00 Medical Branch glipiZIDE 0 Yes Univers XL 4-01 ity of (GLUCOTROL 00:00: [place] XL) 10 mg 00 Medical 24 hr Branch tablet metFORMIN 0 Yes Univers (GLUCOPHAGE 4-01 ity of ) 1,000 mg 00:00: [place] tablet 00 Medical Branch omeprazole 0 Yes Univers (PRILOSEC) 4-01 ity of 40 mg 00:00: [place] capsule 00 Medical Branch glipiZIDE 0 Yes Univers XL 4-01 ity of (GLUCOTROL 00:00: [place] XL) 10 mg 00 Medical 24 hr Branch tablet metFORMIN 0 Yes Univers (GLUCOPHAGE 4-01 ity of ) 1,000 mg 00:00: [place] tablet 00 Medical Branch glipiZIDE 0 Yes Univers XL 4-01 ity of (GLUCOTROL [...] 00 Medical Branch metFORMIN Yes Univers (GLUCOPHAGE 4-01 ity of [...] 00:00: [place] capsule 00 Medical Branch glipiZIDE 0 Yes Univers XL 4-01 ity of (GLUCOTROL [...] hr Branch tablet metFORMIN Yes Univers (GLUCOPHAGE 01-22 ity of ) 1,000 mg 00:00: [place] tablet 00 Medical Branch omeprazole Yes Univers (PRILOSEC) 4 ity of 40 mg 00:00: [place] capsule 00 Medical Branch glipiZIDE Yes Univers XL 01-22 ity of (GLUCOTROL 00:00: [place] XL) 10 mg 00 Medical 24 hr Branch tablet metFORMIN Yes Univers (GLUCOPHAGE 01-22 ity of ) 1,000 mg 00:00: [place] tablet 00 Medical Branch omeprazole Yes Univers (PRILOSEC) 4 ity of 40 mg 00:00: [place] capsule 00 Medical Branch Vital Signs Vital Name Observation Time Observation Value Comments Source Systolic blood 2022-05-08 02:00:00 145 mm[Hg] [facility] Diastolic blood 2022-05-08 02:00:00 84 mm[Hg] [facility] Heart rate 2022-05-08 02:00:00 87 /min [facility] Respiratory rate 2022-05-08 02:00:00 [facility] O[facility] in 2022-05-08 02:00:00 93 /min [facility] Arterial blood by [facility] Pulse oximetry [place] Body temperature 2022-05-07 23:21:00 36.44 [facility] Body height 2022-05-07 23:21:00 160 cm [facility] Body weight 2022-05-07 23:21:00 58.968 kg [facility] BMI 2022-05-07 23:21:00 23.03 kg/m2 [facility] Systolic blood 2021-07-28 02:18:00 137 mm[Hg] [facility] Diastolic blood 2021-07-28 02:18:00 101 mm[Hg] [facility] Heart rate 2021-07-28 02:18:00 114 /min [facility] Body temperature 2021-07-28 02:18:00 36.83 [facility] Respiratory rate 2021-07-28 02:18:00 20 /[facility] Body weight 2021-07-28 02:18:00 54.432 kg [facility] BMI 2021-07-28 02:18:00 20.60 kg/m2 [facility] Oxygen saturation in 2021-07-28 02:18:00 100 /min [facility] Arterial blood by [facility] Pulse oximetry Branch Procedures Procedure Date / Time Performing Clinician Source Performed XR ELBOW <3 VW LEFT 2022-05-07 23:48:42 Reynold Peña [facility] ED SPLINT APPLICATION 2021-07-28 04:01:28 Sobia Benitez [facility] XR WRIST 3+ VW LEFT 2021-07-28 02:47:37 Sobia Benitez [facility] NOTICE OF PRIVACY 2021-07-28 02:12:55 Doctor Maribeth, [facility] CONSENT/REFUSAL FOR 2021-07-28 02:11:02 Doctor Maribeth [facility] DIAGNOSIS AND TREATMENT [facility] [place] DEXA SELF-REFERRED AXIAL 2020-06-12 16:32:24 Mahin Gonzalez [facility] (HIP AND SPINE) [facility] NO SHOW OR MISSED 2020-06-12 15:28:40 Doctor Marbieth, [facility] APPOINTMENT POLICY [facility] ACKNOWLEDGEMENT [facility] PATIENT FINANCIAL 2020-06-12 15:28:13 Doctor Unawallace, [facility] POLICY [facility] NOTICE OF BILLING 2020-06-12 15:27:48 Doctor Maribeth [facility] PRACTICES FOR MEDICARE [facility] PATIENTS NOTICE OF PRIVACY 2020-06-12 15:27:26 Doctor Maribeth, [facility] CONSENT/REFUSAL FOR 2020-06-12 15:27:12 Doctor Maribeth [facility] DIAGNOSIS AND TREATMENT [facility] ASSIGNMENT OF BENEFITS 2020-06-12 15:26:57 Doctor Maribeth [facility] XR HAND 3+ VW RIGHT 2019-06-13 22:51:47 Chevy Bridges [facility] [place] [facility] [place] XR FINGERS 2 VW LEFT 2019-06-13 22:37:09 Chevy Bridges [facility] [place] [facility] XR FINGERS 2 VW RIGHT 2019-06-13 22:36:58 [facility] XR KNEE 3 VW RIGHT 2019-06-13 22:35:46 Chevy Bridges [facility] XR HAND 3+ VW LEFT 2019-06-13 22:35:35 Chevy Bridges [facility] [place] [facility] [place] NOTICE OF PRIVACY 2019-06-13 21:46:43 Doctor Unassigned, [facility] PRACTICES [facility] CONSENT/REFUSAL FOR 2019-06-13 21:45:54 Doctor Unassigned, [facility] DIAGNOSIS AND TREATMENT [facility] ASSIGNMENT OF BENEFITS 2019-06-13 21:45:39 Doctor Unassigned, [facility] Encounters Start End Encounter Admission Attending Care Care Encounter Source Date/Time Date/Time Type Type Clinicians Facility Department ID 2022-05-12 Inpatient UR [facility] Orthopaedic [id number] 20:42:24 [facility] 2021-08-25 Emergency [facility] [id number] Univers 03:52:11 [facility] 2022-05-13 2022-05-13 Outpatient Cristhian ALLEN [facility] [id number] Univers 10:00:00 10:00:00 ANTIONETTE [id number] [facility] 2022-05-13 2022-05-13 Outpatient Cristhian ALLEN [facility] [id number] Univers 10:00:00 10:00:00 ANTIONETTE [facility] 2022-05-12 2022-05-12 Outpatient Cristhian ALLEN [facility] [id number] Univers 13:30:00 13:30:00 ANTIONETTE [id number] [facility] 2022-05-10 2022-05-10 Outpatient Cristhian ALLEN [facility] [id number] Univers 14:45:00 14:45:00 ANTIONETTE [id number] [facility] 2022-05-10 2022-05-10 Outpatient R TIFFANY, [facility] [id number] Univers 14:45:00 14:45:00 ANTIONETTE [facility] 2022-05-07 2022-05-07 Emergency [facility] [id number] Univers 18:17:00 21:36:00 REYNOLD y [facility] 2022-05-07 2022-05-07 Emergency [facility] [id number] Univers 18:17:00 21:36:00 Reynold DAVIES [id number] i ty of [place] [id number] [facility] 084 Branch 2021-07-27 2021-07-27 Emergency [facility] [id number] Univers 21:23:00 22:50:00 Sobia Davies [id number] i [place] [id number] [facility] 084 [place] 2021-07-27 2021-07-27 Orders Doctor AJREN [id number] Univers 00:00:00 00:00:00 Only Unassigned, KRYSTINA [id number] ity of [place] 4.2.7.2.686 Adryan as [id number] [facility] 009 Branch 2021-01-13 2021-01-13 [facility] [id number] Univers 00:00:00 00:00:00 Outreach Lemuel PRIMARY [id number] i ty of [place] [facility] 4.2.7.2.[place] [id number] [place] 388 Branch 2021-01-13 2021-01-13 [facility] [id number] 00:00:00 00:00:00 Outreach Lemuel PRIMARY [id number] Tomi CARE 4.2.7.2.686 PAVILLION [id number] 2020-08-27 2020-08-27 Outpatient Raju_P MMG MMG [id number] [place] 11:17:00 11:17:00 1104 Medical Group 2020-06-12 2020-06-12 [facility] [id number] 11:00:00 23:59:00 Encounter Mahin Omer Lemoyne [id number] [place] 4.2.7.2.686 [place] [id number] 2020-06-12 2020-06-12 [facility] [id number] Univers 11:00:00 23:59:00 Encounter Mahin Omer [place]oyne [id number] ity [facility] 4.2.7.2.686 [facility] [id number] [address] 2020-06-12 2020-06-12 Outpatient [facility] [id number] Univers 11:00:00 11:00:00 MAHIN [id number] [facility] 2020-06-12 2020-06-12 Outpatient [facility] [id number] Univers 00:00:00 00:00:00 MAHIN [facility] 2020-05-27 2020-05-27 Outpatient Raju_P MMG G [id number] [place] 05:00:00 05:00:00 [id number] Medical [facility] 2019-09-03 2019-09-03 [facility] [id number] Univers 16:28:25 23:59:00 ANTIONETTE [facility] 2019-06-13 2019-06-13 [facility] [id number] 16:45:08 23:59:00 Encounter Trev Davies [id number] [place] 4.2.7.2.686 [place] [id number] 2019-06-13 2019-06-13 [facility] [id number] Univers 16:45:08 23:59:00 Encounter Trev Davies [id number] ity [facility] 4.2.7.2.686 [facility] [id number] [address] 2019-06-13 2019-06-13 [facility] Chevy [facility] 1.2.840.114 [id number] 16:44:50 16:44:50 Encounter Trev Lemoyne [id number] [place] 4.2.7.2.686 [place] [id number] 2019-06-13 2019-06-13 [facility] Chevy Bridges [facility] [id number] [facility] 16:44:50 16:44:50 Encounter Trev Lemoyne [id number] ity of [place] 4.2.7.2.686 [facility] [id number] [place] [address] Branch 2019-06-13 2019-06-13 [facility] Chevy Bridges [facility] 1.2.840.114 [id number] 16:44:31 16:44:31 Encounter Trev Lemoyne 350.1.13.10 [place] 4.2.7.2.686 [place] [id number] [facility] 2019-06-13 2019-06-13 Outpatient R CHEVY BRIDGES [facility] [id number] [facility] 16:44:31 16:44:31 ity [facility] 2019-06-13 2019-06-13 [facility] Boris [facility] 1.2.840.114 [id number] [facility] 16:44:31 16:44:31 Encounter Trev Jacintoton [id number] ity of [place] 4.2.7.2.686 [facility] [id number] [place] [address] Branch 2019-06-13 2019-06-13 [facility] Boris [facility] 1.2.840.114 [id number] [facility] 16:44:16 16:44:16 Encounter Trev Lemoyne [id number] ity of [place] 4.2.7.2.686 [facility] [id number] [place] [address] Branch 2019-06-13 2019-06-13 [facility] Chevy Bridges [facility] 1.2.840.114 [id number] 16:44:16 16:44:16 Encounter Trev Jacintoton 350.1.13.10 [place] 4.2.7.2.686 [place] [id number] [facility] 2019-06-13 2019-06-13 [facility] Boris [facility] 1.2.840.114 [id number] [facility] 16:44:00 16:44:00 Encounter Trev Davies [id number] ity of [place] 4.2.7.2.686 [facility] [id number] Medi [facility] 807 Branch 2019-06-13 2019-06-13 [facility] Chevy Bridges [facility] 1.2.840.114 [id number] 16:44:00 16:44:00 Encounter Trev Davies [id number] [place] [id number] [place] [id number] Results Test Description Test Time Test Comments Results Result Sour e Comments DEXA 2020-05-25 Addendum by Kali Nicholson of SELF-REFERRED 0 MD [place] [facility] AXIAL (HIP AND 16:38:48 on 06/12/2020 [...] for each 1.5 SD below the mean. [facility], Radiant Results Inft User - 06/12/2020 11:39 [...] Univers ity of RIGHT 1 abnormality. I, [facility] 23:09:26 Sarah Cantu MD., have reviewed this [...] within normallimits. The soft tissues are unremarkable. [facility], Radiant Results Inft User - 06/13/2019 6:11 [...] ity of LEFT 1 abnormality is [place] [facility] 22:45:33 present. Mild Branch osteoarthrosis [...] subluxations are seen. No effusion is present. [facility], Radiant Results Inft User - 06/13/2019 5:47 [...] subluxations are seen. No effusion is present. [facility], Radiant Results Inft User - 06/13/2019 5:47 [...]
[2022-05-13] MEDS ORDERED: DULOXETINE 20 MG CAP PO SCH (21:00)
[2022-05-13] MEDS: GABAPENTIN 300 MG CAP PO SCH (22:48)
[2022-05-13] MEDS: PANTOPRAZOLE 40MG TABLET PO SCH (22:49)
[2022-05-14] MEDS: HYDROCODONE/APAP 10/325 TAB PO PRN ×2 (01:38→08:52)
[2022-05-14 02:10] LABS: Specific Gravity 1.015 (1.005-1.030); Urine Bilirubin Negative (Negative); Urine Blood Negative (Negative); Urine Clarity Clear (Clear); Urine Color Yellow (Yellow); Urine Glucose Trace (Negative); Urine Protein 1+ (Negative); Urine Urobilinogen 0.2 mg/dL (0.2-1.0); Urine pH 7.5 (5.0-7.0)
[2022-05-14 02:19] LABS: Urine Bacteria <20 /HPF (<20); Urine RBC <5 /HPF (None Seen)
[2022-05-14 02:20] LABS: Urine Mucus 1+ /HPF (None Seen)
[2022-05-14 03:25] LABS: Hematocrit 27.8 % (36.0-45.0); Lymphocytes % 31.3 % (15.3-44.8); MCV 64.7 fL (80-100); MPV 6.8 fL (7.6-11.3)
[2022-05-14 03:41] LABS: Albumin 2.7 g/dL (3.4-5.0); Magnesium 1.9 mg/dL (1.8-2.4); Phosphorus 3.6 mg/dL (2.5-4.9); Potassium 4.2 mmol/L (3.5-5.1)
[2022-05-14] MEDS: BENZONATATE 100 MG CAP PO PRN (05:24)
[2022-05-14] MEDS: PANTOPRAZOLE 40MG TABLET PO SCH (06:13)
[2022-05-14] MEDS ORDERED: LEVOTHYROXINE SODIUM 200 MCG PO SCH (06:30)
[2022-05-14] MEDS: INSULIN -REGULAR HUMAN 50 UNIT/0.5 ML ML SQ SCH ×2 (07:30→12:17)
[2022-05-14] MEDS ORDERED: HOME MED 1 EA UNK (Omeprazole [Prilosec] 40 MG Capsule.Dr) PO SCH (07:30)
[2022-05-14] MEDS: CEFTRIAXONE 1,000 MG in NA CHLORIDE 0.9% 50 ML IVPB SCH (08:46)
[2022-05-14] MEDS: GABAPENTIN 300 MG CAP PO SCH ×2 (08:52→13:45)
[2022-05-14] MEDS: ENOXAPARIN 40 MG/0.4 ML SQ SCH (08:52)
[2022-05-14] MEDS: CLOPIDOGREL 75 MG TABLET PO SCH (08:52)
[2022-05-14] MEDS: NICOTINE 21 MG/PAT TD SCH (08:53)
[2022-05-14] MEDS ORDERED: lisinopriL 5 MG TAB PO SCH (09:00)
[2022-05-14] MEDS ORDERED: carvediloL 6.25 MG TAB PO ONE (12:24)
[2022-05-14 12:37] VITALS: BP 137/71; TEMP 97.3
--- NOTE | 2022-05-14 20:15 | P.PN ---
Subjective Date of Service: 05/14/22 Chief Complaint: Hyponatremia, UTI Subjective: No new changes Physical Examination - Vital Signs Temperature: 97.3 F Blood Pressure: 137/71 Pulse: 78 Respirations: 20 Pulse Ox (%): 97 - Physical Exam General: In no apparent distress HEENT: Atraumatic, Normocephalic Neck: Supple, JVD not distended Respiratory: Clear to auscultation bilaterally Cardiovascular: No rubs, No murmurs Gastrointestinal: Soft and benign, No guarding Musculoskeletal: No clubbing Integumentary: No warmth Neurological: Normal speech, Normal tone Lymphatics: No axilla or inguinal lymphadenopathy Urinary: Other (No bladder distention) External genitalia: Deferred Rectal: Deferred - Studies Microbiology Data (last 24 hrs): 05/11/22 20:30 Clean Catch Urine [place] Count - Final >100,000 CFU/ML. 05/11/22 20:30 Clean Catch Urine - Final Klebsiella Pneumoniae Assessment And Plan - Plan # Hyponatremia 2/2 high ADH state from HCTZ use aggravated by narcotic use, acute on chronic pain issues, acute GI issues, & dec po solid food intake Dc thiazide permanently Minimize narcotic use Encouraged po solid food intake full plate tid Garibay 15g po bid x 2-4 wks [place] po fluid intake # HypoMg Monitor/replete prn # HypoK Monitor/replete prn # Htn BP above goal Start Coreg 6.25 mg po bid # UTI Received abx # L arm fracture F/u w/ ortho service
[2022-05-14] MEDS ORDERED: AMOX/K CLAV 875 MG TAB PO SCH (21:00)
[2022-05-14] MEDS ORDERED: carvediloL 6.25 MG TAB PO SCH (21:00)
--- NOTE | 2022-05-21 21:55 | P.DS ---
Admission Date: 05/11/22 Discharge Date: 05/14/22 Disposition: ROUTINE DISCHARGE Discharge Condition: GOOD Reason for Admission: Hyponatremia, UTI Brief History of Present Illness: 62-year-old female with history of COPD, hypertension, CVA, diabetes mellitus type [id number], hypothyroidism presents to the emergency department for frequent falls, intermittent dizziness. Patient had a fall on Tuesday went to the ER in [place] and was diagnosed with a distal humeral/supracondylar fracture. She has had 2 more falls since then she was supposed to follow-up with orthopedic today but unable to make it given feeling weak. Patient was evaluated in the emergency department here she is found to have urinary tract infection with leukocytosis, microcytic anemia, moderate hyponatremia, hypokalemia. Patient reports she is been dealing with falls over the course of the last 10 years but this week has been worse, she denies ever having low sodium levels in the past she does take hydrochlorothiazide at home she is unsure if the dose reports there have been any changes recently. She denies alcohol intake she does report that she takes hydrocodone 10 mg "the maximum dose and frequency possible". She was also noted to be anemic with a hemoglobin of 8, she reports that a few weeks ago she had some bright red blood in her stool with diarrhea but this is since resolved, her rectal exam in the ER was Hemoccult negative with brown stool. She does have a cane, walker at home that she typically uses she has been using her cane recently with the falls. ED provider wishes to admit for further evaluation and management. Hospital Course: Problem List Frequent falls, unsteady gaits secondary to UTI acute metabolic encephalopathy secondary to UTI Hyponatremia secondary to HCTZ Microcytic anemia Hypokalemia Diabetes mellitus type [id number]-boulzlual Hypertension COPD Tobacco abuse Left humeral fracture-subacute Chronic pain Patient was found to have a urinary tract infection, which is the most likely culprit of her altered mentation and falls. Patient continued with AMS for >2 days, with gradual improvement. She was also noted to have low sodium. Nephrology was consulted and felt secondary to her hydrochlorothiazide, hypovolemia, and infection. She had improvement of her symptoms and electrolytes with iv hydration and antibiotics. Her pain was well-controlled with her home pain medication regimen. PT worked with patient and she ambulated without assistance. Orthopedic Surgery - Dr. Gonzalez was consulted and recommended surgical correction of her distal humerus within the next week or so. It was discovered patient had referral to Dr. Sahu. He was contacted and imaging and Dr. Gonzalez's recommendations were reviewed with Dr. Sahu. He recommended patient to follow up in his office on Tuesday afternoon 05/17, and will fit patient into his schedule. Discharged with 7 days of augmentin for UTI. Ure-na recommended by nephrology. Follow up: PCP within 1 week Nephrology - ~[address] Sahu this Tuesday - 05/17 at 1pm Physical exam GEN: Alert, oriented x3, NAD CV: Regular rate and rhythm, no edema Pulm: non-labored respirations on room air ABD: Soft, nontender, nondistended MSK: LUE in sling, intact distal sensation. tenderness with ROM Neuro: Normal speech, normal affect Vital Signs/Physical Exam: Temp Pulse Resp BP Pulse Ox 97.3 F 78 20 137/71 97 05/15/22 05:22 05/15/22 05:22 05/15/22 05:22 05/15/22 05:22 05/15/22 05:22 Laboratory Data at Discharge: WBC 12.7 K/uL (4.3-10.9) H 05/14/22 03:09 Hgb 8.7 g/dL (12.0-15.0) L 05/14/22 03:09 Hct 27.8 % (36.0-45.0) L 05/14/22 03:09 Plt Count 460 K/uL (152-406) H 05/14/22 03:09 PT 11.1 SECONDS (9.5-12.5) 05/11/22 19:50 INR 1.01 05/11/22 19:50 APTT 29.6 SECONDS (24.3-36.9) 05/11/22 19:50 Sodium 129 mmol/L (136-145) L 05/14/22 03:09 Potassium 4.2 mmol/L (3.5-5.1) 05/14/22 03:09 BUN 9 mg/dL (7-18) 05/14/22 03:09 Creatinine 0.65 mg/dL (0.55-1.3) 05/14/22 03:09 Glucose 143 mg/dL (74-106) H 05/14/22 03:09 Uric Acid 2.2 mg/dL (2.6-6.0) L 05/13/22 03:39 Phosphorus 3.6 mg/dL (2.5-4.9) 05/14/22 03:09 Magnesium 1.9 mg/dL (1.8-2.4) D 05/14/22 03:09 Total Bilirubin 0.3 mg/dL (0.2-1.0) 05/12/22 02:21 AST < 3 U/L (15-37) L 05/12/22 02:21 ALT < 10 U/L (12-78) L 05/12/22 02:21 Alkaline Phosphatase 93 U/L (45-117) 05/12/22 02:21 Home Medications: Albuterol Sulfate [Albuterol Sulfate Hfa] 1 puff IN DAILY PRN 06/16/20 Clopidogrel Bisulfate [Plavix*] 75 mg PO DAILY 06/16/20 Duloxetine [Cymbalta *] 60 mg PO BEDTIME 06/16/20 Gabapentin 300 mg PO TID 06/16/20 Glipizide [Glipizide ER] 10 mg PO DAILY 06/16/20 Hydrocodone 10/APAP 325 [[place] 10/325*] 1 tab PO QID PRN 06/16/20 Levothyroxine [place] [address]/16/20 Lisinopril [Zestril] 5 mg PO DAILY 06/16/20 Magnesium Oxide [Magnesium] 500 mg PO BID 06/16/20 Metformin HCl [Metformin ER Osmotic] 1,000 mg PO BID 06/16/20 Montelukast [Singulair*] 10 mg PO BEDTIME 06/16/20 Omeprazole [Prilosec] [place] [address]/16/20 Simvastatin 10 mg PO BEDTIME 06/16/20 Biotin 10,000 mcg PO DAILY 03/15/22 Cholecalciferol (Vitamin D3) [Vitamin D3] 2,000 unit PO DAILY 03/15/22 LORazepam [Ativan*] 0.5 mg PO DIRECTED 03/15/22 Potassium Chloride 10 meq PO DAILY 03/15/22 Amox/Clavulanate [Augmentin 875-125 Tab] 1 each PO BID 7 Days #14 tab 05/14/22 Benzonatate [Tessalon Perle*] 100 mg PO Q8H PRN #20 cap 05/14/22 Ferrous Sulfate [Feosol] 325 mg PO DAILY 30 Days #30 tablet 05/14/22 Urea [Ure-Na] 15 gm PO BID 30 Days #60 powd.pack 05/14/22 carvediloL [Coreg*] 6.25 mg PO BID 30 Days #60 tab 05/14/22 New Medications: Amox/Clavulanate [Augmentin 875-125 Tab] 1 each PO BID 7 Days #14 tab carvediloL [Coreg*] 6.25 mg PO BID 30 Days #60 tab Ferrous Sulfate [Feosol] 325 mg PO DAILY 30 Days #30 tablet Benzonatate [Tessalon Perle*] 100 mg PO Q8H PRN #20 cap PRN Reason: Cough Urea [Ure-Na] 15 gm PO BID 30 Days #60 powd.pack Physician Discharge Instructions: Patient was found to have a urinary tract infection, which is the most likely culprit of her altered mentation and falls. She was also noted to have low sodium. Nephrology was consulted and felt secondary to her hydrochlorothiazide, hypovolemia, and infection. She had improvement of her symptoms and electrolytes with iv hydration and antibiotics. Her pain was well-controlled with her home pain medication regimen. PT worked with patient and she ambulated without assistance. Orthopedic Surgery - Dr. Gonzalez was consulted and recommended surgical correction of her distal humerus within the next week or so. It was discovered patient had referral to Dr. Sahu. He was contacted and imaging and Dr. Gonzalez's recommendations were reviewed with Dr. Sahu. He recommended patient to follow up in his office on 05/17, and will fit patient into his schedule. Discharged with 7 days of augmentin for UTI. Ure-na recommended by nephrology. Follow up: PCP within 1 week Nephrology - ~[address] Sahu this Tuesday - 05/17 at 1pm Followup: Rochelle Caro MD [ACTIVE - CAN ADMIT] - 1-2 Weeks (follow up as ordered.) Mahin Gonzalez MD [ACTIVE - CAN ADMIT] - (follow up on Tuesday.) Chevy Escalante MD [Primary Care Provider] - 1 Week (call for apt) Time spent managing pt's care (in minutes): 45
== END 2022-05-14 15:23 | disposition home or self-care (01) | DRG 689 ==
LOC: ER 18:56 → ERHOLD 22:39 → 4TH 05-12 05:45
PROVIDERS: ADMIT Hospitalist; ATTEND Hospitalist
PROC: 30233N1 Transfusion of Nonautologous Red Blood Cells into Peripheral Vein, Percutaneous Approach (ICD-10-PCS; principal; 2022-05-12)
DX: N39.0 Urinary tract infection, site not specified (principal); G93.41 Metabolic encephalopathy; S42.492A Other displaced fracture of lower end of left humerus, initial encounter for closed fracture; E87.1 Hypo-osmolality and hyponatremia; J44.9 Chronic obstructive pulmonary disease, unspecified; I10 Essential (primary) hypertension; E03.9 Hypothyroidism, unspecified; E11.40 Type 2 diabetes mellitus with diabetic neuropathy, unspecified; I69.398 Other sequelae of cerebral infarction; R26.89 Other abnormalities of gait and mobility; D50.9 Iron deficiency anemia, unspecified; E87.6 Hypokalemia; E78.5 Hyperlipidemia, unspecified; B96.1 Klebsiella pneumoniae [K. pneumoniae] as the cause of diseases classified elsewhere; G89.29 Other chronic pain; T50.2X5A Adverse effect of carbonic-anhydrase inhibitors, benzothiadiazides and other diuretics, initial encounter; E83.42 Hypomagnesemia; F17.210 Nicotine dependence, cigarettes, uncomplicated; Z20.822 Contact with and (suspected) exposure to COVID-19
CPT/HCPCS: 36415; 70450; 71045; 72125; 72170; 80048; 80053; 80069; 81001; 81003; 81015; 82533; 82728; 82947; 83540; 83735; 83880; 83930; 83935; 84132; 84300; 84439; 84443; 84466; 84550; 85025; 85610; 85730; 86850; 86900; 86901; 87077; 87086; 87088; 87186; 93005; 94010; 96360; 96361; 97110; 97116; 97161; 97530; 99285; J0360; J1650; J1815; J2405; J3475; J7030; J7050; P9016; U0003